=== PATIENT | female | born 1990 | race Caucasian/White ===

== ENCOUNTER → 2017-05-09 11:15 | Outpatient (CLI) | payer MEDICAID, SELFPAY ==
[2017-05-09 11:42] LABS: Absolute Lymphocyte Count 1.93 X10^3/ul (0.83-4.51); Absolute Neutrophil Count 9.8 X10^3/uL (2.0-7.7); Basophil# 0.05 X10^3/uL; Basophil% 0.4 % (0-1); Eosinophil# 0.25 X10^3/uL; Eosinophils% 1.9 % (0-5); Hematocrit 37.6 % (37-47); Hemoglobin 12.9 g/dl (12.0-15.0); Lymphocyte # 1.93 X10^3/ul (4.0); Mean Corp Hgb Conc 34.3 g/gl (32-36); Mean Corpuscular Hgb 33.6 pg (27.0-32.0); Mean Corpuscular Volume 97.9 fL (81-99); Mean Platelet Vol. 11.8 fl (6.2-12.0); Monocyte# 0.78 X10^3/uL; Monocyte% 6.1 % (0-10); Neutrophil # 9.84 X10^3/uL (2.7-7.7); Neutrophil % 76.3 % (47-70); POSITIVE COUNT NO; POSITIVE DIFFERENTIAL NO; POSITIVE MORPHOLOGY NO; Platelet Count 272 K/mm3 (150-450); RBC Distribution Width CV 11.2 % (11.6-14.6); RBC Distribution Width SD 38.8 fl (35.1-43.9); Red Blood Count 3.84 M/mm3 (4.2-5.4); White Blood Count 12.9 K/mm3 (4.4-11.0)
[2017-05-09 12:37] LABS: Rubella IgG 21.3 IU/mL
[2017-05-09 22:09] LABS: Chlamydia Trachomatis by PCR Negative (Negative); Neisserai gonorrhoeae by PCR Negative (Negative); Probe Check PASS; Sample Adequacy Control PASS; Specimen Processing Control PASS
[2017-05-10 14:43] LABS: HEPATITIS B SURFACE AG Negative (Negative)
[2017-05-16 03:55] LABS: Rapid Plasmin Reagin (RPR) NONREACTIVE (NONREACTIVE)
== END ==
PROVIDERS: Obstetrics & Gynecology; Visit Provider Nurse Practitioner Women's Health
DX: O09.91 Supervision of high risk pregnancy, unspecified, first trimester (principal); Z3A.00 Weeks of gestation of pregnancy not specified
CPT/HCPCS: 36415; 85025; 86592; 86762; 86850; 86900; 87086; 87088; 87340; 87491; 87591

== ENCOUNTER → 2017-05-26 14:17 | Outpatient (CLI) | payer MEDICAID, SELFPAY | DX: Z36.82 Encounter for antenatal screening for nuchal translucency (principal) | CPT/HCPCS: 36415 ==

== ENCOUNTER → 2017-07-04 12:34 | Outpatient (CLI) | payer MEDICAID, SELFPAY ==
[2017-07-04 14:08] LABS: HIV - WCH Non-Reactive (Nonreactive)
== END ==
PROVIDERS: Obstetrics & Gynecology; Visit Provider Nurse Practitioner Women's Health
DX: O09.91 Supervision of high risk pregnancy, unspecified, first trimester (principal); Z3A.00 Weeks of gestation of pregnancy not specified
CPT/HCPCS: 36415; 86703

== ENCOUNTER → 2017-07-18 12:15 | Outpatient (CLI) | payer MEDICAID, SELFPAY ==
--- NOTE | 2017-07-18 12:16 | US_ITS ---
STUDY: SECOND AND THIRD TRIMESTER OBSTETRICAL ULTRASOUND REASON FOR EXAM: Female, 26 years old. Routine survey. LMP: March 06, 2017. TECHNIQUE: Transabdominal PRIOR ULTRASOUND: None. FINDINGS: There is a single intrauterine fetus. The fetus is in a footling breech presentation. There is demonstrated cardiac activity with a heart rate of 142 bpm. There is a normal amniotic fluid volume. The largest amniotic fluid pocket measures 7.6 cm x 2.8 cm. The placenta is anterior in location and is not low lying. There are Grade 0 placental changes. The cervix measures 3.3 cm in length. The adnexal regions are not visualized. BIOMETRY: BPD: 4.32 cm: 19 weeks, 1 days HC: 16.17 cm: 19 weeks, 0 days AC: 14.56 cm: 20 weeks, 0 days FL: 2.84 cm: 18 weeks, 5 days CI: 77% FL/BPD: 66% FL/HC: FL/AC: 20% HC/AC: 1.1 age by current US: 19 weeks, 2 days. MACHO by current US: December 10, 2017. Estimated weight: 284 grams, +/- 42 grams, 54 %. Age by LMP: 19 weeks, 1 days. MACHO by LMP: December 11, 2017. ANATOMY: Gender: Male Cranium: Normal lateral ventricles. Choroid plexus cyst measuring 3 mm x 4 mm x 2 mm. Normal cerebellum. Normal cisterna magna. Normal face, nose and lips. Chest: Normal 4-chamber heart. Abdomen/Pelvis: Normal diaphragm. Normal stomach. Normal abdominal wall. Normal cord insertion. Normal 3 vessel cord. Normal kidneys. Normal bladder. Spine: Normal cervical spine. Normal thoracic spine. Normal lumbar spine. Normal sacrum. Extremities: Normal bilateral upper extremities. Normal bilateral lower extremities. US/OB Anatomy Scan IMPRESSION: Single live intrauterine gestation with a mean gestational age of 19 weeks and 2 days. 3 mm x 4 mm x 2 mm choroid plexus cyst. Electronically Signed: Valente Stanley MD at 20:36 EDT Tel [phone], Service support ,
== END ==
PROVIDERS: Visit Provider Obstetrics & Gynecology
DX: O09.91 Supervision of high risk pregnancy, unspecified, first trimester (principal); Z3A.00 Weeks of gestation of pregnancy not specified
CPT/HCPCS: 76805

== ENCOUNTER → 2017-07-22 12:48 | Outpatient (CLI) | payer MEDICAID, SELFPAY | PROVIDERS: Visit Provider Obstetrics & Gynecology | DX: O35.0XX0 Maternal care for (suspected) central nervous system malformation in fetus, not applicable or unspecified (principal); Z3A.00 Weeks of gestation of pregnancy not specified ==

== ENCOUNTER → 2017-09-18 15:00 | Outpatient (CLI) | payer MEDICAID, SELFPAY ==
--- NOTE | 2017-09-18 15:00 | DT_ITS ---
This patient was seen during an EMR downtime September 15, 2017 - September 22, 2017. This patient may have a combination of paper and electronic documentation or all paper documentation. All documentation is viewable within the e-chart portion of [employer] for each patient visit.
[2017-09-23 03:50] LABS: Glucose Challenge Gest 1H 50g 88 mg/dL (70-140)
[2017-09-23 03:56] LABS: Absolute Lymphocyte Count 1.99 X10^3/ul (0.83-4.51); Absolute Neutrophil Count 10.1 X10^3/uL (2.0-7.7); Basophil# 0.02 X10^3/uL; Basophil% 0.2 % (0-1); Eosinophil# 0.23 X10^3/uL; Eosinophils% 1.8 % (0-5); Hemoglobin 11.2 g/dl (12.0-15.0); Lymphocyte # 1.99 X10^3/ul (4.0); Lymphocyte % 15.2 % (19-41); Mean Corp Hgb Conc 32.9 g/gl (32-36); Mean Corpuscular Volume 94.2 fL (81-99); Mean Platelet Vol. 11.2 fl (6.2-12.0); Monocyte% 5.4 % (0-10); Neutrophil # 10.09 X10^3/uL (2.7-7.7); Neutrophil % 77.1 % (47-70); POSITIVE COUNT NO; POSITIVE DIFFERENTIAL NO; POSITIVE MORPHOLOGY NO; Platelet Count 237 K/mm3 (150-450); RBC Distribution Width CV 12.9 % (11.6-14.6); RBC Distribution Width SD 44.1 fl (35.1-43.9); Red Blood Count 3.61 M/mm3 (4.2-5.4); White Blood Count 13.1 K/mm3 (4.4-11.0)
== END ==
PROVIDERS: Visit Provider Nurse Practitioner Women's Health
DX: O09.92 Supervision of high risk pregnancy, unspecified, second trimester (principal); Z3A.00 Weeks of gestation of pregnancy not specified
CPT/HCPCS: 36415; 82950; 85025

== ENCOUNTER → 2017-11-17 19:25 | Outpatient (CLI) | payer MEDICAID, SELFPAY ==
[2017-11-17 20:40] LABS: Group B Strep DNA By PCR Negative (Negative); Internal Control PASS; Probe Check PASS; Specimen Processing Control PASS
== END ==
PROVIDERS: Visit Provider Obstetrics & Gynecology
DX: O09.91 Supervision of high risk pregnancy, unspecified, first trimester (principal); Z3A.00 Weeks of gestation of pregnancy not specified
CPT/HCPCS: 87081; 87653

== ENCOUNTER 2017-12-01 15:40 | Inpatient (IN) | payer MEDICAID, SELFPAY ==
[2017-12-01 16:04] VITALS: BMI 28.3
[2017-12-01] MEDS: 0.9% Saline Lock 10 ML Syringe IV (16:56)
[2017-12-01 17:22] LABS: Hematocrit 37.1 % (37-47); Hemoglobin 12.2 g/dl (12.0-15.0); Mean Corp Hgb Conc 32.9 g/gl (32-36); Mean Corpuscular Hgb 30.4 pg (27.0-32.0); Mean Corpuscular Volume 92.5 fL (81-99); Mean Platelet Vol. 10.9 fl (6.2-12.0); Platelet Count 265 K/mm3 (150-450); RBC Distribution Width CV 12.8 % (11.6-14.6); RBC Distribution Width SD 43.1 fl (35.1-43.9); Red Blood Count 4.01 M/mm3 (4.2-5.4); White Blood Count 13.1 K/mm3 (4.4-11.0)
[2017-12-01 17:24] LABS: Scan Indicated on CBC? Y/N NO
[2017-12-01] MEDS: miSOPROStol 25 MCG TABLET VAGINAL ×2 (18:21→23:00)
--- NOTE | 2017-12-02 01:04 | PCM.HP.OB ---
- Problem List (1) Oligohydramnios Status: Acute (2) Choroid plexus cyst of fetus Status: Acute Qualifiers: Comment: normal NIPT screening, no further fu indicated (3) Tobacco use complicating Status: Acute Qualifiers: Comment: encouraged cessation (4) Supervision of high risk in first trimester Status: Acute Comment: PRR MACHO 12/11/17 boyfriend Sukhwinder KOSTAS Leyva History Date of Admission: 12/02/17 Final MACHO: 12/11/17 Gestational age: 38 Weeks and 5 Days History of this : This is a 27 year-old, at 38 weeks gestational age with oligohydramnios, an danny of 3.8 cm in the office today. she denies any lof, vb. she admits good fm and has no regular ctx. Allergies No Known Allergies Allergy (Verified 12/01/17 16:15) Home Medications: Home Medications [place]-3/Dha/Epa/Fish Oil [Fish Oil 1,000 mg Softgel] 1 each PO DAILY 12/01/17 [id number] fum 28 mg-folic acid 800 mcg-dha 200 mg oral pack See Label Instructions PO .COMPLEX 12/01/17 Smoking Status: Light Smoker (<10/day) Alcohol: None Number of Fetus(es): 1 Heart Tracin moderate variability reactive no decels cat I tracing TOCO Analysis: irregular History Past Pregnancies: Past Pregnancies Delivery Date Name GA/Weeks Outcome Route Weight Infant Gender Labor Length Anesthesia Delivery Location Provider FOB Labs: Mom's Labs & Results 12/01/17 12/01/17 16:56 16:56 WBC 13.1 H RBC 4.01 L Hgb 12.2 Hct 37.1 MCV 92.5 MCH 30.4 MCHC 32.9 RDW 12.8 RDW Differential 43.1 Plt Count 265 MPV 10.9 Blood Type O POSITIVE Antibody Screen NEGATIVE Course Did the patient receive Yes care? Labs Blood Type: O RH: POSITIVE RPR/VDRL/Syphilis Nonreactive Rubella status Immune HbSAg Negative Date Done: 05/09/17 Chlamydia Negative Gonorrhea Negative HIV/AIDS Non-Reactive Group B Strep: Negative Current Obstetrical History Gestational Diabetes No Incompetent Cervix No Infertility No IUGR No Macrosomia No Hypertension/Pre-eclampsia No Placenta Previa/Abruption No PTL/PROM No Uterine anomaly No Oligohydramnios No Polyhydramnios No Multiple gestation No Past Medical History Asthma No Diabetes No Hypertension No Heart disease No Mitral valve prolapse No Neurologic/Seizure disorder/ No Migraines Kidney disease No Liver disease No Varicosities No Clotting disorders/Hx of DVT No Thyroid Dysfunction No Other medical diseases No Psychiatric disorders No Major trauma No Abnormal PAP smear No Sleep apnea No Mammogram in the last 2 years Yes Social History Marital Status: SINGLE Alleged father luann gomez Hx Smoking Yes Smoking Status Light Smoker (<10/day) How long have you used na substances (years)? Expected Infant Delivery Method: Spontaneous Vaginal Review of Systems Constitutional: Denies: Fever, Malaise Eyes: Denies: Blurred vision, Vision Change HEENT: Denies: Head Aches, Visual Changes Cardiovascular: Denies: Chest Pain, Palpitations Respiratory: Denies: Cough, Shortness of Breath, Wheezing Gastrointestinal: Denies: Abdominal Pain, Diarrhea, Nausea, Vomiting Genitourinary: Denies: Dysuria, Hematuria Musculoskeletal: Denies: Joint Pain, Muscle pain Skin: Denies: Lesions, Rash Neurological: Denies: Blurred vision, Focal weakness, Headaches Psychiatric: Denies: Anxiety, Depression Endocrine: Denies: Heat/ Cold Intolerance Hematologic/ Lymphatic: Denies: Easy Bruising, Easy Bleeding Physical Exam General: Alert, Cooperative, No apparent distress HEENT: Atraumatic, Normocephalic. Negative for: Thyromegaly, Lymphadenopathy Cardiovascular: Regular rate Lungs: Normal air movement Abdomen: Soft, Non Tender, Gravid Neurological: Deep Tendon Reflexes 2+/4 and Symmetrical, Neuro grossly intact. Negative for: Clonus [employer]: Normal external genitalia. Negative for: Vulvar lesions Estimated gestational size: Appropriate for gestational size Presentation: Cephalic Cervix Dilation (cm): 1 Station: -2 Effacement (%): 50 Assessment/Plan All Active Problems (Last Reviewed 12/01/17 @ 14:45 by Angelique Lind) Oligohydramnios (Acute) Uterine size date discrepancy (Acute) Choroid plexus cyst of fetus (Acute) Tobacco use complicating (Acute) Supervision of high risk in first trimester (Acute) screening encounter (Resolved) This is a 27 year-old, at 38 weeks gestational age presents IOL oligo 1. oligohydramnios - 3.8 cm DANNY in office today Patient presents IOL cytotec then pitocin, plan expectant management for . AROM when able Pain management: plans epidural. GBS negative. Management of any complications: none I have reviewed the [facility] and made any clinically relevant updates.
[2017-12-02] MEDS: miSOPROStol 25 MCG TABLET VAGINAL ×4 (03:00→15:00)
[2017-12-02] MEDS: 0.9% Saline Lock 10 ML Syringe IV ×2 (06:46→13:44)
[2017-12-02] MEDS: Nalbuphine 10 MG/ML Ampul IV ×2 (13:44→22:30)
--- NOTE | 2017-12-02 18:00 | PCM.PN.BLA ---
Progress Note fht 130s moderate variability reative no decels toco q3-4. s/p cytotec x 6 will proceed to pitocin. exp managemnt
[2017-12-02] MEDS: Lactated Ringers 1,000 ML 50 ML IV ×2 (19:24→22:08)
[2017-12-02] MEDS: Oxytocin 30 units/NS 500 ml 30 UNITS/500 ML IV.SOLN IV (19:25)
[2017-12-03] MEDS: Amnioinfusion- 0.9% NS 1,000 ML IV.SOLN. INTRA-UTER (00:45)
[2017-12-03] MEDS: Oxytocin 30 units/NS 500 ml 30 UNITS/500 ML IV.SOLN 334 UNITS IV (01:05)
[2017-12-03] MEDS: Oxytocin 30 units/NS 500 ml 30 UNITS/500 ML IV.SOLN 167 UNITS IV (01:35)
[2017-12-03 09:45] VITALS: BP 101/52; PULSE 91; RESP 18; TEMP 37.2
[2017-12-03] MEDS: Ibuprofen 600 MG Tablet PO (10:30)
[2017-12-03 13:00] VITALS: BP 120/67; PULSE 96; RESP 16; TEMP 37.2
[2017-12-03] MEDS: Acetaminophen 500 MG Tablet 1000 MG PO ×2 (14:48→23:08)
[2017-12-03 17:00] VITALS: BP 107/67; PULSE 96; RESP 20; TEMP 36.4
[2017-12-03 20:15] VITALS: BP 130/75; PULSE 103; RESP 16; TEMP 36.5
[2017-12-04 01:15] VITALS: BP 110/56; PULSE 100; RESP 16; TEMP 36.9
[2017-12-04] MEDS: Naproxen 250 MG Tablet PO ×2 (05:27→17:18)
[2017-12-04 08:00] VITALS: BP 99/56; PULSE 84; RESP 16; TEMP 36.3
--- NOTE | 2017-12-04 08:01 | PCM.PN.OB ---
Patient Problems: Active and Suspected Problems (Last Reviewed 12/01/17 @ 14:45 by Angelique Lind) Oligohydramnios (Acute) Subjective: No CP, LOF. Doing well without concerns. Pain controlled. - Physical Exam General: Alert, Oriented x3 Abdomen: - - FF below U Vital Signs Temp Pulse Resp BP 98.4 F 100 16 110/56 L 12/04/17 01:15 12/04/17 01:15 12/04/17 01:15 12/04/17 01:15 Oxygen Delivery Method Room Air Weight: 164 lb 14.492 oz Body Mass Index (BMI) 28.3 Intake and Output for Last 24 Hours 12/02/17 12/03/17 12/04/17 23:59 23:59 23:59 Intake Total 1999 2499 / 2499 Output Total 1200 / 1200 500 / 500 Balance 800 / 800 1998 Medical Necessity - Tobacco Use Smoking Status: Light Smoker (<10/day) Assessment/Plan All Active Problems (Last Reviewed 12/01/17 @ 14:45 by Angelique Lind) Oligohydramnios (Acute) Uterine size date discrepancy (Acute) Choroid plexus cyst of fetus (Acute) Tobacco use complicating (Acute) Supervision of high risk in first trimester (Acute) screening encounter (Resolved) PPD#1: Routine care, .
[2017-12-04 13:19] VITALS: BP 121/68; PULSE 94; RESP 18; TEMP 36.8
[2017-12-04] MEDS: Prenatal Vits Tablet 1 TABLET PO (17:13)
[2017-12-04 20:15] VITALS: BP 122/62; PULSE 92; RESP 16; TEMP 36.9
[2017-12-05 03:20] VITALS: BP 109/56; PULSE 88; RESP 16; TEMP 36.6; O2SAT 100
[2017-12-05 08:11] VITALS: BP 102/61; PULSE 82; RESP 16; TEMP 36.9
--- NOTE | 2017-12-05 10:40 | PCM.OB.VAG ---
- Problem List (1) Oligohydramnios Status: Acute (2) Choroid plexus cyst of fetus Status: Acute Qualifiers: Comment: normal NIPT screening, no further fu indicated (3) Tobacco use complicating Status: Acute Qualifiers: Comment: encouraged cessation (4) Supervision of high risk in first trimester Status: Acute Comment: PRR MACHO 12/11/17 boyfriencecy Leyva Vaginal Delivery Maternal Presentation: Medically Indicated Induction iol oligo Amniotic Membrane Rupture Type: Artificial Amniotic Fluid Description: Clear Final MACHO: 12/11/17 Gestational age: 39 Weeks and 1 Days Date of Procedure: 12/03/17 Pre-Operative Diagnosis: iol oligo Post-Operative Diagnosis: same Surgery/ Procedure Performed: Spontaneous Vaginal Delivery Type of Anesthesia: Epidural Description of Procedure: Patient began pushing and delivered the head in the JADA presentation. The head was delivered atraumatically and a loose nuchal cord ?1 was identified and easily reduced over the infant's head. The anterior and posterior shoulders delivered without complication followed by the rest of the and the infant was placed on the maternal abdomen. Delayed cord clamping was employed for approximately 60 seconds. Cord was clamped and cut and gentle traction was applied to the cord and the placenta delivered spontaneously immediately following it was noted to be intact with three-vessel cord. The perineum and vagina were inspected and noted to have a 1st degree laceration repaired in the usual fashion with 3-0 vicryl rapide. EBL was 200 cc. Patient and tolerated delivery well.
--- NOTE | 2017-12-05 10:42 | PCM.PN.OB ---
Patient Problems: Active and Suspected Problems (Last Reviewed 12/01/17 @ 14:45 by Angelique Lind) Oligohydramnios (Acute) Subjective: doing well no complaints - Physical Exam General: Alert, Oriented x3 Vital Signs Temp Pulse Resp BP Pulse Ox 98.4 F 82 16 102/61 100 12/05/17 08:11 12/05/17 08:11 12/05/17 08:11 12/05/17 08:11 12/05/17 03:20 Oxygen Delivery Method Room Air Weight: 164 lb 14.492 oz Body Mass Index (BMI) 28.3 Intake and Output for Last 24 Hours 12/03/17 12/04/17 12/05/17 23:59 23:59 23:59 Intake Total 2499 / 2499 Output Total 500 / 500 Balance 1998 Medical Necessity - Tobacco Use Smoking Status: Light Smoker (<10/day) Assessment/Plan All Active Problems (Last Reviewed 12/01/17 @ 14:45 by Angelique Lind) Oligohydramnios (Acute) Uterine size date discrepancy (Acute) Choroid plexus cyst of fetus (Acute) Tobacco use complicating (Acute) Supervision of high risk in first trimester (Acute) screening encounter (Resolved) s/p routine care dc home today
--- NOTE | 2017-12-05 10:42 | PCM.DCVAG ---
Discharge Diet: No Restrictions Discharge Activity: Return to Normal Activity, May not drive while taking narcotic pain medications., May Shower May resume sexual activity in: 4-6 weeks Call your doctor if your incision/area has: Continuous Slow Oozing, Sudden Increased Bleeding, Increased Pain/ Swelling, Increased Redness, Foul Smelling Discharge Additional Instructions: If you experience any of the following, contact your healthcare provider. Bleeding that soaks a pad every hour for 2 hours Fever 100.4 or higher Unrelieved incision or abdominal pain Swelling, redness, discharge or bleeding from your incision or episiotomy site Your incision begins to separate Problems urinating (including inability to urinate or burning while urinating). Visual changes Severe headache Flu-like symptoms Pain or redness in one of both of your breasts Pain, warmth, tenderness or swelling in your legs, especially the calf area Frequent nausea and vomiting Symptoms of depression or anxiety If you experience any of the following, call 911 or go to the nearest Emergency Room. Chest pain Problems breathing Seizure activity Partial or complete paralysis of a body part, slurred speech, weakness or drooping of the face, or a sudden inability to walk or hold your balance Allergies/Adverse Reactions: Allergies No Known Allergies Allergy (Verified 12/01/17 16:15) Medications to take at Discharge [place]-3/Dha/Epa/Fish Oil [Fish Oil 1,000 mg Softgel] 1 each PO DAILY 12/01/17 [id number] fum 28 mg-folic acid 800 mcg-dha 200 mg oral pack See Label Instructions PO .COMPLEX 12/01/17 Please Follow Up With: Justine Torres MD - [phone] When: Call to make an appointment with your doctor in 6 weeks. If you had elevated Blood pressure or 4th degree laceration you will need to be seen in 2 weeks. Primary Care Physician: Care Physician,No Primary [Primary Care Provider] - Test Results: Test results from this visit will be discussed in further detail at your follow-up appointment, if applicable.
[2017-12-05 14:00] VITALS: BP 130/62; PULSE 96; RESP 16; TEMP 36.5
== END 2017-12-05 19:55 | disposition home or self-care (01) | DRG 373 ==
PROVIDERS: Admitting Provider Obstetrics & Gynecology; Visit Provider Obstetrics & Gynecology
DX: O41.03X0 Oligohydramnios, third trimester, not applicable or unspecified (principal); O26.843 Uterine size-date discrepancy, third trimester; O35.8XX0 Maternal care for other (suspected) fetal abnormality and damage, not applicable or unspecified; O99.334 Smoking (tobacco) complicating childbirth; F17.200 Nicotine dependence, unspecified, uncomplicated; O70.0 First degree perineal laceration during delivery; Z3A.38 38 weeks gestation of pregnancy; Z37.0 Single live birth
CPT/HCPCS: 59025; 59050; 85027; 86850; 86900; 99218; J7030; J7120; A4216; G0378

== ENCOUNTER → 2018-04-10 16:35 | Outpatient (CLI) | payer MEDICAID, SELFPAY ==
[2018-04-08 16:58] VITALS: BMI 28.3
[2018-04-10 17:58] LABS: hCG Titer Quant., Serum 887 mIU/mL (<9 non-preg)
== END ==
PROVIDERS: Referring Provider Obstetrics & Gynecology; Visit Provider Obstetrics & Gynecology
DX: N91.2 Amenorrhea, unspecified (principal)
CPT/HCPCS: 36415; 84702

== ENCOUNTER → 2018-05-04 17:53 | Outpatient (CLI) | payer MEDICAID, SELFPAY ==
[2018-05-04 13:10] VITALS: BMI 25.5
[2018-05-08 13:55] LABS: HPV Reflexed? NOT INDICATED
--- OUTSIDE RECORDS SUMMARY | 2018-07-07 05:17 | XMS RPT_ITS ---
:1990 Author Organization OHIP Support Name Relationship Address Phone RESNEHEMIAS JCA Unavailable [address] + [place] [address] UE Unavailable Unavailable Unavailable VOJTECH, VOLODYMYR Unavailable [address] + [place] [address] RESHOSEA ROBYN Unavailable [address] + [place] [address] UE Unavailable Unavailable Unavailable VOJTECH, VOLODYMYR Unavailable [address] + [place] [address] RESMUS ROBYN Unavailable [address] + [place] [address] UE Unavailable Unavailable Unavailable VOJTECH, VOLODYMYR Unavailable [address] + [place] [address] RESMUS, ROBYN Unavailable [address] + [place] [address] UE Unavailable Unavailable Unavailable VOJTECH, VOLODYMYR Unavailable [address] + [place] [address] RESMUS, ROBYN Unavailable [address] + [place] [address] UE Unavailable Unavailable Unavailable VOJTECH, VOLODYMYR Unavailable [address] + [place] [address] RESMUS, ROBYN Unavailable [address] + [place] [address] UE Unavailable Unavailable Unavailable VOJTECH, VOLODYMYR Unavailable [address] + [place] [address] RESMUS, ROBYN Unavailable [address] + [place] [address] UE Unavailable Unavailable Unavailable RESMUS, ROBYN Unavailable [address] + [place] [address] UE Unavailable Unavailable Unavailable RESMUS, ROBYN Unavailable [address] + [place] [address] UE Unavailable Unavailable Unavailable VOJTECH, VOLODYMYR Unavailable [address] + [place] [address] RESMUS, ROBYN Unavailable [address] + [place] [address] UE Unavailable Unavailable Unavailable RESMUS, ROBYN Unavailable [address] + [place] [address] UE Unavailable Unavailable Unavailable VOJTECH, VOLODYMYR Unavailable [address] + [place] [address] RESMUS, ROBYN Unavailable [address] + [place] [address] UE Unavailable Unavailable Unavailable VOJTECH, VOLODYMYR Unavailable [address] + [place] [address] RESMUS, ROBYN Unavailable [address] + [place] [address] UE Unavailable Unavailable Unavailable RESMUS, ROBYN Unavailable [address] + [place] [address] UE Unavailable Unavailable Unavailable RESMUS, ROBYN Unavailable [address] + [place] [address] UE Unavailable Unavailable Unavailable RESMUS, ROBYN Unavailable [address] + [place] [address] UE Unavailable Unavailable Unavailable RESMUS, ROBYN Unavailable [address] + [place] [address] UE Unavailable Unavailable Unavailable RESMUS, ROBYN Unavailable [address] + [place] [address] UE Unavailable Unavailable Unavailable RESMUS, ROBYN Unavailable [address] + [place] [address] UE Unavailable Unavailable Unavailable RESMUS, ROBYN Unavailable [address] + [place] [address] UE Unavailable Unavailable Unavailable RESMUS, ROBYN Unavailable [address] + [place] [address] UE Unavailable Unavailable Unavailable RESMUS, ROBYN Unavailable [address] + [place] [address] UE Unavailable Unavailable Unavailable RESMUS, ROBYN Unavailable [address] + [place] [address] UE Unavailable Unavailable Unavailable RESMUS, ROBYN Unavailable [address] + [place] [address] UE Unavailable Unavailable Unavailable RESMUS, ROBYN Unavailable [address] + [place] [address] UE Unavailable Unavailable Unavailable RESMUS, ROBYN Unavailable [address] + [place] [address] UE Unavailable Unavailable Unavailable RESMUS, ROBYN Unavailable [address] + [place] [address] UE Unavailable Unavailable Unavailable RESMUS, ROBYN Unavailable [address] + [place] [address] UE Unavailable Unavailable Unavailable RESMUS, ROBYN Unavailable [address] + [place] [address] UE Unavailable Unavailable Unavailable RESMUS, ROBYN Unavailable [address] + [place] [address] UE Unavailable Unavailable Unavailable RESMUS, ROBYN Unavailable [address] + [place] [address] UE Unavailable Unavailable Unavailable RESMUS, ROBYN Unavailable [address] + [place] [address] UE Unavailable Unavailable Unavailable RESMUS, ROBYN Unavailable [address] + [place] [address] UE Unavailable Unavailable Unavailable RESMUS, ROBYN Unavailable [address] + [place] [address] UE Unavailable Unavailable Unavailable TOBIAS BAEZA Unavailable [address] + [place] [address] RESMUS, ROBYN Unavailable [address] + [place] [address] UE Unavailable Unavailable Unavailable Care Team Providers Name Role Phone DULCE COOPER Attending Unavailable JUSTINE SANCHEZ Referring Unavailable NO PRIMARY CARE, MD Primary Care Unavailable Ivanauskas, Saulius Admitting Unavailable Ivanauskas, Saulius Attending Unavailable No Doctor Assigned, Nodr Primary Care Unavailable MarcanthonyJustine Attending Unavailable Primay Care Physicia, No Referring Unavailable Marcanthony, Justine Attending Unavailable Marcanthony, Justine Referring Unavailable Primay Care Physicia, No Primary Care Unavailable Cooper Dulce Attending Unavailable Primay Care Physicia, No Primary Care Unavailable Marcanthony, Justine Attending Unavailable Primay Care Physicia, No Referring Unavailable Marcanthony, Justine Attending Unavailable Primay Care Physicia, No Primary Care Unavailable Marcanthony, Justine Referring Unavailable Marcanthony, Justine Attending Unavailable Primay Care Physicia, No Referring Unavailable JerilynPage Attending Unavailable Primay Care Physicia, No Referring Unavailable Primay Care Physicia, No Primary Care Unavailable Marcanthony, Justine Attending Unavailable Primay Care Physicia, No Referring Unavailable Primay Care Physicia, No Primary Care Unavailable JerilynPage Attending Unavailable JerilynPage Referring Unavailable Primay Care Physicia, No Primary Care Unavailable Marcanthony, Justine Attending Unavailable MarcanthonyJustine Referring Unavailable Primay Care Physicia, No Primary Care Unavailable CooperDulce kapadia Attending Unavailable Primay Care Physicia, No Primary Care Unavailable Marcanthony, Justine Attending Unavailable MarcanthonyJustine Referring Unavailable Primay Care Physicia, No Primary Care Unavailable Marcanthony, Justine Attending Unavailable Primay Care Physicia, No Referring Unavailable Primay Care Physicia, No Primary Care Unavailable JerilynPage Attending Unavailable Primay Care Physicia, No Referring Unavailable Primay Care Physicia, No Primary Care Unavailable [place], Page Attending Unavailable [place], Page Referring Unavailable Primay Care Physicia, No Primary Care Unavailable Jerilyn, Page Attending Unavailable Primay Care Physicia, No Referring Unavailable Marcanthony, Justine Attending Unavailable Primay Care Physicia, No Referring Unavailable Marcanthony, Justine Attending Unavailable Primay Care Physicia, No Referring Unavailable Marcanthony, Justine Attending Unavailable Primay Care Physicia, No Referring Unavailable Jerilyn, Page Attending Unavailable Primay Care Physicia, No Referring Unavailable Primay Care Physicia, No Primary Care Unavailable Marcanthony, Justine Attending Unavailable Primay Care Physicia, No Referring Unavailable Primay Care Physicia, No Primary Care Unavailable Marcanthony, Justine Attending Unavailable Primay Care Physicia, No Referring Unavailable Primay Care Physicia, No Primary Care Unavailable Marcanthony, Justine Attending Unavailable Primay Care Physicia, No Referring Unavailable Primay Care Physicia, No Primary Care Unavailable Marcanthony, Justine Attending Unavailable Primay Care Physicia, No Referring Unavailable Primay Care Physicia, No Primary Care Unavailable Marcanthony, Justine Attending Unavailable [place], Page Attending Unavailable Primay Care Physicia, No Referring Unavailable Primay Care Physicia, No Primary Care Unavailable Marcanthony, Justine Attending Unavailable Primay Care Physicia, No Referring Unavailable Primay Care Physicia, No Primary Care Unavailable Marcanthony, Justine Admitting Unavailable Marcanthony, Justine Attending Unavailable Marcanthony, Justine Referring Unavailable Primay Care Physicia, No Primary Care Unavailable Marcanthony, Justine Attending Unavailable Primay Care Physicia, No Referring Unavailable Marcanthony, Justine Attending Unavailable Primay Care Physicia, No Referring Unavailable Marcanthony, Justine Admitting Unavailable Marcanthony, Justine Attending Unavailable Marcanthony, Justine Referring Unavailable Primay Care Physicia, No Primary Care Unavailable Marcanthony, Justine Consulting Unavailable Marcanthony, Justine Admitting Unavailable [place], Page Attending Unavailable Marcanthony, Justine Referring Unavailable Primay Care Physicia, No Primary Care Unavailable Marcanthony, Justine Consulting Unavailable Marcanthony, Justine Admitting Unavailable Marcanthony, Justine Attending Unavailable Marcanthony, Justine Referring Unavailable Primay Care Physicia, No Primary Care Unavailable Marcanthony, Justine Consulting Unavailable Marcanthony, Justine Attending Unavailable Primay Care Physicia, No Referring Unavailable Marcanthony, Justine Attending Unavailable Primay Care Physicia, No Referring Unavailable Primay Care Physicia, No Primary Care Unavailable PROBLEMS PROBLEMS DATE TYPE CONDITION / CODE ATTENDING STATUS SOURCE 05/05/2018 Unknown Z12.4 - Encounter Melissa, Active Eva for screening for [facility] malignant neoplasm Hospital of cervix / Repository Z12.4(ICD-10) 05/04/2018 Unknown Z34.90 - Encounter Melissa, Active Prentice for supervision of [facility] normal , Hospital unspecified, Repository unspecified trimester / Z34.90(ICD-10) 05/04/2018 Unknown O02.1 - Missed Melissa, Active Eva / [facility] O02.1(ICD-10) Hospital Repository 11/24/2017 Unknown O09.91 - Page Jean-Baptiste Active Eva Supervision of [facility] high risk Hospital , Repository unspecified, first trimester / O09.91(ICD-10) 11/24/2017 Unknown O99.333 - Smoking JerilynPage young Active Eva (tobacco) [facility] complicating Hospital , third Repository trimester / O99.333(ICD-10) 11/24/2017 Unknown O35.0XX0 - FarmingtonPage Active Prentice Maternal care for [facility] (suspected) Hospital central nervous Repository system malformation in fetus, not applicable or unspecified / O35.0XX0(ICD-10) 11/24/2017 Unknown Z3A.37 - 37 weeks JerilynPage young Active Eva gestation of [facility] / Hospital Z3A.37(ICD-10) Repository 10/08/2017 Unknown O09.92 - JerilynPage young Active Prentice Supervision of [facility] high risk Hospital , Repository unspecified, second trimester / O09.92(ICD-10) 07/03/2017 Unknown Z36.82 - Encounter Neil, Active Prentice for [facility] screening for [facility] nuchal Repository translucency / Z36.82(ICD-10) 05/09/2017 Unknown Z36.9 - Encounter Melissa, Active Prentice for [facility] unspecified / Repository Z36.9(ICD-10) PROCEDURES PROCEDURES No Procedure Records FoundRESULTS RESULTS 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 [address] [place] [address] OFFICE VISIT Date of Service: 05/06/18 MR#: [id number] Acct: [id number] Name: TOBIAS BAEZA Rep #: [id number] : 1990 Provider: Justine Sanchez MD Age/Sex: 27/F [place] [facility] [place]: Signed Intake Vital Signs05/06/18 Height 5 ft 4 in 05/06/18 Weight: 149 lb 8 oz 05/06/18 Body Mass Index (BMI) 25.6 05/06/18 Blood Pressure 118/78 05/06/18 Body Mass Index (BMI) 25.5 Intake Visit Reasons: FU miscarriage Accompanied by: Allergies No Known Allergies Allergy (Verified 05/04/18 13:11) Medications vitamin no.76-iron,carbonyl 29 mg iron-folic acid 1 mg tablet 1 tab PO DAILY #90 tab 04/29/18 [Rx Confirmed 05/04/18] citalopram 20 mg tablet 20 mg PO DAILY 05/04/18 [History Confirmed 05/04/18] misoprostol 200 mcg tablet 800 mcg PO .complex #4 tab 05/04/18 [Rx Confirmed 05/04/18] oxycodone-acetaminophen 5 mg-325 mg tablet 1 tab PO Q4H PRN #20 tab 05/04/18 [Rx Confirmed 05/04/18] oxycodone-acetaminophen 5 mg-325 mg tablet 1 tab PO Q4H PRN #10 tab 05/06/18 [Rx Confirmed 05/06/18] PFSH Family History Father No known health problems Mother No known health problems Social History household members: family housing: apartment current occupational status: unemployed pets and animals: No Smoking Status: Light Smoker (<10/day) second hand exposure: Yes substance use type: does not use do you feel safe at home: Yes additional social history: Sukhwinder HPI FU miscarriage: Details: TOBIAS BAEZA is a 27 year old who presents for fu of miscarriage. she passed a few clots and has had some cramping. she has taken Pregancy History 2 Elective abortions Hx Para 1 Spontaneous abortions 1 Past Pregnancies Del. DateName GA/Weeks Outcome Route Bth WeighInfant GeLabor LgtAnesthesiDel LocatProvider FOB t n h a n Delivery Date: 12/01/17 On 04/01/18 @ 14:45 Zandra Alvarado [place], Delivery Date: 04/16/04 On 04/22/17 @ 10:33 Moriah Montgomery SAB Assessment AND Plan Problems 1. Missed O02.1 Plan additional cytotec dose recommended but almost complete passage, sac not seen. recommend 2 weeks HCG level check. 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 [place] [address] OFFICE VISIT Date of Service: 05/04/18 MR#: [id number] Acct: [id number] Name: ARYANTOBIAS Sukh Rep #: [id number] : 1990 Provider: Justine Sanchez MD Age/Sex: 27/F [place] [facility] [place]: Signed Intake Vital Signs05/04/18 Height 5 ft 4 in 05/04/18 Weight: 149 lb 05/04/18 Body Mass Index (BMI) 25.5 05/04/18 Blood Pressure 112/70 Intake Visit Reasons: NEW OB Chief Complaint: NEW OB Forensic Examiner Required: No Is patient in pain?: No Allergies No Known Allergies Allergy (Verified 05/04/18 13:11) Medications vitamin no.76-iron,carbonyl 29 mg iron-folic acid 1 mg tablet 1 tab PO DAILY #90 tab 04/29/18 [Rx Confirmed 05/04/18] citalopram 20 mg tablet 20 mg PO DAILY 05/04/18 [History Confirmed 05/04/18] misoprostol 200 mcg tablet 800 mcg PO .complex #4 tab 05/04/18 [Rx Confirmed 05/04/18] Last Menstral Period: 03/05/18 Zika: Zika virus screening: Negative : No PFSH PFSH Family History Father No known health problems Mother No known health problems Social History household members: family housing: apartment current occupational status: unemployed pets and animals: No Smoking Status: Light Smoker (<10/day) second hand exposure: Yes substance use type: does not use do you feel safe at home: Yes additional social history: Sukhwinder Pregancy History 2 Elective abortions Hx Para 1 Spontaneous abortions 1 Past Pregnancies Del. DateName GA/Weeks Outcome Route Bth WeighInfant GeLabor LgtAnesthesiDel LocatProvider FOB t n h a n Delivery Date: 12/01/17 On 04/01/18 @ 14:45 AlvaradoArjun kapadiaie [place], Delivery Date: 04/16/04 On 04/22/17 @ 10:33 Moriah Montgomery SAB HPI NEW OB: Details: TOBIAS BAEZA is a 27 year old who presents for New OB visit. OB Visit Comments: bedside ultrasound shows empty gestational sac 2.8 cm with no yok sac and no pole seen, confirmed blighted ovum and right 2 cm corpus luteal cyst, no free fluid in cul de sac. confirmed missed , subchorionic hemorrhage seen Menstrual History Last Menstral Period: 03/05/18 Reported LMP: definite Normal amount/duration: Yes On hormonal BC at conception: No Antepartum Record Genetic Screening: Congenital Heart Defect: Other, Neural Tube Defect: Other, Hemoglobinopathy Or Carrier: Other, Cystic Fibrosis: Other, Chromosome Abnormality: Other, Stanley-Sachs: Other, Hemophilia: Other, Intellectual Disability/Autism: Other, Recurrent Loss/Stillbirth: Patient, Other Structural Defect: Other, Other Genetic Disease: Other, Maternal Metabolic Disorder: Other Comments/Counseling: SIDS within 2 months of age with son Infection History: Live with someone with TB or Exposed to TB: No, Patient or Partner has history of Genital Herpes: No, Rash or Viral illness since last mentrual period: No, Prior GBS-Infected child: No, History of STD: No, HIV Infection: No, History of Hepatitis: No, Recent travel outside of [place]: No, Concern for Hep exposure: No, Varicella immune: Yes Medical History Medical History: Negative: Diabetes, Hypertension, Heart disease, Auto-immune disorder, Kidney disease/UTI, Neurologic/epilepsy, Psychiatric, Depression/ depression, Hepatitis/liver disease, Varicosities/phlebitis, Thyroid dysfunction, Trauma/domestic violence, History of blood transfusions, D (Rh) Sensitized, Pulmonary (e.g.,TB,Asthma), Seasonal allergies, Drug/latex allergies/reactions, Breast, Patient Carrier surgery, Operations/hospitalizations, Anesthetic complications, History of abnormal pap, Uterine anomaly/ami, Infertility, Anti-retroviral treatment, Relevant family history, Other ACOG First Trimester First Trimester: Desire for , Alcohol, Tobacco Cessation, Illicit/Recreational Drug/Substance Use, Intimate Partner Violence, Barriers to care, Unstable Housing, Communication Barriers, Environmental/Work Hazards, Anticipated Course of Care, Nurtrition and weight gain, Toxoplasmosis Precations, Use of Any medications, Sexual activity, Exercise, Dental Care, Sauna/Hot tub use, Seat Belt use, Childbirth classes/Hospital facilities, , Travel, Indications for US and Screening for Aneuploidy ROS Const Denies fever(s), Reports system reviewed and no additional complaints, except as docu, Reports fatigue Eyes Reports system reviewed and no additional complaints, except as docu ENT Reports system reviewed and no additional complaints, except as docu Card Denies chest pain, Denies shortness of breath Resp Reports system reviewed and no additional complaints, except as docu, Denies shortness of breath, Denies cough GI Reports nausea, Denies abdominal pain Reports system reviewed and no additional complaints, except as docu Musc Reports system reviewed and no additional complaints, except as docu Skin/Breast Reports system reviewed and no additional complaints, except as docu Neuro Yes system reviewed and no additional complaints, except as docu Psych Reports system reviewed and no additional complaints, except as docu Endo Reports fatigue, Reports system reviewed and no additional complaints, except as docu Exam Const General: healthy appearing, comfortable, no acute distress Orientation: alert [facility] Head: normal to inspection, atraumatic, normocephalic Ears: external ears normal, hearing grossly normal bilaterally Nose: nares normal, external nose normal Mouth: oral mucosae normal Teeth and gingiva: dentition normal Eyes General: appearance normal, both eyes and all related structures Neck Neck: no lymphadenopathy, supple, normal visual inspection Thyroid: thyroid normal Resp Effort AND Inspection: normal respiratory effort GI Inspection: normal to inspection Palpation: soft, no hepatosplenomegaly General: bladder normal to palpation External Female Exam: normal external appearance, normal appearance of the urethra Urethra: normal appearance of the urethra Speculum Exam - Vagina: normal appearance of the vagina, normal vaginal discharge Speculum Exam - Cervix: normal appearance of the cervix Bimanual Exam- Vagina AND Uterus: bladder normal to palpation, normal bimanual exam, uterus non-tender, other Bimanual Exam- Adnexa, other: adnexae non-tender Skin General: no rashes or lesions noted Neuro Motor: muscle tone normal throughout, no movement abnormalities noted Extrem General: normal to inspection, full ROM Assessment AND Plan Problems 1. Missed O02.1 Plan ultrasound done no yolk sac or pole seen, 7w3d sac measuring and subchorinic hemorrhage seen. discussed options of cytotec versus surgical management- plan cytotec and fu friday, plan d and c if retained products. Orders Orders: Medications New: Supplemental Info ACOG book given and patient encouraged to read about nutrition, exercise, weight gain, and food avoidance in . 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 of containers..01 ThinPrep Vial TYPE CODE TESTS RESULT OUT OF RANGE REFERENCE UNITS LAB L7400.0800 . Normal DIAGN Comment Result Comment: NEGATIVE FOR INTRAEPITHELIAL LESION OR MALIGNANCY. LAB L7400.0900 . Normal ADEQ Comment Result Comment: Satisfactory for evaluation. Endocervical and/or squamous metaplastic cells (endocervical component) are present. LAB L7400.1400 . Normal PERFORM Comment Result Comment: Barber Newby, Rubber Mixer (ASCP) LAB L7400.2575 . Normal TEST METHOD Comment Result Comment: This liquid based ThinPrep(R) pap test was screened with the use of an image guided system. LAB L7400.2600 . Normal . COMM LAB L7400.2700 . Normal PAPSMR Comment Result Comment: The Pap smear is a screening test designed to aid in the detection of premalignant and malignant conditions of the uterine cervix. It is not a diagnostic procedure and should not be used as the sole means of detecting cervical cancer. Both false-positive and false-negative reports do occur. LAB L7400.2800 . Normal HPV RFLX Comment Result Comment: The HPV DNA reflex criteria were not met with this specimen result therefore, no HPV testing was performed. Performed at: - [facility] [id number] Cream Dumper: Brigida Loredo MD, Phone: [phone] Performed By: #### L7400.0353 #### [facility] (refer to report for specific site) refer to report for address and phone number HCG TITER QUANT., Collected: 04/10/2018 Status: F Source: [place] SERUM 4:37 PM [facility] REPOSITORY TYPE CODE TESTS RESULT OUT OF RANGE REFERENCE UNITS LAB L700.8000 <9 non-preg mIU/mL High HCG 887 QUANT. Performed By: #### L700.8000 #### [facility] [address] 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 [place] [address] OFFICE VISIT Date of Service: 04/01/18 MR#: [id number] Acct: [id number] Name: TOBIAS BAEZA Rep #: [id number] : 1990 Provider: Justine Sanchez MD Age/Sex: 27/F [place] [facility]: Signed Intake Vital Signs04/01/18 Body Mass Index (BMI) 28.3 04/01/18 Height 5 ft 4 in Intake Visit Reasons: 3 WEEK MEDICATION FOLLOW UP Chief Complaint: celexa follow up Forensic Examiner Required: No Is patient in pain?: No Allergies No Known Allergies Allergy (Verified 04/01/18 14:44) Medications citalopram 40 mg tablet 40 mg PO DAILY #30 tab 04/01/18 [Rx Confirmed 04/01/18] trazodone 100 mg tablet 50 mg PO QHS PRN #30 tab 04/01/18 [Rx Confirmed 04/01/18] Is last menstrual period known: No Post menopausal: No Patient : No : No PFSH Family History Father No known health problems Mother No known health problems Social History household members: family housing: apartment current occupational status: unemployed pets and animals: No Smoking Status: Light Smoker (<10/day) second hand exposure: Yes substance use type: does not use do you feel safe at home: Yes additional social history: Sukhwinder HPI 3 WEEK MEDICATION FOLLOW UP : Details: TOBIAS BAEZA is a 27 year old who presents for 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 She has been doing better on the celexa but is still struggling with anxiety and feeling like she needs to drink alcohol several days a week to cope wit hher anxiety and loss. she has a supportive partner but there is a signficaint strain on their relationship with evyerthing going on. she is also having rouble sleeping, denies any SI or HI and is wanting to conceive again. Pregancy History 2 Elective abortions Hx Para 1 Spontaneous abortions 1 Past Pregnancies Del. DateName GA/Weeks Outcome Route Bth WeighInfant GeLabor LgtAnesthesiDel LocatProvider FOB t n h a n Delivery Date: 12/01/17 On 04/01/18 @ 14:45 Zandra Alvarado [place], Delivery Date: 04/16/04 On 04/22/17 @ 10:33 Moriah Montgomery SAB ROS ENT ENT: Denies dry mouth GI GI: Reports as per HPI; denies vomiting, nausea, abdominal pain or constipation : Reports as per HPI; denies difficulty urinating, blood in urine, pelvic pain, urinary frequency, urinary incontinence, urinary hesitancy, urinary urgency, vaginal discharge, vaginal dryness, vaginal odor, vaginal itching, other or painful urination Exam Const General: cooperative, healthy appearing, comfortable, no acute distress, well developed Nutritional Appearance: average body habitus Orientation: alert HENMT Head: normal to inspection, normocephalic Ears: hearing grossly normal bilaterally, external ears normal Nose: external nose normal, nares normal Face and sinus: normal facial exam Neck Neck: normal visual inspection, trachea midline, no lymphadenopathy Thyroid: thyroid normal Resp Effort AND Inspection: normal respiratory effort Musc Other: gross motor intact no deficits, full bilateral strength Skin General: no rashes or lesions noted Neuro Motor: muscle tone normal throughout Assessment AND Plan Problems 1. depression O99.345; F53.0 celexa, trazodone, counseling Plan increased celexa and added trazodone, strongly encouraged individual and family counseling Medications New: Changed: Coding Level of Care Code Off vis,est,level 4 Diagnoses depression O99.345; F53.0 04/04/18 0357 <Electronically signed by Justine Sanchez MD> Date Justine Sanchez MD Cosigner Signature: Date (if applicable) CC: CBC W/ AUTO DIFF Collected: 01/31/2018 Status: F Source: [facility] 2:44 PM [facility] REPOSITORY TYPE CODE TESTS RESULT OUT OF RANGE REFERENCE UNITS LAB [id number](L 3.6-11.0 E3/mcL OINC) High WBC 16.0 LAB [id number](L 3.90-5.40 E6/mcL OINC) Normal RBC 4.80 LAB [id number](L 12.0-16.0 G/DL OINC) Normal Hgb 14.7 LAB [id number](L 36.0-48.0 % OINC) Normal Hct 43.5 LAB [id number](L 11.5-14.5 % OINC) Normal RDW 13.5 LAB [id number](L 27.0-31.0 pg OINC) Normal MCH 30.6 LAB [id number](L 33.0-37.0 G/DL OINC) Normal MCHC 33.8 LAB [id number](L 78.0-100.0 fL OINC) Normal MCV 90.6 LAB [id number](L 7.4-11.0 fL OINC) Normal MPV 8.6 LAB [id number](L 130-400 E3/mcL OINC) Normal Platelet 335 Performed By: #### [id number] #### [place] [address] AUTO DIFF Collected: 01/31/2018 Status: F Source: [facility] 2:44 PM [facility] REPOSITORY Order Comment: Order Added by Discern Expert. TYPE CODE TESTS RESULT OUT OF RANGE REFERENCE UNITS LAB [id number](L 37.0-75.0 % OINC) Normal Neutro Auto 74.2 LAB [id number](L 20.0-55.0 % OINC) Low Lymph Auto 16.4 LAB 85137645(L 0.0-10.0 % OINC) Normal [place] Auto 5.6 LAB 99282362(L 0.0-11.0 % OINC) Normal Eos Auto 3.2 LAB [id number](L 0.0-2.0 % OINC) Normal Basophil Auto 0.6 LAB [id number](L 1.4-6.5 E3/mcL OINC) High Neutro 11.9 Absolute LAB 17522041(L 1.2-3.4 E3/mcL OINC) Normal Lymph Absolute 2.6 LAB 47500628(L 0.0-0.7 E3/mcL OINC) High [place] Absolute 0.9 LAB [id number](L 0.0-0.7 E3/mcL OINC) Normal Eos Absolute 0.5 LAB [id number](L 0.0-0.2 E3/mcL OINC) Normal Basophil 0.1 Absolute Performed By: #### [id number] #### BETY [facility] [place] [address] CMP Collected: 01/31/2018 Status: C Source: [place] 2:44 PM [facility] REPOSITORY TYPE CODE TESTS RESULT OUT OF RANGE REFERENCE UNITS LAB [id number](L 70-99 mg/dL OINC) Glucose Normal Lvl 90 LAB 10846852(L 6-23 mg/dL OINC) BUN Normal 14 LAB 7810301(LO 0.6-1.3 mg/dL INC) Normal Creatinine 0.8 LAB 10704148(L 8.6-10.3 mg/dL OINC) Calcium Normal Lvl 9.3 LAB [id number](L 136-145 mEq/L OINC) Sodium Normal Lvl 141 LAB 86569201(L 3.5-5.3 mEq/L OINC) Normal Potassium Lvl 4.4 LAB 76487718(L 98-107 mEq/L OINC) Chloride Normal 103 LAB [id number](L 21.0-32.0 mEq/L OINC) CO2 Normal 24.0 LAB [id number](L 33-110 Int._Unit/ OINC) High L Alk Phos 148 LAB [id number](L 0.0-1.2 mg/dL OINC) Bili Normal Total 0.9 LAB 78761350(L 3.4-5.0 G/DL OINC) Albumin Normal Lvl 4.5 LAB 69093864(L 6.4-8.2 gm/dL OINC) Total Normal Protein 7.4 LAB [id number](L 7-45 Int._Unit/ OINC) L ALT Normal 33 LAB [id number](L 9-39 Int._Unit/ OINC) L AST Normal 34 LAB 69309927(L 5.4-30.0 ratio OINC) Normal BUN/Creat Ratio 17.5 LAB [id number](L 2.0-4.0 G/DL OINC) Globulin Normal 3.0 LAB [id number](L 1.1-1.9 ratio OINC) A/G Normal Ratio 1.6 LAB [id number](L 10-20 mEq/L OINC) AGAP Normal 18 Performed By: #### [id number] #### BETY [employer] [address] [place] [address] EGFR Collected: 01/31/2018 Status: F Source: [place] 2:44 PM [facility] REPOSITORY Order Comment: Order added by Discern Expert. TYPE CODE TESTS RESULT OUT OF RANGE REFERENCE UNITS LAB [id number](LO mL/min/1.73 INC) m2 Normal eGFR >60 LAB 78275817(LO mL/min/1.73 INC) m2 Normal eGFR AA >60 Performed By: #### [id number] #### BETY [employer] [address] [place] [address] [employer] OFFICE VISIT Observed: 01/25/2018 Status: F Source: [place] REPORT 6:24 AM [facility] REPOSITORY [facility] [place] [address] [place] [address] OFFICE VISIT Date of Service: 01/23/18 MR#: [id number] Acct: [id number] Name: TOBIAS BAEZA Sukh Rep #: [id number] : 1990 Provider: Justine Sanchez MD Age/Sex: 27/F [place] [facility] [place]: Signed Intake Vital Signs01/23/18 Height 5 ft 4 in 01/23/18 Blood Pressure 126/78 H Intake Visit Reasons: 6 WEEK PP Chief Complaint: 6w post Forensic Examiner Required: No Is patient in pain?: No Allergies No Known Allergies Allergy (Verified 01/23/18 13:48) Medications citalopram 20 mg tablet 20 mg PO DAILY #30 tab 01/23/18 [Rx Confirmed 01/23/18] vitamin #56-iron 35 mg and 5 mg-folic acid 1 mg-dha capsule 1 cap PO QHS #30 cap 01/23/18 [Rx] : Yes PFSH Family History Father No known health problems Mother No known health problems Social History household members: family housing: apartment current occupational status: unemployed pets and animals: No Smoking Status: Light Smoker (<10/day) second hand exposure: Yes substance use type: does not use do you feel safe at home: Yes Pregancy History 2 Elective abortions Hx Para 0 Spontaneous abortions 1 Past Pregnancies Del. DatName GA/WeeksOutcome Route [facility] Miguel Moseley LgAnesthesDel LocaProviderFOB e ht en th ia tn 04/16/04 12/01/17[place] 38 live birNSVD Male [facility] th - ful l term Delivery Date: 12/01/17 On 12/03/17 @ 09:43 Moriah Montgomery [place] Delivery Date: 04/16/04 On 04/22/17 @ 10:33 Moriah Montgomery SAB Depression Screen PHQ-2/9 PHQ-2 Over the last 2 weeks, how often have you been bothered by any of the following problems? 1. Little interest or pleasure in doing things: nearly every day 2. Feeling down, depressed, or hopeless: nearly every day Total score: 6 If score is 2 or greater, continue Source: Developed by Drs. Fabien Chacon, Elena Lilly, Chris Zheng and colleagues, with an educational fern from [employer]. Scoring: Total Score Depression Severity Action 1-4 Minimal depression No action needed 5-9 Mild depression Repeat PHQ-9 at follow up 10-14 Moderate depression Make tx plan,consider counseling, fup, prescription Post HPI 6 WEEK PP: Details: TOBIAS BAEZA is a 27 year old who presents for her post visit. she is having signficiant depression symptoms, no SI HI but has anhedonia, loss of interest or motivation, and a lack of connection and bonding. Infant Feeding: Bottle Menses resumed: No [place] since delivery: Yes Emotional Support: Yes ROS Const Reports system reviewed and no additional complaints, except as docu GI Reports system reviewed and no additional complaints, except as docu, Denies bloating, Denies nausea, Denies vomiting, Denies constipation Reports system reviewed and no additional complaints, except as docu, Denies abnormal vaginal bleeding, Denies pelvic pain, Denies sexual problems, Denies urinary urgency, Denies vaginal discharge, Denies urinary hesitancy, Denies urinary incontinence Skin/Breast Reports system reviewed and no additional complaints, except as docu, Reports as per HPI Psych Reports as per HPI Exam Const General: cooperative, healthy appearing, comfortable, no acute distress HENMT Head: normal to inspection Neck Neck: normal visual inspection, no lymphadenopathy Thyroid: thyroid normal Chest Breast inspection: normal inspection of the breasts, normal inspection of the axillae Breast palpation: normal palpation of the breasts, normal palpation of the axillae Resp Effort AND Inspection: normal respiratory effort GI Inspection: normal to inspection Palpation: soft, no hepatosplenomegaly, nontender General: bladder normal to palpation External Female Exam: normal external appearance, normal appearance of the urethra Urethra: normal appearance of the urethra Speculum Exam - Vagina: normal appearance of the vagina, normal vaginal discharge Speculum Exam - Cervix: normal appearance of the cervix Bimanual Exam- Vagina AND Uterus: bladder normal to palpation, normal bimanual exam, uterine shape normal, uterine size normal, uterus non-tender Bimanual Exam- Adnexa, other: normal adnexae, pelvic support normal Pelvic Support: normal Skin General: no rashes or lesions noted Assessment AND Plan Problems 1. Mild depression F53.0 celexa, counseling Plan Cervical cancer screening: pap Contraceptive plans: condoms Complications: ppd- fu in 4-6 weeks Follow up for annual exams or sooner if indicated. Orders Orders: Medications New: Coding Level of Care Code Off vis,est,level 4 Diagnoses Mild depression F53.0 01/25/18 0624 <Electronically signed by Justine Sanchez MD> Date Justine Sanchez MD Cosigner Signature: Date (if applicable) CC: DISCHARGE INSTRUCTION Observed: 12/05/2017 Status: F Source: [place] 10:43 AM [facility] REPOSITORY [facility] Medical Records Department [address] [place] [address] Instructions for Home/Discharge Instructions 12/05/17 1042 MR#: [id number] Acct: [id number] Name: TOBIAS BAEZA Rep #: [id number] : 1990 27 From: Justine Sanchez MD PCP: Care Physician, No Primary Status: ADM IN Discharge Diet: No Restrictions Discharge Activity: Return to Normal Activity, May not drive while taking narcotic pain medications., May Shower May resume sexual activity in: 4-6 weeks Call your doctor if your incision/area has: Continuous Slow Oozing, Sudden Increased Bleeding, Increased Pain/ Swelling, Increased Redness, Foul Smelling Discharge Additional Instructions: If you experience any of the following, contact your healthcare provider. * Bleeding that soaks a pad every hour for 2 hours * Fever 100.4 or higher * Unrelieved incision or abdominal pain * Swelling, redness, discharge or bleeding from your incision or episiotomy site * Your incision begins to separate * Problems urinating (including inability to urinate or burning while urinating). * Visual changes * Severe headache * Flu-like symptoms * Pain or redness in one of both of your breasts * Pain, warmth, tenderness or swelling in your legs, especially the calf area * Frequent nausea and vomiting * Symptoms of depression or anxiety If you experience any of the following, call 911 or go to the nearest Emergency Room. * Chest pain * Problems breathing * Seizure activity * Partial or complete paralysis of a body part, slurred speech, weakness or drooping of the face, or a sudden inability to walk or hold your balance Allergies/Adverse Reactions: Allergies No Known Allergies Allergy (Verified 12/01/17 16:15) Medications to take at Discharge Concord-3/Dha/Epa/Fish Oil [Fish Oil 1,000 mg Softgel] 1 each PO DAILY 12/01/17 [id number] fum 28 mg-folic acid 800 mcg-dha 200 mg oral pack See Label Instructions PO .COMPLEX 12/01/17 Please Follow Up With: Justine Sanchez MD - [phone] When: Call to make an appointment with your doctor in 6 weeks. If you had elevated Blood pressure or 4th degree laceration you will need to be seen in 2 weeks. Primary Care Physician: Care Physician,No Primary [Primary Care Provider] - Test Results: Test results from this visit will be discussed in further detail at your follow-up appointment, if applicable. 12/05/17 1043 <Electronically signed by Justine Sanchez MD> Date Justine Sanchez MD CC: No Primary Care Physician OPERATIVE REPORT Observed: 12/05/2017 Status: F Source: [place] 10:41 AM [facility] REPOSITORY [facility] Medical Records Department [address] [place] [address] Operative Report 12/05/17 1040 MR#: [id number] Acct: [id number] Name: TOBIAS BAEZA Rep #: [id number] : 1990 27 From: Justine Sanchez MD PCP: Care Physician, No Primary Status: ADM IN Y [facility] - Problem List (1) Oligohydramnios Status: Acute (2) Choroid plexus cyst of fetus Status: Acute Qualifiers: Comment: normal NIPT screening, no further fu indicated (3) Tobacco use complicating Status: Acute Qualifiers: Comment: encouraged cessation (4) Supervision of high risk in first trimester Status: Acute Comment: PRR MACHO 12/11/17 boyfriend Sukhwinder Leyva Vaginal Delivery Maternal Presentation: Medically Indicated Induction iol oligo Amniotic Membrane Rupture Type: Artificial Amniotic Fluid Description: Clear Final MACHO: 12/11/17 Gestational age: 39 Weeks and 1 Days Date of Procedure: 12/03/17 Pre-Operative Diagnosis: iol oligo Post-Operative Diagnosis: same Surgery/ Procedure Performed: Spontaneous Vaginal Delivery Type of Anesthesia: Epidural Description of Procedure: Patient began pushing and delivered the head in the JADA presentation. The head was delivered atraumatically and a loose nuchal cord 1 was identified and easily reduced over the 's head. The anterior and posterior shoulders delivered without complication followed by the rest of the and the was placed on the maternal abdomen. Delayed cord clamping was employed for approximately 60 seconds. Cord was clamped and cut and gentle traction was applied to the cord and the placenta delivered spontaneously immediately following it was noted to be intact with three-vessel cord. The perineum and vagina were inspected and noted to have a 1st degree laceration repaired in the usual fashion with 3-0 vicryl rapide. EBL was 200 cc. Patient and infant tolerated delivery well. 12/05/17 1041 <Electronically signed by Justine Sanchez MD> Date Justine Sanchez MD CC: No Primary Care Physician; Justine Sanchez MD Signed [employer]PER[employer] OFFICE VISIT Observed: 12/02/2017 Status: F Source: [place] REPORT 2:00 AM [facility] [address] [place] [address] OFFICE VISIT Date of Service: 12/01/17 MR#: [id number] Acct: [id number] Name: TOBIAS BAEZA Rep #: [id number] : 1990 Provider: Justine Sanchez MD Age/Sex: 27/F [place] [facility] [place]: Signed Intake Vital Signs12/01/17 Blood Pressure 114/70 12/01/17 Height 5 ft 4 in 12/01/17 Weight: 164 lb 12/01/17 Body Mass Index (BMI) 28.1 Intake Visit Reasons: est ob 38 weeks Forensic Examiner Required: No Accompanied by: Significant Other Is patient in pain?: No Allergies No Known Allergies Allergy (Verified 12/01/17 16:15) Medications Concord-3/Dha/Epa/Fish Oil [Fish Oil 1,000 mg Softgel] 1 ea PO DAILY 12/01/17 [History Confirmed 12/01/17] [id number] fum 28 mg-folic acid 800 mcg-dha 200 mg oral pack See Label Instructions PO .COMPLEX 12/01/17 [History Confirmed 12/01/17] Last Menstral Period: 03/06/17 Zika: Zika virus screening: Negative : No PFSH PFSH Family History Father No known health problems Mother No known health problems Social History household members: family housing: apartment current occupational status: unemployed pets and animals: No Smoking Status: Light Smoker (<10/day) second hand exposure: Yes substance use type: does not use do you feel safe at home: Yes Pregancy History 2 Elective abortions Hx Para Spontaneous abortions 1 Past Pregnancies Del. DateName GA/Weeks Outcome Route Bth WeighInfant GeLabor LgtAnesthesiDel LocatProvider FOB t n h a n 04/16/04 Delivery Date: 04/16/04 On 04/22/17 @ 10:33 UlisesMoriah SAB HPI est ob 38 weeks: Details: TOBIAS BAEZA is a 27 year old who presents for routine OB visit. OB Visit MACHO Calculator Estimated Delivery Date 12/11/17 Based on LMP (certain) 03/06/17 Current WG 38w 5d Number 1 Expected Delivery Route/Plan Specific Issue/Plans flu vaccine declined minichart given: tdap vaccine: given 09/18/17 rhogam: na LARC form signed: declined labor support person: Sukhwinder pain management: epidural cut cord/dad catch: yes : yes PP control planned: [] special requests: [] Initial Weight: 135 lb Date Weight BP Urine PrFHR FuHt Pres MoCTX DilationFetal StVisit NoProviderComments E ot v te GA G Effac lucose ed Visit Notes Visit Date: 12/01/17 no vb lof good fm n oregular ctx Justine Sanchez MD on 12/01/17 Visit Date: 11/24/17 Feels well. No VB, LOF. Good FM. MOON Smith on 11/24/17 Visit Date: 11/17/17 no vb lof good fm n oregular ctx Justine Sanchez MD on 11/19/17 Visit Date: 10/31/17 no vb lof good fm no regular ctx Justine Sanchez MD on 10/31/17 Visit Date: 10/17/17 mno vb lof good fm irreular ctx Justine Sanchez MD on 10/17/17 Visit Date: 10/03/17 no vb lof good fm no regular ctx Justine Sanchez MD on 10/03/17 Visit Date: 08/28/17 Doing well. No VB, LOF. Good FM MOON Smith on 08/28/17 Visit Date: 08/01/17 no vb cramping Justine Sanchez MD on 08/01/17 Visit Date: 07/04/17 no vb cramping second draw today for nt screening Justine Sanchez MD on 07/04/17 no vb cramping Justine Sanchez MD on 07/04/17 Visit Date: 06/06/17 Doing well. Nausea improved. Had 1st sequ screen done MOON Smith on 06/06/17 ACOG First Trimester First Trimester: Desire for , Alcohol, Tobacco Cessation, Illicit/Recreational Drug/Substance Use, Intimate Partner Violence, Barriers to care, Unstable Housing, Communication Barriers, Environmental/Work Hazards, Anticipated Course of Care, Toxoplasmosis Precations, Use of Any medications, Sexual activity, Exercise, Dental Care, Sauna/Hot tub use, Seat Belt use, Childbirth classes/Hospital facilities, , Travel, Indications for US and Screening for Aneuploidy Diagnostics Diagnostics Labs Blood Type O POSITIVE 12/01/17 Antibody Screen NEGATIVE 12/01/17 Hct 37.1 % (37-47) 12/01/17 Hgb 12.2 g/dl (12.0-15.0) 12/01/17 Glucose 1 Hr 50 gm 88 mg/dL (70-140) 09/18/17 Group B Strep DNA Negative (Negative) 11/17/17 Miscellaneous Test 07/22/17 Details: HIV: Urine Culture: Sequential Screen: NIPT Screen: ROS Const Denies fever(s) GI Denies abdominal pain, Reports as per HPI Denies vaginal discharge, Denies abnormal vaginal bleeding, Reports as per HPI Exam Const General: healthy appearing, comfortable, no acute distress GI Inspection: normal to inspection Palpation: soft, nontender Results [id number] Office Urine Glucose Negative Last Edit by Angelique Lind on 12/01/17 14:24 Office Urine Protein Trace Last Edit by Angelique Lind on 12/01/17 14:24 Assessment AND Plan Problems 1. complicated by tobacco use in third trimester O99.333 encouraged cessation 2. Choroid plexus cyst of fetus, single or unspecified fetus O35.0XX0 normal NIPT screening, no further fu indicated 3. Supervision of high risk in first trimester O09.91 PRR MACHO 12/11/17 boyfriend Sukhwinder KOSTAS Lee fundal height low- bedside dudley 3.8 cm recommend IOL- to l and d Orders Orders: Coding Level of Care Code OB Routine Diagnoses complicated by tobacco use in third trimester O99.333 Trimester: third trimester Choroid plexus cyst of fetus, single or unspecified fetus O35.0XX0 Fetus number: single or unspecified fetus Supervision of high risk in first trimester O09.91 12/02/17 0200 <Electronically signed by Justine Sanchez MD> Date Justine Sanchez MD Cosigner Signature: Date (if applicable) CC: HISTORY AND PHYSICAL Observed: 12/02/2017 Status: F Source: [place] EXAM 1:09 AM [facility] REPOSITORY [facility] Medical Records Department [address] [place] [address] History and Physical 12/02/17 0104 MR#: [id number] Acct: [id number] Name: TOBIAS BAEZA Sukh Rep #: [id number] : 1990 27 From: Justine Sanchez MD PCP: Care Physician, No Primary Status: ADM IN Location: [id number] - Problem List (1) Oligohydramnios Status: Acute (2) Choroid plexus cyst of fetus Status: Acute Qualifiers: Comment: normal NIPT screening, no further fu indicated (3) Tobacco use complicating Status: Acute Qualifiers: Comment: encouraged cessation (4) Supervision of high risk in first trimester Status: Acute Comment: PRR MACHO 12/11/17 boyfriend Sukhwinder KOSTAS Leyva History Date of Admission: 12/02/17 Final MACHO: 12/11/17 Gestational age: 38 Weeks and 5 Days History of this : This is a 27 year-old, at 38 weeks gestational age with oligohydramnios, an dudley of 3.8 cm in the office today. she denies any lof, vb. she admits good fm and has no regular ctx. Allergies No Known Allergies Allergy (Verified 12/01/17 16:15) Home Medications: Home Medications Concord-3/Dha/Epa/Fish Oil [Fish Oil 1,000 mg Softgel] 1 each PO DAILY 12/01/17 [id number] fum 28 mg-folic acid 800 mcg-dha 200 mg oral pack See Label Instructions PO .COMPLEX 12/01/17 Smoking Status: Light Smoker (<10/day) Alcohol: None Number of Fetus(es): 1 Heart Tracin moderate variability reactive no decels cat I tracing TOCO Analysis: irregular History Past Pregnancies: Past Pregnancies Delivery Name GA/Weeks Outcome Route WeiInfant GeLabor LenAnesthesiDelivery Provider FOB Date ght [facility] Location Labs: Mom's Labs AND Results WBC 13.1 H RBC 4.01 L Course Did the patient receive Yes care? Labs Blood Type: O Current Obstetrical History Gestational Diabetes No Incompetent Cervix No Infertility No IUGR No Macrosomia No Hypertension/Pre-eclampsia No Placenta Previa/Abruption No PTL/PROM No Uterine anomaly No Oligohydramnios No Polyhydramnios No Multiple gestation No Past Medical History Asthma No Diabetes No Hypertension No Heart disease No Mitral valve prolapse No Neurologic/Seizure disorder/ No Migraines Kidney disease No Liver disease No Varicosities No Clotting disorders/Hx of DVT No Thyroid Dysfunction No Other medical diseases No Psychiatric disorders No Major trauma No Abnormal PAP smear No Sleep apnea No Mammogram in the last 2 years Yes Social History Marital Status: SINGLE Alleged father volodymyr gomez Hx Smoking Yes Smoking Status Light Smoker (<10/day) How long have you used na substances (years)? Expected Infant Delivery Method: Spontaneous Vaginal Review of Systems Constitutional: Denies: Fever, Malaise Eyes: Denies: Blurred vision, Vision Change HEENT: Denies: Head Aches, Visual Changes Cardiovascular: Denies: Chest Pain, Palpitations Respiratory: Denies: Cough, Shortness of Breath, Wheezing Gastrointestinal: Denies: Abdominal Pain, Diarrhea, Nausea, Vomiting Genitourinary: Denies: Dysuria, Hematuria Musculoskeletal: Denies: Joint Pain, Muscle pain Skin: Denies: Lesions, Rash Neurological: Denies: Blurred vision, Focal weakness, Headaches Psychiatric: Denies: Anxiety, Depression Endocrine: Denies: Heat/ Cold Intolerance Hematologic/ Lymphatic: Denies: Easy Bruising, Easy Bleeding Physical Exam General: Alert, Cooperative, No apparent distress HEENT: Atraumatic, Normocephalic. Negative for: Thyromegaly, Lymphadenopathy Cardiovascular: Regular rate Lungs: Normal air movement Abdomen: Soft, Non Tender, Gravid Neurological: Deep Tendon Reflexes 2+/4 and Symmetrical, Neuro grossly intact. Negative for: Clonus C[employer]S IMPORT SPECIALIST: Normal external genitalia. Negative for: Vulvar lesions Estimated gestational size: Appropriate for gestational size Presentation: Cephalic Cervix Dilation (cm): 1 Station: -2 Effacement (%): 50 Assessment/Plan All Active Problems (Last Reviewed 12/01/17 @ 14:45 by Angeilque Lind) Oligohydramnios (Acute) Uterine size date discrepancy (Acute) Choroid plexus cyst of fetus (Acute) Tobacco use complicating (Acute) Supervision of high risk in first trimester (Acute) screening encounter (Resolved) This is a 27 year-old, at 38 weeks gestational age presents IOL oligo 1. oligohydramnios - 3.8 cm DUDLEY in office today Patient presents IOL cytotec then pitocin, plan expectant management for . AROM when able Pain management: plans epidural. GBS negative. Management of any complications: none I have reviewed the [facility] and made any clinically relevant updates. 12/02/17 0109 <Electronically signed by Justine Sanchez MD> Date Justine Sanchez MD Cosigner Signature: Date (if applicable) CC: No Primary Care Physician; Justine Sanchez MD Signed CBC-COMPLETE BLOOD CNT Collected: 12/01/2017 Status: F Source: [place] NO DIFF 4:56 PM [facility] REPOSITORY TYPE CODE TESTS RESULT OUT OF RANGE REFERENCE UNITS LAB L100.1000 4.4-11.0 K/mm3 High WBC 13.1 LAB L100.1200 4.2-5.4 M/mm3 Low RBC 4.01 LAB L100.1300 12.0-15.0 g/dl Normal HGB 12.2 LAB L100.1400 37-47 % Normal HCT 37.1 LAB L100.1500 81-99 fL Normal MCV 92.5 LAB L100.1600 27.0-32.0 pg Normal MCH 30.4 LAB L100.1700 32-36 g/gl Normal MCHC 32.9 LAB L100.1810 11.6-14.6 % Normal RDW CV 12.8 LAB L100.1820 35.1-43.9 fl Normal RDW SD 43.1 LAB L100.1900 150-450 K/mm3 Normal PLT 265 LAB L100.2000 6.2-12.0 fl Normal MPV 10.9 Performed By: #### L100.0500 #### [facility] [address] [place], [address] TYPE AND SCREEN Collected: 12/01/2017 Status: F Source: [place] 4:56 PM [facility] REPOSITORY Order Comment: Reason for Type AND Screen/Red Cells: ROUTINE TYPE CODE TESTS RESULT OUT OF RANGE REFERENCE UNITS LAB B10.0800 O Normal BLOOD TYPE GEL POSITIVE LAB B100.4000 Normal Antibody NEGATIVE Screen Performed By: #### B101.7450 #### [facility] [address] [place], [address] [employer]PER[employer] OFFICE VISIT Observed: 11/24/2017 Status: F Source: [place] REPORT 3:40 PM [facility] REPOSITORY [facility] [address] [place] [address] OFFICE VISIT Date of Service: 11/24/17 MR#: [id number] Acct: [id number] Name: TOBIAS BAEZA Rep #: [id number] : 1990 Provider: DANTE Jean-Baptiste Age/Sex: 27/F [place] [facility] Signed Intake Vital Signs11/24/17 Height 5 ft 4 in 11/24/17 Weight: 163 lb 6 oz 11/24/17 Body Mass Index (BMI) 28.0 11/24/17 Blood Pressure 129/79 Intake Visit Reasons: 37 WEEK OB Forensic Examiner Required: No Accompanied by: mother Is patient in pain?: No Allergies No Known Allergies Allergy (Verified 11/24/17 15:22) Medications [id number] fum 28 mg-folic acid 800 mcg-dha 200 mg oral pack See Label Instructions PO .COMPLEX #120 ea 04/22/17 [Rx Confirmed 11/24/17] Last Menstral Period: 03/06/17 Zika: Zika virus screening: Negative : No PFSH PFSH Family History Father No known health problems Mother No known health problems Social History household members: family housing: apartment current occupational status: unemployed pets and animals: No Smoking Status: Current some day smoker second hand exposure: Yes substance use type: does not use do you feel safe at home: Yes Pregancy History 1 Elective abortions Hx Para Spontaneous abortions 1 Past Pregnancies Del. DateName GA/Weeks Outcome Route Bth WeighInfant GeLabor LgtAnesthesiDel LocatProvider FOB t n h a n 04/16/04 Delivery Date: 04/16/04 On 04/22/17 @ 10:33 Moriah Montgomery SAB HPI 37 WEEK OB: Details: TOBIAS BAEZA is a 27 year old who presents for routine OB visit. OB Visit MACHO Calculator Estimated Delivery Date 12/11/17 Based on LMP (certain) 03/06/17 Current WG 37w 4d Number 1 Expected Delivery Route/Plan Specific Issue/Plans flu vaccine declined minichart given: tdap vaccine: given 09/18/17 rhogam: na LARC form signed: declined labor support person: Sukhwinder pain management: epidural cut cord/dad catch: yes : yes PP control planned: [] special requests: [] Initial Weight: 135 lb Date Weight BP Urine PFHR FuHt Pres MCTX DilatioFetal SVisit NProvideComment rot ov n t ote r s EGA Ef Gluco faced se 06/06/1134 lb 121/71 160 Absent Doing wMH 8 4 oz (+ ell. Na 134 oz) usea im w 1d proved. Had 1 st sequ screen done Visit Notes Visit Date: 11/24/17 Feels well. No VB, LOF. Good FM. Page Jean-Baptiste NP-C on 11/24/17 Visit Date: 11/17/17 no vb lof good fm n oregular ctx Justine Sanchez MD on 11/19/17 Visit Date: 10/31/17 no vb lof good fm no regular ctx Justine Sanchez MD on 10/31/17 Visit Date: 10/17/17 mno vb lof good fm irreular ctx Justine Sanchez MD on 10/17/17 Visit Date: 10/03/17 no vb lof good fm no regular ctx Justine Sanchez MD on 10/03/17 Visit Date: 08/28/17 Doing well. No VB, LOF. Good FM MOON Smith on 08/28/17 Visit Date: 08/01/17 no vb cramping Justine Sanchez MD on 08/01/17 Visit Date: 07/04/17 no vb cramping second draw today for nt screening Justine Sanchez MD on 07/04/17 no vb cramping Justine Sanchez MD on 07/04/17 Visit Date: 06/06/17 Doing well. Nausea improved. Had 1st sequ screen done MOON Smith on 06/06/17 ACOG First Trimester First Trimester: Desire for , Alcohol, Tobacco Cessation, Illicit/Recreational Drug/Substance Use, Intimate Partner Violence, Barriers to care, Unstable Housing, Communication Barriers, Environmental/Work Hazards, Anticipated Course of Care, Toxoplasmosis Precations, Use of Any medications, Sexual activity, Exercise, Dental Care, Sauna/Hot tub use, Seat Belt use, Childbirth classes/Hospital facilities, , Travel, Indications for US and Screening for Aneuploidy Diagnostics Diagnostics Labs Hct 34.0 % (37-47) L 09/18/17 Hgb 11.2 g/dl (12.0-15.0) L 09/18/17 Obstetrics Ultrasound 07/18/17 Glucose 1 Hr 50 gm 88 mg/dL (70-140) 09/18/17 Group B Strep DNA Negative (Negative) 11/17/17 Miscellaneous Test 07/22/17 Details: HIV: Urine Culture: Sequential Screen: NIPT Screen: ROS Const Reports system reviewed and no additional complaints, except as docu GI Denies nausea, Denies vomiting, Denies abdominal pain Exam Const General: cooperative Nutritional Appearance: well nourished GI Palpation: soft, nontender, other (gravid) Results [id number] Office Urine Glucose Negative Last Edit by Angela Grant on 11/24/17 15:30 Office Urine Protein Negative Last Edit by Angela Grant on 11/24/17 15:30 Assessment AND Plan Problems 1. Supervision of high risk in first trimester O09.91 PRR MACHO 12/11/17 boyfriend Sukhwinder Leyva 2. complicated by tobacco use in third trimester O99.333 encouraged cessation 3. Choroid plexus cyst of fetus, single or unspecified fetus O35.0XX0 normal NIPT screening, no further fu indicated 4. 37 weeks gestation of Z3A.37 Plan Orders placed: none Reviewed of labor precautions, movement/kick counts ACOG trimester education reviewed and updated See problem list details for updated plan of care Gestational age appropriate handout given RTO: 1 week Orders Orders: Coding Level of Care Code Off vis,est,level 3 Diagnoses Supervision of high risk in first trimester O09. complicated by tobacco use in third trimester O99.333 Trimester: third trimester Choroid plexus cyst of fetus, single or unspecified fetus O35.0XX0 Fetus number: single or unspecified fetus 37 weeks gestation of Z3A.37 11/24/17 1540 <Electronically signed by Page MUSTAFA> Date Page MUSTAFA Cosigner Signature: Date (if applicable) CC: [employer] SUPERVISOR OFFICE VISIT Observed: 11/19/2017 Status: F Source: [place] REPORT 3:00 AM [facility] [address] [place] [address] OFFICE VISIT Date of Service: 11/17/17 MR#: [id number] Acct: [id number] Name: TOBIAS BAEZA Rep #: [id number] : 1990 Provider: Justine Sanchez MD Age/Sex: 27/F [place] [facility] [place]: Signed Intake Vital Signs11/17/17 Height 5 ft 4 in 11/17/17 Weight: 163 lb 4 oz 11/17/17 Body Mass Index (BMI) 28.0 11/17/17 Blood Pressure 138/78 Intake Visit Reasons: 36 WEEK OB Forensic Examiner Required: No Accompanied by: boyfriend Is patient in pain?: No Allergies No Known Allergies Allergy (Verified 11/17/17 14:48) Medications [id number] fum 28 mg-folic acid 800 mcg-dha 200 mg oral pack See Label Instructions PO .COMPLEX #120 ea 04/22/17 [Rx Confirmed 11/17/17] Last Menstral Period: 03/06/17 Zika: Zika virus screening: Negative : No PFSH PFSH Family History Father No known health problems Mother No known health problems Social History household members: family housing: apartment current occupational status: unemployed pets and animals: No Smoking Status: Current some day smoker second hand exposure: Yes substance use type: does not use do you feel safe at home: Yes Pregancy History 1 Elective abortions Hx Para Spontaneous abortions 1 Past Pregnancies Del. DateName GA/Weeks Outcome Route Bth WeighInfant GeLabor LgtAnesthesiDel LocatProvider FOB t n h a n 04/16/04 Delivery Date: 04/16/04 On 04/22/17 @ 10:33 Moriah Montgomery SAB HPI 36 WEEK OB: Details: TOBIAS BAEZA is a 27 year old who presents for routine OB visit. OB Visit MACHO Calculator Estimated Delivery Date 12/11/17 Based on LMP (certain) 03/06/17 Current WG 36w 6d Number 1 Expected Delivery Route/Plan Specific Issue/Plans flu vaccine declined minichart given: tdap vaccine: given 09/18/17 rhogam: na LARC form signed: declined labor support person: Sukhwinder pain management: epidural cut cord/dad catch: yes : yes PP control planned: [] special requests: [] Initial Weight: 135 lb Date Weight BP Urine PrFHR FuHt Pres MoCTX DilationFetal StVisit NoProviderComments E ot v te GA G Effac lucose ed Visit Notes Visit Date: 11/17/17 no vb lof good fm n oregular ctx Justine Sanchez MD on 11/19/17 Visit Date: 10/31/17 no vb lof good fm no regular ctx Justine Sanchez MD on 10/31/17 Visit Date: 10/17/17 mno vb lof good fm irreular ctx Justine Sanchez MD on 10/17/17 Visit Date: 10/03/17 no vb lof good fm no regular ctx Justine Sanchez MD on 10/03/17 Visit Date: 08/28/17 Doing well. No VB, LOF. Good FM MOON Smith on 08/28/17 Visit Date: 08/01/17 no vb cramping Justine Sanchez MD on 08/01/17 Visit Date: 07/04/17 no vb cramping second draw today for nt screening Justine Sanchez MD on 07/04/17 no vb cramping Justine Sanchez MD on 07/04/17 Visit Date: 06/06/17 Doing well. Nausea improved. Had 1st sequ screen done MOON Smith on 06/06/17 ACOG First Trimester First Trimester: Desire for , Alcohol, Tobacco Cessation, Illicit/Recreational Drug/Substance Use, Intimate Partner Violence, Barriers to care, Unstable Housing, Communication Barriers, Environmental/Work Hazards, Anticipated Course of Care, Toxoplasmosis Precations, Use of Any medications, Sexual activity, Exercise, Dental Care, Sauna/Hot tub use, Seat Belt use, Childbirth classes/Hospital facilities, , Travel, Indications for US and Screening for Aneuploidy Diagnostics Diagnostics Labs Hct 34.0 % (37-47) L 09/18/17 Hgb 11.2 g/dl (12.0-15.0) L 09/18/17 Obstetrics Ultrasound 07/18/17 Glucose 1 Hr 50 gm 88 mg/dL (70-140) 09/18/17 Group B Strep DNA Negative (Negative) 11/17/17 Miscellaneous Test 07/22/17 Details: HIV: Urine Culture: Sequential Screen: NIPT Screen: ROS Const Denies fever(s) GI Denies abdominal pain, Reports as per HPI Denies vaginal discharge, Denies abnormal vaginal bleeding, Reports as per HPI Exam Const General: healthy appearing, comfortable, no acute distress GI Inspection: normal to inspection Palpation: soft, nontender Results [id number] Office Urine Glucose Negative Last Edit by Angela Grant on 11/17/17 14:54 Office Urine Protein Negative Last Edit by Angela Grant on 11/17/17 14:54 Assessment AND Plan Problems 1. Choroid plexus cyst of fetus, single or unspecified fetus O35.0XX0 normal NIPT screening, no further fu indicated 2. complicated by tobacco use in third trimester O99.333 encouraged cessation 3. Supervision of high risk in first trimester O09.91 PRR MACHO 12/11/17 boyfriend Sukhwinder Levya Plan movement and labor precautions reviewed. ACOG trimester education reviewed and updated. see problem list details for updated plan management information and see below for orders placed at this visit. [place] appropriate handout given. Orders Orders: Coding Level of Care Code OB Routine Diagnoses Choroid plexus cyst of fetus, single or unspecified fetus O35.0XX0 Fetus number: single or unspecified fetus complicated by tobacco use in third trimester O99.333 Trimester: third trimester Supervision of high risk in first trimester O09.91 11/19/17 0300 <Electronically signed by Justine Sanchez MD> Date Justine Sanchez MD Cosigner Signature: Date (if applicable) CC: GROUP B STREP DNA Collected: 11/17/2017 Status: F Source: [place] BY PCR 7:26 PM [facility] REPOSITORY TYPE CODE TESTS RESULT OUT OF RANGE REFERENCE UNITS LAB L8200.0100 Negative Normal GBS TEST Negative RESULT Performed By: #### L8200.0000 #### [facility] [address] [place], [address] Observed: 11/17/2017 Status: F Source: [place] CULTURE, GROUP B 12:00 AM [facility] STREPTOCOCCUS REPOSITORY SCOOBY Culture Group B Beta Streptococcus is not isolated. Performed By: #### M100.1800 #### [place] [facility] [address], [address] [employer] SUPERVIS[employer] OFFICE VISIT Observed: 10/31/2017 Status: F Source: [place] REPORT 3:54 PM [facility] REPOSITORY [facility] [address] [place] [address] OFFICE VISIT Date of Service: 10/31/17 MR#: [id number] Acct: [id number] Name: KODITOBIAS DURAN Rep #: [id number] : 1990 Provider: Justine Sanchez MD Age/Sex: 26/F [place] [facility] [place] Signed Intake Vital Signs10/31/17 Height 5 ft 4 in 10/31/17 Weight: 160 lb 6 oz 10/31/17 Body Mass Index (BMI) 27.5 10/31/17 Blood Pressure 108/66 Intake Visit Reasons: 34 WEEK OB Forensic Examiner Required: No Accompanied by: Significant Other Allergies No Known Allergies Allergy (Verified 10/31/17 14:47) Medications [id number] fum 28 mg-folic acid 800 mcg-dha 200 mg oral pack See Label Instructions PO .COMPLEX #120 ea 04/22/17 [Rx Confirmed 10/17/17] Last Menstral Period: 03/06/17 Zika: Zika virus screening: Negative PFSH PFSH Family History Father No known health problems Mother No known health problems Social History household members: family housing: apartment current occupational status: unemployed pets and animals: No Smoking Status: Current some day smoker second hand exposure: Yes substance use type: does not use do you feel safe at home: Yes Pregancy History 1 Elective abortions Hx Para Spontaneous abortions 1 Past Pregnancies Del. DateName GA/Weeks Outcome Route Bth WeighInfant GeLabor LgtAnesthesiDel LocatProvider FOB t n h a n 04/16/04 Delivery Date: 04/16/04 On 04/22/17 @ 10:33 Moriah Montgomery SAB HPI 34 WEEK OB: Details: TOBIAS BAEZA is a 26 year old who presents for routine OB visit. OB Visit MACHO Calculator Estimated Delivery Date 12/11/17 Based on LMP (certain) 03/06/17 Current WG 34w 1d Number 1 Expected Delivery Route/Plan Specific Issue/Plans flu vaccine declined minichart given: tdap vaccine: given 09/18/17 rhogam: na LARC form signed: declined labor support person: Sukhwinder pain management: epidural cut cord/dad catch: yes : yes PP control planned: [] special requests: [] Initial Weight: 135 lb Date Weight BP Urine PrFHR FuHt Pres MoCTX DilationFetal StVisit NoProviderComments E ot v te GA G Effac lucose ed Visit Notes Visit Date: 10/31/17 no vb lof good fm no regular ctx Justine Sanchez MD on 10/31/17 Visit Date: 10/17/17 mno vb lof good fm irreular ctx Justine Sanchez MD on 10/17/17 Visit Date: 10/03/17 no vb lof good fm no regular ctx Justine Sanchez MD on 10/03/17 Visit Date: 08/28/17 Doing well. No VB, LOF. Good FM MOON Smith on 08/28/17 Visit Date: 08/01/17 no vb cramping Justine Sanchez MD on 08/01/17 Visit Date: 07/04/17 no vb cramping second draw today for nt screening Justine Sanchez MD on 07/04/17 no vb cramping Justine Sanchez MD on 07/04/17 Visit Date: 06/06/17 Doing well. Nausea improved. Had 1st sequ screen done MOON Smith on 06/06/17 ACOG First Trimester First Trimester: Desire for , Alcohol, Tobacco Cessation, Illicit/Recreational Drug/Substance Use, Intimate Partner Violence, Barriers to care, Unstable Housing, Communication Barriers, Environmental/Work Hazards, Anticipated Course of Care, Toxoplasmosis Precations, Use of Any medications, Sexual activity, Exercise, Dental Care, Sauna/Hot tub use, Seat Belt use, Childbirth classes/Hospital facilities, , Travel, Indications for US and Screening for Aneuploidy Diagnostics Diagnostics Labs Blood Type O POSITIVE 05/09/17 Antibody Screen NEGATIVE 05/09/17 Hct 34.0 % (37-47) L 09/18/17 Hgb 11.2 g/dl (12.0-15.0) L 09/18/17 Obstetrics Ultrasound 07/18/17 Rubella IgG Antibody 21.3 IU/mL 05/09/17 RPR NONREACTIVE (NONREACTIVE) 05/09/17 Hep Bs Antigen Negative (Negative) 05/09/17 Chlam trachomat DNA PCR Negative (Negative) 05/09/17 N.gonorrhoeae DNA (PCR) Negative (Negative) 05/09/17 Glucose 1 Hr 50 gm 88 mg/dL (70-140) 09/18/17 Miscellaneous Test 07/22/17 Details: HIV: Urine Culture: Sequential Screen: NIPT Screen: Results [id number] Office Urine Glucose Negative Last Edit by Angelique Lind on 10/31/17 14:46 Office Urine Protein Trace Last Edit by Angelique Lind on 10/31/17 14:46 Assessment AND Plan Problems 1. Supervision of high risk in first trimester O09. PRR MACHO 12/11/17 boyfriend Sukhwinder Leyva 2. complicated by tobacco use in third trimester O99.333 encouraged cessation 3. Choroid plexus cyst of fetus, single or unspecified fetus O35.0XX0 normal NIPT screening, no further fu indicated 4. 34 weeks gestation of Z3A.34 Plan Orders placed: none movement and labor precautions reviewed. ACOG trimester education reviewed and updated. see problem list details for updated plan management information. [place] appropriate handout given. Orders Orders: Coding Level of Care Code Off vis,est,level 3 Diagnoses Supervision of high risk in first trimester O09. complicated by tobacco use in third trimester O99.333 Trimester: third trimester Choroid plexus cyst of fetus, single or unspecified fetus O35.0XX0 Fetus number: single or unspecified fetus 34 weeks gestation of Z3A.34 10/31/17 1554 <Electronically signed by Justine Sanchez MD> Date Justine Sanchez MD Cosigner Signature: Date (if applicable) CC: [employer] SUPERVISOR OFFICE VISIT Observed: 10/17/2017 Status: F Source: [place] REPORT 3:33 PM [facility] [place] [address] [place] [address] OFFICE VISIT Date of Service: 10/17/17 MR#: [id number] Acct: [id number] Name: TOBIAS BAEZA Rep #: [id number] : 1990 Provider: Justine Sanchez MD Age/Sex: 26/F [place] [facility] [place]: Signed Intake Vital Signs10/17/17 Height 5 ft 4 in 10/17/17 Weight: 160 lb 4 oz 10/17/17 Body Mass Index (BMI) 27.5 10/17/17 Blood Pressure 110/60 Intake Visit Reasons: 32 WEEK OB Is patient in pain?: No Allergies No Known Allergies Allergy (Verified 10/17/17 15:00) Medications [id number] fum 28 mg-folic acid 800 mcg-dha 200 mg oral pack See Label Instructions PO .COMPLEX #120 ea 04/22/17 [Rx Confirmed 10/17/17] Last Menstral Period: 03/06/17 Zika: Zika virus screening: Negative PFSH PFSH Family History Father No known health problems Mother No known health problems Social History household members: family housing: apartment current occupational status: unemployed pets and animals: No Smoking Status: Current every day smoker tobacco type: cigarettes second hand exposure: Yes substance use type: does not use do you feel safe at home: Yes Pregancy History 1 Elective abortions Hx Para Spontaneous abortions 1 Past Pregnancies Del. DateName GA/Weeks Outcome Route Bth WeighInfant GeLabor LgtAnesthesiDel LocatProvider FOB t n h a n 04/16/04 Delivery Date: 04/16/04 On 04/22/17 @ 10:33 Moriah Montgomery SAB HPI 32 WEEK OB: Details: TOBIAS BAEZA is a 26 year old who presents for routine OB visit. OB Visit MACHO Calculator Estimated Delivery Date 12/11/17 Based on LMP (certain) 03/06/17 Current WG 32w 1d Number 1 Expected Delivery Route/Plan Specific Issue/Plans flu vaccine declined minichart given: tdap vaccine: given 09/18/17 rhogam: na LARC form signed: declined labor support person: Sukhwinder pain management: epidural cut cord/dad catch: yes : yes PP control planned: [] special requests: [] Initial Weight: 135 lb Date Weight BP Urine PrFHR FuHt Pres MoCTX DilationFetal StVisit NoProviderComments E ot v te GA G Effac lucose ed Visit Notes Visit Date: 10/17/17 mno vb lof good fm irreular ctx Justine Sanchez MD on 10/17/17 Visit Date: 10/03/17 no vb lof good fm no regular ctx Justine Sanchez MD on 10/03/17 Visit Date: 08/28/17 Doing well. No VB, LOF. Good FM MOON Smith on 08/28/17 Visit Date: 08/01/17 no vb cramping Justine Sanchez MD on 08/01/17 Visit Date: 07/04/17 no vb cramping second draw today for nt screening Justine Sanchez MD on 07/04/17 no vb cramping Justine Sanchez MD on 07/04/17 Visit Date: 06/06/17 Doing well. Nausea improved. Had 1st sequ screen done MOON Smith on 06/06/17 ACOG First Trimester First Trimester: Desire for , Alcohol, Tobacco Cessation, Illicit/Recreational Drug/Substance Use, Intimate Partner Violence, Barriers to care, Unstable Housing, Communication Barriers, Environmental/Work Hazards, Anticipated Course of Care, Toxoplasmosis Precations, Use of Any medications, Sexual activity, Exercise, Dental Care, Sauna/Hot tub use, Seat Belt use, Childbirth classes/Hospital facilities, , Travel, Indications for US and Screening for Aneuploidy Diagnostics Diagnostics Labs Blood Type O POSITIVE 05/09/17 Antibody Screen NEGATIVE 05/09/17 Hct 34.0 % (37-47) L 09/18/17 Hgb 11.2 g/dl (12.0-15.0) L 09/18/17 Obstetrics Ultrasound 07/18/17 Rubella IgG Antibody 21.3 IU/mL 05/09/17 RPR NONREACTIVE (NONREACTIVE) 05/09/17 Hep Bs Antigen Negative (Negative) 05/09/17 Chlam trachomat DNA PCR Negative (Negative) 05/09/17 N.gonorrhoeae DNA (PCR) Negative (Negative) 05/09/17 Glucose 1 Hr 50 gm 88 mg/dL (70-140) 09/18/17 Miscellaneous Test 07/22/17 Details: HIV: Urine Culture: Sequential Screen: NIPT Screen: Results [id number] Office Urine Glucose Negative Last Edit by Angelique Lind on 10/17/17 15:02 Office Urine Protein Negative Last Edit by Angelique Lind on 10/17/17 15:02 Assessment AND Plan Problems 1. Supervision of high risk in first trimester O09.91 PRR MACHO 12/11/17 boyfriend Sukhwinder Leyva 2. complicated by tobacco use in third trimester O99.333 encouraged cessation 3. Choroid plexus cyst of fetus, single or unspecified fetus O35.0XX0 normal NIPT screening, no further fu indicated Plan Orders placed: none movement and labor precautions reviewed. ACOG trimester education reviewed and updated. see problem list details for updated plan management information. [place] appropriate handout given. Orders Orders: Coding Level of Care Code OB Routine Diagnoses Supervision of high risk in first trimester O09.91 complicated by tobacco use in third trimester O99.333 Trimester: third trimester Choroid plexus cyst of fetus, single or unspecified fetus O35.0XX0 Fetus number: single or unspecified fetus 10/17/17 1533 <Electronically signed by Justine Sanchez MD> Date Justine Sanchez MD Cosigner Signature: Date (if applicable) CC: [employer]ARD SUPERVISOR OFFICE VISIT Observed: 10/09/2017 Status: F Source: [place] REPORT 11:20 PM [facility] [address] [place] [address] OFFICE VISIT Date of Service: 10/03/17 MR#: [id number] Acct: [id number] Name: TOBIAS BAEZA Rep #: [id number] : 1990 Provider: Justine Sanchez MD Age/Sex: 26/F [place] [facility] [place]: Signed Intake Vital Signs10/03/17 Height 5 ft 4 in 10/03/17 Weight: 156 lb 6 oz 10/03/17 Body Mass Index (BMI) 26.8 10/03/17 Blood Pressure 108/67 Intake Visit Reasons: 30 WEEK Chief Complaint: est ob Forensic Examiner Required: No Is patient in pain?: No Allergies No Known Allergies Allergy (Verified 10/03/17 16:50) Medications [id number] fum 28 mg-folic acid 800 mcg-dha 200 mg oral pack See Label Instructions PO .COMPLEX #120 ea 04/22/17 [Rx Confirmed 10/03/17] Last Menstral Period: 03/06/17 Zika: Zika virus screening: Negative : No PFSH PFSH Family History Father No known health problems Mother No known health problems Social History household members: family housing: apartment current occupational status: unemployed pets and animals: No Smoking Status: Current every day smoker tobacco type: cigarettes second hand exposure: Yes substance use type: does not use do you feel safe at home: Yes Pregancy History 1 Elective abortions Hx Para Spontaneous abortions 1 Past Pregnancies Del. DateName GA/Weeks Outcome Route Bth WeighInfant GeLabor LgtAnesthesiDel LocatProvider FOB t n h a n 04/16/04 Delivery Date: 04/16/04 On 04/22/17 @ 10:33 Moriah Montgomery SAB HPI 30 WEEK: Details: TOBIAS BAEZA is a 26 year old who presents for routine OB visit. OB Visit MACHO Calculator Estimated Delivery Date 12/11/17 Based on LMP (certain) 03/06/17 Current WG 31w 0d Number 1 Expected Delivery Route/Plan Specific Issue/Plans flu vaccine declined minichart given: [] tdap vaccine: given 09/18/17 rhogam: [] LARC form signed: [] labor support person: Sukhwinder pain management: epidural cut cord/dad catch: yes : yes PP control planned: [] special requests: [] Initial Weight: 135 lb Date Weight BP Urine PrFHR FuHt Pres MoCTX DilationFetal StVisit NoProviderComments E ot v te GA G Effac lucose ed Visit Notes Visit Date: 10/03/17 no vb lof good fm no regular ctx Justine Sanchez MD on 10/03/17 Visit Date: 08/28/17 Doing well. No VB, LOF. Good FM MOON Smith on 08/28/17 Visit Date: 08/01/17 no vb cramping Justine Sanchez MD on 08/01/17 Visit Date: 07/04/17 no vb cramping second draw today for nt screening Justine Sanchez MD on 07/04/17 no vb cramping Justine Sanchez MD on 07/04/17 Visit Date: 06/06/17 Doing well. Nausea improved. Had 1st sequ screen done MOON Smith on 06/06/17 ACOG First Trimester First Trimester: Desire for , Alcohol, Tobacco Cessation, Illicit/Recreational Drug/Substance Use, Intimate Partner Violence, Barriers to care, Unstable Housing, Communication Barriers, Environmental/Work Hazards, Anticipated Course of Care, Toxoplasmosis Precations, Use of Any medications, Sexual activity, Exercise, Dental Care, Sauna/Hot tub use, Seat Belt use, Childbirth classes/Hospital facilities, , Travel, Indications for US and Screening for Aneuploidy Diagnostics Diagnostics Labs Blood Type O POSITIVE 05/09/17 Antibody Screen NEGATIVE 05/09/17 Hct 34.0 % (37-47) L 09/18/17 Hgb 11.2 g/dl (12.0-15.0) L 09/18/17 Obstetrics Ultrasound 07/18/17 Rubella IgG Antibody 21.3 IU/mL 05/09/17 RPR NONREACTIVE (NONREACTIVE) 05/09/17 Hep Bs Antigen Negative (Negative) 05/09/17 Chlam trachomat DNA PCR Negative (Negative) 05/09/17 N.gonorrhoeae DNA (PCR) Negative (Negative) 05/09/17 Glucose 1 Hr 50 gm 88 mg/dL (70-140) 09/18/17 Miscellaneous Test 07/22/17 Details: HIV: Urine Culture: Sequential Screen: NIPT Screen: ROS Const Denies fever(s) GI Denies abdominal pain, Reports as per HPI Denies vaginal discharge, Denies abnormal vaginal bleeding, Reports as per HPI Exam Const General: healthy appearing, comfortable, no acute distress GI Inspection: normal to inspection Palpation: soft, nontender Results [id number] Office Urine Glucose Negative Last Edit by Fidelina Miller on 10/03/17 16:59 Office Urine Protein Negative Last Edit by Fidelina Miller on 10/03/17 16:59 Assessment AND Plan Problems 1. Supervision of high risk in first trimester O09.91 PRR MACHO 12/11/17 boyfriend Sukhwinder KOSTAS Leyva 2. Choroid plexus cyst of fetus, single or unspecified fetus O35.0XX0 normal NIPT screening, no further fu indicated 3. complicated by tobacco use in third trimester O99.333 encouraged cessation Plan Orders placed: none movement and labor precautions reviewed. ACOG trimester education reviewed and updated. see problem list details for updated plan management information. GA appropriate handout given. Orders Orders: Coding Level of Care Code Off vis,est,level 3 Diagnoses Supervision of high risk in first trimester O09. Choroid plexus cyst of fetus, single or unspecified fetus O35.0XX0 Fetus number: single or unspecified fetus complicated by tobacco use in third trimester O99.333 Trimester: third trimester 10/09/172319 <Electronically signed by Justine Sanchez MD> Date Justine Sanchez MD Cosigner Signature: Date (if applicable) CC: DOWNTIME REPORT Observed: 10/02/2017 Status: F Source: [place] 1:55 PM [facility] RE[facility]IT[facility] Medical Records Department [address] [place] [address] Downtime Report MR#: [id number] Acct: [id number] Name: TOBIAS BAEZA Rep #: [id number] : 1990 26 From: Josh Farmer PCP: Care Physician, No Primary Status: REG CLI This patient was seen during an EMR downtime September 15, 2017 - September 22, 2017. This patient may have a combination of paper and electronic documentation or all paper documentation. All documentation is viewable within the e-chart portion of Press About Us for each patient visit. GLUCOSE CHALLENGE GEST Collected: 09/18/2017 Status: F Source: [place] 1H 50G 3:38 PM [facility] REPOSITORY Order Comment: RESULT(S) PREVIOUSLY REPORTED ON MANUAL REQUISITION DURING DOWNTIME. TYPE CODE TESTS RESULT OUT OF RANGE REFERENCE UNITS LAB L501.0250 70-140 mg/dL Normal GLU GEST 88 50g 1H Performed By: #### L501.0250 #### [facility] [address] [place], [address] CBC W/DIFF, AUTOMATED Collected: 09/18/2017 Status: F Source: [place] 3:38 PM [facility] REPOSITORY Order Comment: RESULT(S) PREVIOUSLY REPORTED ON MANUAL REQUISITION DURING DOWNTIME. TYPE CODE TESTS RESULT OUT OF RANGE REFERENCE UNITS LAB L100.1000 4.4-11.0 K/mm3 High WBC 13.1 LAB L100.1200 4.2-5.4 M/mm3 Low RBC 3.61 LAB L100.1300 12.0-15.0 g/dl Low HGB 11.2 LAB L100.1400 37-47 % Low HCT 34.0 LAB L100.1500 81-99 fL Normal MCV 94.2 LAB L100.1600 27.0-32.0 pg Normal MCH 31.0 LAB L100.1700 32-36 g/gl Normal MCHC 32.9 LAB L100.1810 11.6-14.6 % Normal RDW CV 12.9 LAB L100.1820 35.1-43.9 fl High RDW SD 44.1 LAB L100.1900 150-450 K/mm3 Normal PLT 237 LAB L100.2000 6.2-12.0 fl Normal MPV 11.2 LAB L100.2100 47-70 % High NEUT% 77.1 LAB L100.2200 19-41 % Low LY% 15.2 LAB L100.2300 0-10 % Normal MONO% 5.4 LAB L100.2400 0-5 % Normal EO% 1.8 LAB L100.2500 0-1 % Normal BASO% 0.2 LAB L100.2550 0.0-0.9 % Normal IM GRAN % 0.300 Result Comment: IG% - Immature Granulocytes (promyelocytes, myelocytes and metamyelocytes) > 1% indicates that a LEFT SHIFT is Present. LAB L100.2620 2.0-7.7 X10 3/uL High Absolute Neut 10.1 LAB L100.2720 0.83-4.51 X10 3/ul Normal Absolute Lymph 1.99 Performed By: #### L100.0100 #### [facility] [address] [place], [address] CAR AND YARD SUPERVISOR OFFICE VISIT Observed: 08/28/2017 Status: F Source: [place] REPORT 3:35 PM [facility] REPOSITORY [facility] [address] [place], [place] [address] OFFICE VISIT Date of Service: 08/28/17 MR#: [id number] Acct: [id number] Name: TOBIAS BAEZA Rep #: [id number] : 1990 Provider: DANTE Jean-Baptiste Age/Sex: 26/F [place] [facility] [place]: Signed Intake Vital Signs08/28/17 Height 5 ft 4 in 08/28/17 Weight: 150 lb 6 oz 08/28/17 Body Mass Index (BMI) 25.8 08/28/17 Blood Pressure 128/72 Intake Visit Reasons: est ob Forensic Examiner Required: No Accompanied by: Is patient in pain?: Yes Pain scale (1-10): 2 Allergies No Known Allergies Allergy (Verified 08/28/17 15:12) Medications [id number] fum 28 mg-folic acid 800 mcg-dha 200 mg oral pack See Label Instructions PO .COMPLEX #120 ea 04/22/17 [Rx Confirmed 08/28/17] Last Menstral Period: 03/06/17 Zika: Zika virus screening: Negative : No PFSH PFSH Family History Father No known health problems Mother No known health problems Social History household members: family housing: apartment current occupational status: unemployed pets and animals: No Smoking Status: Current every day smoker tobacco type: cigarettes second hand exposure: Yes substance use type: does not use do you feel safe at home: Yes Pregancy History 1 Elective abortions Hx Para Spontaneous abortions 1 Past Pregnancies Del. DateName GA/Weeks Outcome Route Bth WeighInfant GeLabor LgtAnesthesiDel LocatProvider FOB t n h a n 04/16/04 Delivery Date: 04/16/04 On 04/22/17 @ 10:33 Moriah Montgomery SAB HPI est ob: Details: TOBIAS BAEZA is a 26 year old who presents for routine OB visit. OB Visit MACHO Calculator Estimated Delivery Date 12/11/17 Based on LMP (certain) 03/06/17 Current WG 25w 0d Number 1 Expected Delivery Route/Plan Specific Issue/Plans flu vaccine declined minichart given: [] tdap vaccine: [] rhogam: [] LARC form signed: [] labor support person: Sukhwinder pain management: epidural cut cord/dad catch: yes : yes PP control planned: [] special requests: [] Initial Weight: Not Recorded Date Weight BP Urine PrFHR FuHt Pres MoCTX DilationFetal StVisit NoProviderComments E ot v te GA G Effac lucose ed Visit Notes Visit Date: 08/28/17 Doing well. No VB, LOF. Good FM MOON Smith on 08/28/17 Visit Date: 08/01/17 no vb cramping Justine Sanchez MD on 08/01/17 Visit Date: 07/04/17 no vb cramping second draw today for nt screening Justine Sanchez MD on 07/04/17 no vb cramping Justine Sanchez MD on 07/04/17 Visit Date: 06/06/17 Doing well. Nausea improved. Had 1st sequ screen done MOON Smith on 06/06/17 AC First Trimester First Trimester: Desire for , Alcohol, Tobacco Cessation, Illicit/Recreational Drug/Substance Use, Intimate Partner Violence, Barriers to care, Unstable Housing, Communication Barriers, Environmental/Work Hazards, Anticipated Course of Care, Toxoplasmosis Precations, Use of Any medications, Sexual activity, Exercise, Dental Care, Sauna/Hot tub use, Seat Belt use, Childbirth classes/Hospital facilities, , Travel, Indications for US and Screening for Aneuploidy Diagnostics Diagnostics Labs Blood Type O POSITIVE 05/09/17 Antibody Screen NEGATIVE 05/09/17 Hct 37.6 % (37-47) 05/09/17 Hgb 12.9 g/dl (12.0-15.0) 05/09/17 Obstetrics Ultrasound 07/18/17 Rubella IgG Antibody 21.3 IU/mL 05/09/17 RPR NONREACTIVE (NONREACTIVE) 05/09/17 Hep Bs Antigen Negative (Negative) 05/09/17 Chlam trachomat DNA PCR Negative (Negative) 05/09/17 N.gonorrhoeae DNA (PCR) Negative (Negative) 05/09/17 Miscellaneous Test 07/22/17 Details: HIV: Urine Culture: Sequential Screen: NIPT Screen: ROS Const Reports system reviewed and no additional complaints, except as docu GI Denies nausea, Denies vomiting, Denies abdominal pain Exam Const General: cooperative Nutritional Appearance: well nourished GI Palpation: soft, nontender, other (gravid) Results [id number] Office Urine Glucose Negative Last Edit by Angela Grant on 08/28/17 15:13 Office Urine Protein Negative Last Edit by Angela Grant on 08/28/17 15:13 Assessment AND Plan Problems 1. Supervision of high risk in first trimester O09.91 PRR MACHO 12/11/17 boyfriend Sukhwinder KOSTAS Leyva 2. complicated by tobacco use in first trimester O99.331 encouraged cessation 3. Choroid plexus cyst of fetus, single or unspecified fetus O35.0XX0 normal NIPT screening, no further fu indicated 4. 25 weeks gestation of Z3A.25 Plan Orders placed: none Reviewed of labor precautions, movement/kick counts ACOG trimester education reviewed and updated See problem list details for updated plan of care Gestational age appropriate handout given RTO: 3 weeks and 28 week labs Orders Orders: Coding Level of Care Code OB Routine Diagnoses Supervision of high risk in first trimester O09.91 complicated by tobacco use in first trimester O99.331 Trimester: first trimester Choroid plexus cyst of fetus, single or unspecified fetus O35.0XX0 Fetus number: single or unspecified fetus 25 weeks gestation of Z3A.25 08/28/17 1535 <Electronically signed by Page MUSTAFA> Date Page LOWEC Cosigner Signature: Date (if applicable) CC: CAR AND YARD SUPERVISOR OFFICE VISIT Observed: 08/07/2017 Status: F Source: [place] RE[place] 5:58 AM [facility] [address] [place] [address] OFFICE VISIT Date of Service: 08/01/17 MR#: [id number] Acct: [id number] Name: TOBIAS BAEZA Rep #: [id number] : 1990 Provider: Justine Sanchez MD Age/Sex: 26/F [place] [facility] [place]: Signed Intake Vital Signs08/01/17 Height 5 ft 4 in 08/01/17 Weight: 144 lb 6 oz 08/01/17 Body Mass Index (BMI) 24.7 08/01/17 Blood Pressure 117/68 Intake Visit Reasons: 21 weeks Forensic Examiner Required: No Is patient in pain?: No Allergies No Known Allergies Allergy (Verified 08/01/17 16:19) Medications [id number]-[id number] fum 28 mg-folic acid 800 mcg-dha 200 mg oral pack See Label Instructions PO .COMPLEX #120 ea 04/22/17 [Rx Confirmed 08/01/17] Last Menstral Period: 03/06/17 Zika: Zika virus screening: Negative : No PFSH PFSH Family History Father No known health problems Mother No known health problems Social History household members: family housing: apartment current occupational status: unemployed pets and animals: No Smoking Status: Current every day smoker tobacco type: cigarettes second hand exposure: Yes substance use type: does not use do you feel safe at home: Yes Pregancy History 1 Elective abortions Hx Para Spontaneous abortions 1 Past Pregnancies Del. DateName GA/Weeks Outcome Route Bth WeighInfant GeLabor LgtAnesthesiDel LocatProvider FOB t n h a n 04/16/04 Delivery Date: 04/16/04 On 04/22/17 @ 10:33 Moriah Montgomery SAB HPI 21 weeks: Details: TOBIAS BAEZA is a 26 year old who presents for routine OB visit. OB Visit MACHO Calculator Estimated Delivery Date 12/11/17 Based on LMP (certain) 03/06/17 Current WG 22w 0d Number 1 Expected Delivery Route/Plan Specific Issue/Plans flu vaccine declined Initial Weight: Not Recorded Date Weight BP Urine PrFHR FuHt Pres MoCTX DilationFetal StVisit NoProviderComments E ot v te GA G Effac lucose ed Visit Notes Visit Date: 08/01/17 no vb cramping Justine Sanchez MD on 08/01/17 Visit Date: 07/04/17 no vb cramping second draw today for nt screening Justine Sanchez MD on 07/04/17 no vb cramping Justine Sanchez MD on 07/04/17 Visit Date: 06/06/17 Doing well. Nausea improved. Had 1st sequ screen done MOON Smith on 06/06/17 ACOG First Trimester First Trimester: Desire for , Alcohol, Tobacco Cessation, Illicit/Recreational Drug/Substance Use, Intimate Partner Violence, Barriers to care, Unstable Housing, Communication Barriers, Environmental/Work Hazards, Anticipated Course of Care, Toxoplasmosis Precations, Use of Any medications, Sexual activity, Exercise, Dental Care, Sauna/Hot tub use, Seat Belt use, Childbirth classes/Hospital facilities, , Travel, Indications for US and Screening for Aneuploidy Diagnostics Diagnostics Labs Blood Type O POSITIVE 05/09/17 Antibody Screen NEGATIVE 05/09/17 Hct 37.6 % (37-47) 05/09/17 Hgb 12.9 g/dl (12.0-15.0) 05/09/17 Obstetrics Ultrasound 07/18/17 Rubella IgG Antibody 21.3 IU/mL 05/09/17 RPR NONREACTIVE (NONREACTIVE) 05/09/17 Hep Bs Antigen Negative (Negative) 05/09/17 Chlam trachomat DNA PCR Negative (Negative) 05/09/17 N.gonorrhoeae DNA (PCR) Negative (Negative) 05/09/17 Miscellaneous Test 07/22/17 Details: HIV: Urine Culture: Sequential Screen: NIPT Screen: ROS Const Denies fever(s) GI Denies abdominal pain, Reports as per HPI Denies vaginal discharge, Denies abnormal vaginal bleeding, Reports as per HPI Exam Const General: healthy appearing, comfortable, no acute distress GI Inspection: normal to inspection Palpation: soft, nontender Results [id number] Office Urine Glucose Negative Last Edit by Angela Grant on 08/01/17 16:22 Office Urine Protein Trace Last Edit by Angela Grant on 08/01/17 16:22 Assessment AND Plan Problems 1. Supervision of high risk in first trimester O09.91 PRR MACHO 12/11/17 boyfriend Sukhwinder Leyva 2. complicated by tobacco use in first trimester O99.331 encouraged cessation 3. Choroid plexus cyst of fetus, single or unspecified fetus O35.0XX0 normal NIPT screening, no further fu indicated Plan Orders placed: none movement and labor precautions reviewed. ACOG trimester education reviewed and updated. see problem list details for updated plan management information. [place] appropriate handout given. Orders Orders: Coding Level of Care Code Off vis,est,level 3 Diagnoses Supervision of high risk in first trimester O09.91 complicated by tobacco use in first trimester O99.331 Trimester: first trimester Choroid plexus cyst of fetus, single or unspecified fetus O35.0XX0 Fetus number: single or unspecified fetus 08/07/17 0558 <Electronically signed by Justine Sanchez MD> Date Justine Sanchez MD Cosignelsa Signature: Date (if applicable) CC: MISCELLANEOUS LAB Collected: 07/22/2017 Status: F Source: [place] PROCEDURE 12:52 PM [facility] REPOSITORY Order Comment: Comments: [id number] INFORMA SEQ Comments: [id number] testing Test(s) Ordered: INFORMA SEQ #[id number] TYPE CODE TESTS RESULT OUT OF RANGE REFERENCE UNITS LAB L801.1541 Normal [facility] TEST Result Comment: TEST RESULT UNITS informaSeq(R) with XY Analysis Results Report Screen Result No Aneuploidy Detected Fraction (%): 8.9 Chromosome 21 Result No Aneuploidy Detected Chromosome 21 Interpretation Consistent with diploid chromosome 21 Chromosome 18 Result No Aneuploidy Detected Chromosome 18 Interpretation Consistent with diploid chromosome 18 Chromosome 13 Result No Aneuploidy Detected Chromosome 13 Interpretation Consistent with diploid chromosome 13 Sex Chromosome Result No Aneuploidy Detected Sex Chromosome Interpretation Consistent with two sex chromosomes (XY - Male) Comments Correlation of these results with clinical findings is recommended. For definitive diagnostic testing, consider CV[facility] or amniocentesis. Number (Not provided. Phelan used as default.) Gestational Age at Collection 19.7 weeks Race Weight 140 lbs Indication for Testing Not provided. Test Description Cell-free DNA is isolated from the sample and analyzed using Next Generation Sequencing platform. Test Performance The informaSeq test performance indicators for sensitivity, specificity, respectively, are as follows: combined for 21, 18, 13 trisomies 98.89%, 99.79%; trisomy 21 99.14%, 99.94%; trisomy 18 98.31%, 99.90%; trisomy 13 98.15%, 99.95%. Positive predictive value and negative predictive value for combined 21, 18, 13 trisomies are 0.9200, 0.9997 and for trisomy 21 are 0.9681, 0.9999. The sensitivity and specificity for sex chromosomes: monosomy X (95% and 99%), XX (97.60% and 99.20%), and XY (99.10% and 98.90%). The more rare sex aneuploidies (XXX, XXY, XYY) have limited data which precludes performance calculations. Test Limitations The informaSeq(SM) test is a aneuploidy assay used for screening chromosomes 13, 18, 21, X and Y. The test is validated in phelan (13, 18, 21, X, Y) and twin (13, 18, 21) pregnancies with gestational ages of at least 10 weeks. This test is not intended to be used for diagnostic purposes or as a stand-alone diagnostic test without confirmation by another medically established diagnostic product or procedure. In rare cases, the test results may reflect confined placental mosaicism or maternal aneuploidy, rather than the status. A negative test result does not exclude aneuploidy of chromosomes 13, 18, 21, sex chromosomes, or the presence of other chromosome or abnormalities. Disclaimer Correlation of these results with all clinical findings is recommended. This test was developed and the performance characteristics determined by [facility]. It has not been cleared or approved by the U.S. Food and Drug Administration. References Veronica S, Chung S, Du H, et al. Clinical Laboratory Experience with Noninvasive Testing: Update on Clinically Relevant Metrics. ISPD 2014 medical records auditor Norm DW, Arsen LD, Giulia CrawfordD, et al. Genome-wide aneuploidy detection by maternal plasma DNA sequencing. Obstet Gynecol. 2012 August; 119(5):890-901. Suzi T, Deloris J, Veronica S, de Nisha E, Odette RP, Meg AJ. Initial clinical laboratory experience in noninvasive testing for aneuploidy from maternal plasma DNA samples. Prenat Diagn. 2013 Herbie; 33(6):569-574. Arian AR, Veda SJ, Emil RG, et al. ACMG statement on noninvasive screening for aneuploidy. Allie Med. 2013 August; 15(5):395-398. Internal correlation data on file. [place] [employer] Committee on Genetics. Noninvasive testing for aneuploidy. Committee Opinion No. 545. Obstet Gynecol 2012 Mar; 120(6):5651-1237. Botanical Tans. Analytical Validation of the verifi(R) Test: Enhanced Test Performance for Detecting Trisomies 21, 18, 13 and the Option for Classification of Sex Chromosome Status. [facility]: Botanical Tans; 2012. Director Review Laboratory Directors: Gabriella Fuentes, PhD Rae Cruz, PhD Gertrudis Betancur, PhD Susana Maradiaga, PhD Kalyn Rose, PhD Wojciech Moss, PhD TESTING PERFORMED AT [facility]. ORIGINAL REPORT ON FILE IN LAB CONTAINS ADDITIONAL TEST SITE INFORMATION. Performed By: #### L801.1541 #### [facility] [address], [address] OB ANATOMY SCAN Observed: 07/18/2017 Status: F Source: [place] 12:16 PM [facility] REPOSITORY [facility] Imaging Services [address] [place] [id number] OB Anatomy Scan MR#: [id number] Acct: [id number] Name: TOBIAS BAEZA Rep #: [id number] : 1990 F 26 From: Valente Stanley MD PCP: Care Physician, No Primary Status: REG CLI Study: OB Anatomy Scan Date of Exam: 07/18/17 Exam# [id number] Ordering Dr: Justine Sanchez MD STUDY: SECOND AND THIRD TRIMESTER OBSTETRICAL ULTRASOUND REASON FOR EXAM: Female, 26 years old. Routine survey. LMP: March 06, 2017. TECHNIQUE: Transabdominal PRIOR ULTRASOUND: None. FINDINGS: There is a single intrauterine fetus. The fetus is in a footling breech presentation. There is demonstrated cardiac activity with a heart rate of 142 bpm. There is a normal amniotic fluid volume. The largest amniotic fluid pocket measures 7.6 cm x 2.8 cm. The placenta is anterior in location and is not low lying. There are Grade 0 placental changes. The cervix measures 3.3 cm in length. The adnexal regions are not visualized. BIOMETRY: BPD: 4.32 cm: 19 weeks, 1 days HC: 16.17 cm: 19 weeks, 0 days AC: 14.56 cm: 20 weeks, 0 days FL: 2.84 cm: 18 weeks, 5 days CI: 77% FL/BPD: 66% FL/HC: FL/AC: 20% HC/AC: 1.1 age by current US: 19 weeks, 2 days. MACHO by current US: December 10, 2017. Estimated weight: 284 grams, +/- 42 grams, 54 %. Age by LMP: 19 weeks, 1 days. MACHO by LMP: December 11, 2017. ANATOMY: Gender: Male Cranium: Normal lateral ventricles. Choroid plexus cyst measuring 3 mm x 4 mm x 2 mm. Normal cerebellum. Normal cisterna magna. Normal face, nose and lips. Chest: Normal 4-chamber heart. Abdomen/Pelvis: Normal diaphragm. Normal stomach. Normal abdominal wall. Normal cord insertion. Normal 3 vessel cord. Normal kidneys. Normal bladder. Spine: Normal cervical spine. Normal thoracic spine. Normal lumbar spine. Normal sacrum. Extremities: Normal bilateral upper extremities. Normal bilateral lower extremities. US/OB Anatomy Scan IMPRESSION: Single live intrauterine gestation with a mean gestational age of 19 weeks and 2 days. 3 mm x 4 mm x 2 mm choroid plexus cyst. Electronically Signed: Valente Stanley MD at 20:36 EDT Tel [phone], Service support , CC: No Primary Care Physician; Justine Sanchez MD Gluer Machine Operator: Signed CAR AND YARD SUPERVISOR OFFICE VISIT Observed: 07/06/2017 Status: F Source: [place] REPORT 9:35 PM [facility] [address] [place] [address] OFFICE VISIT Date of Service: 07/04/17 MR#: [id number] Acct: [id number] Name: ARYANTOBIAS Sukh Rep #: [id number] : 1990 Provider: Justine Sanchez MD Age/Sex: 26/F [place] [facility] [place] Signed Intake Vital Signs07/04/17 Height 5 ft 4 in 07/04/17 Weight: 140 lb 8 oz 07/04/17 Body Mass Index (BMI) 24.1 07/04/17 Blood Pressure 109/64 Intake Visit Reasons: 17 WEEKS Forensic Examiner Required: No Accompanied by: Sukhwinder Is patient in pain?: No Allergies No Known Allergies Allergy (Verified 07/04/17 11:45) Medications [id number] fum 28 mg-folic acid 800 mcg-dha 200 mg oral pack See Label Instructions PO .COMPLEX #120 ea 04/22/17 [Rx Confirmed 07/04/17] Last Menstral Period: 03/06/17 Zika: Zika virus screening: Negative : No PFSH PFSH Family History Father No known health problems Mother No known health problems Social History household members: family housing: apartment current occupational status: unemployed pets and animals: No Smoking Status: Current every day smoker tobacco type: cigarettes second hand exposure: Yes substance use type: does not use do you feel safe at home: Yes Pregancy History 1 Elective abortions Hx Para Spontaneous abortions 1 Past Pregnancies Del. DateName GA/Weeks Outcome Route Bth WeighInfant GeLabor LgtAnesthesiDel LocatProvider FOB t n h a n 04/16/04 Delivery Date: 04/16/04 On 04/22/17 @ 10:33 Moriah Montgomery SAB HPI 17 WEEKS: Details: TOBIAS BAEZA is a 26 year old who presents for routine OB visit. OB Visit MACHO Calculator Estimated Delivery Date 12/11/17 Based on LMP (certain) 03/06/17 Current WG 17w 3d Number 1 Expected Delivery Route/Plan Specific Issue/Plans flu vaccine declined Initial Weight: Not Recorded Date Weight BP Urine PrFHR FuHt Pres MoCTX DilationFetal StVisit NoProviderComments E ot v te GA G Effac lucose ed Visit Notes Visit Date: 07/04/17 no vb cramping second draw today for nt screening Justine Sanchez MD on 07/04/17 no vb cramping Justine Sanchez MD on 07/04/17 Visit Date: 06/06/17 Doing well. Nausea improved. Had 1st sequ screen done MOON Smith on 06/06/17 ACOG First Trimester First Trimester: Desire for , Alcohol, Tobacco Cessation, Illicit/Recreational Drug/Substance Use, Intimate Partner Violence, Barriers to care, Unstable Housing, Communication Barriers, Environmental/Work Hazards, Anticipated Course of Care, Toxoplasmosis Precations, Use of Any medications, Sexual activity, Exercise, Dental Care, Sauna/Hot tub use, Seat Belt use, Childbirth classes/Hospital facilities, , Travel, Indications for US and Screening for Aneuploidy Diagnostics Diagnostics Labs Blood Type O POSITIVE 05/09/17 Antibody Screen NEGATIVE 05/09/17 Hct 37.6 % (37-47) 05/09/17 Hgb 12.9 g/dl (12.0-15.0) 05/09/17 Rubella IgG Antibody 21.3 IU/mL 05/09/17 RPR NONREACTIVE (NONREACTIVE) 05/09/17 Hep Bs Antigen Negative (Negative) 05/09/17 Chlam trachomat DNA PCR Negative (Negative) 05/09/17 N.gonorrhoeae DNA (PCR) Negative (Negative) 05/09/17 Miscellaneous Test 05/26/17 Details: HIV: Urine Culture: Sequential Screen: NIPT Screen: ROS Const Denies fever(s) GI Denies abdominal pain, Reports as per HPI Denies vaginal discharge, Denies abnormal vaginal bleeding, Reports as per HPI Exam Const General: healthy appearing, comfortable, no acute distress GI Inspection: normal to inspection Palpation: soft, nontender Results [id number] Office Urine Glucose Negative Last Edit by Angela Grant on 07/04/17 11:53 Office Urine Protein Positive Last Edit by Angela Grant on 07/04/17 11:53 Protein trace Assessment AND Plan Problems 1. Supervision of high risk in first trimester O09.91 PRR MACHO 12/11/17 boyfriend Sukhwinder KOSTAS Leyva 2. screening encounter Z36.9 NT done 05/26/17. Follow up scheduled between 06/27/17-07/11/17. Patient notified 3. complicated by tobacco use in first trimester O99.331 encouraged cessation Plan Orders placed: anatomy scan ACOG trimester education reviewed and updated. see problem list details for updated plan management information. GA appropriate handout given. Orders Orders: Coding Level of Care Code Off vis,est,level 3 Diagnoses Supervision of high risk in first trimester O09.91 screening encounter Z36.9 complicated by tobacco use in first trimester O99.331 Trimester: first trimester 07/06/17 2135 <Electronically signed by Justine Sanchez MD> Date Justine Sanchez MD Cosigner Signature: Date (if applicable) CC: HIV - [facility] Collected: 07/04/2017 Status: F Source: [place] 12:40 PM [facility] REPOSITORY TYPE CODE TESTS RESULT OUT OF RANGE REFERENCE UNITS LAB L3890.6005 Nonreactive Normal HIV - [facility] Non-Reactive Performed By: #### L3890.6005 #### [facility] [address] [place], [address] [employer] OFFICE VISIT Observed: 06/06/2017 Status: F Source: [place] REPORT 2:06 PM [facility] REPOSITORY [facility] [place] [place] [address] [place] [address] OFFICE VISIT Date of Service: 06/06/17 MR#: [id number] Acct: [id number] Name: TOBIAS BAEZA Rep #: [id number] : 1990 Provider: DANTE Jean-Baptiste Age/Sex: 26/F [place] [facility] [place]: Signed Intake Vital Signs06/06/17 Height 5 ft 4 in 06/06/17 Weight: 135 lb 4 oz 06/06/17 Body Mass Index (BMI) 23.2 06/06/17 Blood Pressure 121/71 Intake Visit Reasons: (OB) Chief Complaint: est ob Forensic Examiner Required: No Is patient in pain?: No Allergies No Known Allergies Allergy (Unverified 06/06/17 13:44) Medications [id number] fum 28 mg-folic acid 800 mcg-dha 200 mg oral pack See Label Instructions PO .COMPLEX #120 ea 04/22/17 [Rx Confirmed 06/06/17] Last Menstral Period: 03/06/17 Zika: Zika virus screening: Negative : No PFSH PFSH Family History Father No known health problems Mother No known health problems Social History household members: family housing: apartment current occupational status: unemployed pets and animals: No Smoking Status: Current every day smoker tobacco type: cigarettes second hand exposure: Yes substance use type: does not use do you feel safe at home: Yes Pregancy History 1 Elective abortions Hx Para Spontaneous abortions 1 Past Pregnancies Del. DateName GA/Weeks Outcome Route Bth WeighInfant GeLabor LgtAnesthesiDel LocatProvider FOB t n h a n 04/16/04 Delivery Date: 04/16/04 On 04/22/17 @ 10:33 Moriah Montgomery SAB HPI (OB): Details: TOBIAS BAEZA is a 26 year old who presents for routine OB visit. Urine 2 dip Glucose negative Protein Negative OB Visit MACHO Calculator Estimated Delivery Date 12/11/17 Based on LMP (certain) 03/06/17 Current WG 13w 1d Number 1 Expected Delivery Route/Plan Specific Issue/Plans flu vaccine declined Initial Weight: Not Recorded Date Weight BP Urine PrFHR FuHt Pres MoCTX DilationFetal StVisit NoProviderComments E ot v te GA G Effac lucose ed Visit Notes Visit Date: 06/06/17 Doing well. Nausea improved. Had 1st sequ screen done MOON Smith on 06/06/17 ACOG First Trimester First Trimester: Intimate Partner Violence, Barriers to care, Unstable Housing, Communication Barriers, Environmental/Work Hazards, Dental Care, Travel, Tobacco Cessation (smoke half of one cig yesterday-working on it), Alcohol, Illicit/Recreational Drug/Substance Use, Desire for , Nurtrition and weight gain, Anticipated Course of Care, Toxoplasmosis Precations, Use of Any medications, Sexual activity, Exercise, Sauna/Hot tub use, Indications for US, Seat Belt use, Screening for Aneuploidy, Childbirth classes/Hospital facilities and Diagnostics Diagnostics Labs Blood Type O POSITIVE 05/09/17 Antibody Screen NEGATIVE 05/09/17 Hct 37.6 % (37-47) 05/09/17 Hgb 12.9 g/dl (12.0-15.0) 05/09/17 Rubella IgG Antibody 21.3 IU/mL 05/09/17 RPR NONREACTIVE (NONREACTIVE) 05/09/17 Hep Bs Antigen Negative (Negative) 05/09/17 Chlam trachomat DNA PCR Negative (Negative) 05/09/17 N.gonorrhoeae DNA (PCR) Negative (Negative) 05/09/17 Miscellaneous Test Pending 05/26/17 Details: HIV: Urine Culture: Sequential Screen: NIPT Screen: ROS Const Reports system reviewed and no additional complaints, except as docu GI Denies nausea, Denies vomiting, Denies abdominal pain Exam Const General: cooperative Nutritional Appearance: well nourished GI Palpation: soft, nontender, other (gravid) Assessment AND Plan Problems 1. Supervision of high risk in first trimester O09.91 MACHO 12/11/17 boyfriend Sukhwinder KOSTAS Leyva; HIV with 28 wk labs 2. 13 weeks gestation of Z3A.13 Plan Orders placed: anatomy US Brief US to confirm FHT. Fetus active Due for 2nd screen 06/27-07/11. Reviewed of labor precautions, movement/kick counts ACOG trimester education reviewed and updated See problem list details for updated plan of care Gestational age appropriate handout given RTO: 4 weeks Orders Orders: Coding Level of Care Code Off vis,est,level 3 Diagnoses Supervision of high risk in first trimester O09.91 13 weeks gestation of Z3A.13 06/06/17 1406 <Electronically signed by Page MUSTAFA> Date Page MUSTAFA Cosigner Signature: Date (if applicable) CC: MISCELLANEOUS LAB Collected: 05/26/2017 Status: F Source: [place] 2:27 PM [facility] REPOSITORY Order Comment: Test(s) Ordered: SEQUENTIAL SCREEN TYPE CODE TESTS RESULT OUT OF RANGE REFERENCE UNITS LAB L801.1541 Normal [facility] TEST Result Comment: Sent directly to testing facility per ordering physician. 06/16/17 1711 MYOUNG Performed By: #### L801.1541 #### [facility] [address] [place], [address] [employer] OFFICE VISIT Observed: 05/11/2017 Status: F Source: [place] RE[place] 11:17 PM [facility] REPOSITORY [facility] [address] [place] [address] OFFICE VISIT Date of Service: 05/09/17 MR#: [id number] Acct: [id number] Name: TOBIAS BAEZA Rep #: [id number] : 1990 Provider: Justine Sanchez MD Age/Sex: 26/F [place] [facility] [place]: Signed Intake Vital Signs05/09/17 Height 5 ft 4 in 05/09/17 Weight: 132 lb 05/09/17 Body Mass Index (BMI) 22.6 05/09/17 Blood Pressure 124/70 Intake Visit Reasons: New OB Chief Complaint: NEW OB Is patient in pain?: No Allergies No Known Allergies Allergy (Unverified 04/22/17 10:30) Medications [id number] fum 28 mg-folic acid 800 mcg-dha 200 mg oral pack See Label Instructions PO .COMPLEX #120 ea 04/22/17 [Rx Confirmed 04/22/17] Last Menstral Period: 03/06/17 PFSH PFSH Family History Father No known health problems Mother No known health problems Social History household members: family housing: apartment current occupational status: unemployed pets and animals: No Smoking Status: Current every day smoker tobacco type: cigarettes second hand exposure: Yes substance use type: does not use do you feel safe at home: Yes Pregancy History 1 Elective abortions Hx Para Spontaneous abortions 1 Past Pregnancies Del. DateName GA/Weeks Outcome Route Bth WeighInfant GeLabor LgtAnesthesiDel LocatProvider FOB t n h a n 04/16/04 Delivery Date: 04/16/04 On 04/22/17 @ 10:33 Moriah Montgomery SAB HPI New OB: Details: TOBIAS BAEZA is a 26 year old who presents for New OB visit. OB Visit MACHO Calculator Estimated Delivery Date 12/11/17 Based on LMP (certain) 03/06/17 Current WG 9w 3d Number 1 Comments: Limited transvaginal ultrasound performed to confirm EDC and viability. CRL is 22.1 mm measuring 9w1d which is consistent with LMP. FHTs 160. no gross abnormalities noted. Expected Delivery Route/Plan Specific Issue/Plans flu vaccine declined Menstrual History Last Menstral Period: 03/06/17 Reported LMP: definite Normal amount/duration: Yes On hormonal BC at conception: No Antepartum Record Genetic Screening: Congenital Heart Defect: Other, Neural Tube Defect: Other, Hemoglobinopathy Or Carrier: Other, Cystic Fibrosis: Other, Chromosome Abnormality: Other, Stanley-Sachs: Other, Hemophilia: Other, Intellectual Disability/Autism: Other (aunt had recurrent loss), Recurrent Loss/Stillbirth: Patient, Other Structural Defect: Other, Other Genetic Disease: Other, Maternal Metabolic Disorder: Other Infection History: Live with someone with TB or Exposed to TB: No, Patient or Partner has history of Genital Herpes: No, Rash or Viral illness since last mentrual period: No, Prior GBS-Infected child: No, History of STD: Yes (chlamydia), HIV Infection: No, History of Hepatitis: No, Recent travel outside of [place]: No, Concern for Hep exposure: No, Varicella immune: Yes Medical History Medical History: Negative: Diabetes, Hypertension, Heart disease, Auto-immune disorder, Kidney disease/UTI, Neurologic/epilepsy, Psychiatric, Depression/ depression, Hepatitis/liver disease, Varicosities/phlebitis, Thyroid dysfunction, Trauma/domestic violence, History of blood transfusions, D (Rh) Sensitized, Pulmonary (e.g.,TB,Asthma), Seasonal allergies, Drug/latex allergies/reactions, Breast, Patient Carrier surgery, Operations/hospitalizations, Anesthetic complications, History of abnormal pap, Uterine anomaly/ami, Infertility, Anti-retroviral treatment, Relevant family history, Other ACOG First Trimester First Trimester: Desire for , Alcohol, Tobacco Cessation, Illicit/Recreational Drug/Substance Use, Intimate Partner Violence, Barriers to care, Unstable Housing, Communication Barriers, Environmental/Work Hazards, Anticipated Course of Care, Nurtrition and weight gain, Toxoplasmosis Precations, Use of Any medications, Sexual activity, Exercise, Dental Care, Sauna/Hot tub use, Seat Belt use, Childbirth classes/Hospital facilities, , Travel, Indications for US and Screening for Aneuploidy ROS Const Denies fever(s), Reports system reviewed and no additional complaints, except as docu, Reports fatigue Eyes Reports system reviewed and no additional complaints, except as docu ENT Reports system reviewed and no additional complaints, except as docu Card Denies chest pain, Denies shortness of breath Resp Reports system reviewed and no additional complaints, except as docu, Denies shortness of breath, Denies cough GI Reports nausea, Denies abdominal pain Reports system reviewed and no additional complaints, except as docu Musc Reports system reviewed and no additional complaints, except as docu Skin/Breast Reports system reviewed and no additional complaints, except as docu Neuro Yes system reviewed and no additional complaints, except as docu Psych Reports system reviewed and no additional complaints, except as docu Endo Reports fatigue, Reports system reviewed and no additional complaints, except as docu Exam Const General: healthy appearing, comfortable, no acute distress Orientation: alert HENMO Head: normal to inspection, atraumatic, normocephalic Ears: external ears normal, hearing grossly normal bilaterally Nose: nares normal, external nose normal Mouth: oral mucosae normal Teeth and gingiva: dentition normal Eyes General: appearance normal, both eyes and all related structures Neck Neck: no lymphadenopathy, supple, normal visual inspection Thyroid: thyroid normal Chest Chest palpation AND inspection: normal inspection of the chest Breast inspection: normal inspection of the breasts, normal inspection of the axillae Breast palpation: normal palpation of the breasts, normal palpation of the axillae Resp Effort AND Inspection: normal respiratory effort GI Inspection: normal to inspection Palpation: soft, no hepatosplenomegaly General: bladder normal to palpation External Female Exam: normal external appearance, normal appearance of the urethra Urethra: normal appearance of the urethra Speculum Exam - Vagina: normal appearance of the vagina, normal vaginal discharge Speculum Exam - Cervix: normal appearance of the cervix Bimanual Exam- Vagina AND Uterus: bladder normal to palpation, normal bimanual exam, uterus non-tender, other Bimanual Exam- Adnexa, other: adnexae non-tender Skin General: no rashes or lesions noted Neuro Motor: muscle tone normal throughout, no movement abnormalities noted Extrem General: normal to inspection, full ROM Assessment AND Plan Problems 1. Supervision of high risk in first trimester O09.91 MACHO 12/11/17 boyfriend Sukhwinder Leyva 2. complicated by tobacco use in first trimester O99.331 encouraged cessation 3. screening encounter Z36.9 nt screening planned Plan Patient oriented to practice and discussed care expectations and screenings. ACOG book offered to patient. labs and 19-20 week anatomy ultrasound ordered. Genetic screening offered to patient and patient chose: nt screening Orders Orders: Referrals: Supplemental Info ACOG book given and patient encouraged to read about nutrition, exercise, weight gain, and food avoidance in . Coding Level of Care Code Off vis,new,level 4 Diagnoses Supervision of high risk in first trimester O09.91 complicated by tobacco use in first trimester O99.331 Trimester: first trimester screening encounter Z36.9 05/11/17 2317 <Electronically signed by Justine Sanchez MD> Date Justine Sanchez MD Cosigner Signature: Date (if applicable) CC: ALLERGIES ALLERGIES DATE TYPE / CODE NAME / CODE REACTION SEVERITY SOURCE 05/04/2018 Drug No Known Unknown [facility] Allergy/416 Allergies/A02798 [facility] 134483(SNOM 0388(RXNORM) Repository ED CT) Drug/923694 No Known Sikh 003(SNOMED Allergies [facility]) System Repository ENCOUNTERS ENCOUNTERS ADMIT/DISCHARGE ACCOUNT ADMITTING ENCOUNTER LOCATION SOURCE NUMBER CLASS 05/06/2018/05/06/19 [id number] Ambulatory BMSBuilding:B Eva [address] [facility] Repository 05/04/2018 [id number] Ambulatory [facility] Hospital ing:LABSPEC Repository 05/04/2018/05/04/19 [id number] Ambulatory BMSBuilding:B [place] [address] [facility] Repository 04/10/2018 [id number] Ambulatory [facility] Hospital ing:LAB Repository 04/01/2018/04/01/20 [id number] Ambulatory BMSBuilding:B [address] [address] MS.[facility] Repository 01/31/2018/02/01/20 [id number] [place], [address] ing:[facility] EDRoom: WR Repository 01/23/2018/01/24/20 [id number] Ambulatory BMSBuilding:B Eva 18 MS.[facility] Repository 12/16/2017 [id number] Ambulatory BMSBuilding:B Eva MS.[facility] Repository 12/08/2017 [id number] Ambulatory BMSBuilding:B Eva MS.[facility] Repository 12/01/2017/12/06/19 [id number] Melissa, Inpatient [place] [address] Justine [facility] ing:WPRoom: Repository DE817Mat: 1 12/01/2017 [id number] Melissa, Ambulatory BMSBuilding:B Eva Fletcher MS.CF.[facility] Repository 12/01/2017 [id number] Melissa, Ambulatory BMSBuilding:B Eva [place] MS.CF.[facility] Repository 12/01/2017 [id number] Melissa, Ambulatory BMSBuilding:B Eva Fletcher MS.CF.[facility] Repository 12/01/2017/12/02/19 [id number] Ambulatory BMSBuilding:B [place] [address] [facility] Repository 11/24/2017/11/25/19 [id number] Ambulatory BMSBuilding:B Eva 18 [facility] Repository 11/20/2017 [id number] Ambulatory BMSBuilding:B Eva MS.[facility] Repository 11/17/2017 [id number] Ambulatory [facility] HospitalBuild Hospital ing:LABSPEC Repository 11/17/2017/11/18/19 [id number] Ambulatory BMSBuilding:B [place] [address] MS.[facility] Repository 11/06/2017 [id number] Ambulatory BMSBuilding:B [place] MS.[facility] Repository 10/31/2017/11/01/19 [id number] Ambulatory BMSBuilding:B Eva 18 MS.[facility] Repository 10/23/2017 [id number] Ambulatory BMSBuilding:B [place] MS.[facility] Repository 10/17/2017/10/18/19 [id number] Ambulatory BMSBuilding:B [place] 18 MS.[facility] Repository 10/09/2017 [id number] Ambulatory BMSBuilding:B [place] MS.[facility] Repository 10/03/2017/10/04/19 [id number] Ambulatory BMSBuilding:B Eva 18 [facility] Repository 09/18/2017 [id number] Ambulatory [facility] HospitalBuild Hospital ing:LAB Repository 09/18/2017/09/19/19 [id number] Ambulatory BMSBuilding:B Eva 18 [facility] Repository 08/28/2017/08/29/19 [id number] Ambulatory BMSBuilding:B [place] 18 [facility] Repository 08/01/2017/08/02/19 [id number] Ambulatory BMSBuilding:B Eva 18 [facility] Repository 07/22/2017 [id number] Ambulatory [facility] HospitalBuild Hospital ing:LAB Repository 07/22/2017 [id number] Ambulatory [facility] Hospital[facility] Hospital ing:LAB.FUTUR Repository E 07/18/2017 [id number] Ambulatory [facility] Hospital[facility] Hospital ing:[place] Repository 07/04/2017 [id number] Ambulatory [facility] Hospital ing:LAB Repository 07/04/2017/07/05/19 [id number] Ambulatory BMSBuilding:B [place] 18 [facility] Repository 06/06/2017/06/06/19 [id number] Ambulatory BMSBuilding:B [place] 18 [facility] Repository 05/26/2017 [id number] Ambulatory [facility] Hospital ing:LAB Repository 05/26/2017/05/26/19 [id number] [facility] Repository 05/09/2017/05/09/19 [id number] Ambulatory BMSBuilding:B Eva 18 MS.[facility] Repository PAYERS PAYERS ENCOUNTER GUARANTOR PAYER SUBSCRIBER SOURCE 05/06/2018 TOBIAS T Primary TOBIAS T [place] [id number] Insurance:MOLINAPolic KLOKADOB: [facility] BUCKEYE STGHENT y Number: [id number], [place] [id number] Repository 11662Oof: (330) Date:4056-50-85XA [phone] () [address] [place] [address] 87825IK: 05/06/2018 Secondary NOT GIVENUNK [place] Insurance:SELF PAY [facility] Number: Effective Repository Date:2018-05-06 05/04/2018 TOBIAS T Primary TOBIAS T [place] [id number] [address] Insurance:MOLINAPolic KLOKADOB: [facility] y Number: [id number], [place] [id number] Repository [address]Ras: (330) Date:6349-59-22LB [phone] () [address] [place] [address] 21418WR: 05/04/2018 Secondary NOT GIVENUNK Eva Insurance:SELF PAY [facility] Number: Effective Repository Date:2018-05-04 05/04/2018 OTBIAS T Primary TOBIAS T Eva [id number] W Insurance:MOLINAPolic KLOKADOB: [facility] y Number: [id number], [place] [id number] Repository [address]Glo: (330) Date:0335-54-70KF [phone] () [address] [place] [address] 86216NL: 05/04/2018 Secondary NOT GIVENUNK [place] Insurance:SELF PAY [facility] Number: Effective Repository Date:2018-05-04 04/10/2018 TOBIAS T Primary TOBIAS T Eva [id number] Insurance:MOLINAPolic KLOKADOB: [facility] y Number: [id number], [place] [id number] Repository [address]: 330) Date:1003-67-49RG [phone] () [address] [place] [address] 48868DD: 04/10/2018 Secondary NOT GIVENUNK Eva Insurance:SELF PAY [facility] Number: Effective Repository Date:2018-04-10 04/01/2018 TOBIAS T Primary TOBIAS T Eva [id number] W Insurance:MOLINAPolic KLOKADOB: [facility] y Number: [id number], [place] [id number] Repository [address]16[address]Eqa: 330) Date:1204-91-59SR [phone] () [address] [place] [address] 99888OY: 04/01/2018 Secondary NOT GIVENUNK [place] Insurance:SELF PAY [facility] Number: Effective Repository Date:2018-04-01 01/31/2018 TOBIAS T Primary TOBIAS T Sikh KLOKADOB: Insurance:WOOD KLOKADOB: [facility] [id number] [place] [address] Number: Effective W [facility] Repository [place], [place] Date:2018-01-31 [place] [address]Ofz: [id number] [phone]: Name:CD:[id number] () N [facility] ()Tel: ([phone]) 210[place], [place] [phone] () 113[address]RY: 01/23/2018 TOBIAS T Primary TOBIAS T [place] [id number] Insurance:MOLINAPolic KLOKADOB: Community [address] y Number: [id number], [place] [id number] Repository 36222Dhg: (330) Date:8875-64-39UM [phone] () [address] [place] [address] 67466FW: 01/23/2018 Secondary NOT GIVENUNK Prentice Insurance:SELF PAY [facility] Number: Effective Repository Date:2018-01-23 12/16/2017 TOBIAS T Primary TOBIAS T Eva [id number] Insurance:MOLINAPolic KLOKADOB: Community [address] y Number: [id number], [place] [id number] Repository 31757Fte: (330) Date:1391-33-60UH [phone] () [address] [place] [address] 99134HN: 12/16/2017 Secondary NOT GIVENUNK Eva Insurance:SELF PAY [facility] Number: Effective Repository Date:2017-11-17 12/08/2017 TOBIAS T Primary TOBIAS T Eva [id number] Insurance:MOLINAPolic KLOKADOB: Community [address] y Number: [id number], [place] [id number] Repository 54511Imh: (330) Date:6276-49-32LJ [phone] () [address] [place] [address] 23162KV: 12/08/2017 Secondary NOT GIVENUNK Prentice Insurance:SELF PAY [facility] Number: Effective Repository Date:2017-11-17 12/01/2017 TOBIAS T Primary TOBIAS T Prentice [id number] Insurance:MOLINAPolic KLOKADOB: Community [address] y Number: [id number], [place] [id number] Repository 77426Nzm: (330) Date:5662-47-09TV [phone] () [address] [place] [address] 65897YT: 12/01/2017 Secondary NOT GIVENUNK Eva Insurance:SELF PAY [facility] Number: Effective Repository Date:2017-12-01 12/01/2017 TOBIAS T Primary TOBIAS T Eva [id number] Insurance:MOLINAPolic KLOKADOB: Community [address] y Number: [id number], [place] [id number] Repository 03061Fls: (330) Date:4216-66-05SW [phone] () [address] [place] [address] 28901NA: 12/01/2017 Secondary NOT GIVENUNK Prentice Insurance:SELF PAY [facility]: Effective Repository Date:2017-12-01 12/01/2017 TOBIAS T Primary TOBIAS T Prentice [id number] Insurance:MOLINAPolic KLOKADOB: Community [address] y Number: [id number], [place] [id number] Repository 27399Zxp: (330) Date:6542-15-52GA [phone] () [address] [place] [address] 26186NH: 12/01/2017 Secondary NOT GIVENUNK Prentice Insurance:SELF PAY [facility] Number: Effective Repository Date:2017-12-01 12/01/2017 TOBIAS T Primary TOBIAS T Prentice [id number] Insurance:MOLINAPolic KLOKADOB: Community [address] y Number: [id number], [place] [id number] Repository 90863Mgc: (330) Date:6176-42-02UE [phone] () [address] [place] [address] 21674JW: 12/01/2017 Secondary NOT GIVENUNK Prentice Insurance:SELF PAY [facility] Number: Effective Repository Date:2017-12-01 12/01/2017 TOBIAS T Primary TOBIAS T Eva [id number] Insurance:MOLINAPolic KLOKADOB: Community [address] y Number: [id number], [place] [id number] Repository 27223Wmf: (330) Date:2567-67-95EV [phone] () [address] [place] [address] 18710TK: 12/01/2017 Secondary NOT GIVENUNK Prentice Insurance:SELF PAY [facility] Number: Effective Repository Date:2017-12-01 11/24/2017 TOBIAS T Primary TOBIAS T Eva [id number] Insurance:MOLINAPolic KLOKADOB: Community [address] y Number: [id number], [place] [id number] Repository 27377Gbk: (330) Date:8515-38-72QU [phone] () [address] [place] [address] 57042YJ: 11/24/2017 Secondary NOT GIVENUNK Prentice Insurance:SELF PAY [facility] Number: Effective Repository Date:2017-11-24 11/20/2017 TOBIAS T Primary TOBIAS T Prentice [id number] Insurance:MOLINAPolic KLOKADOB: Community [address] y Number: [id number], [place] [id number] Repository 92275Zeg: (330) Date:5525-62-84WX [phone] () [address] [place] [address] 06505ED: 11/20/2017 Secondary NOT GIVENUNK Eva Insurance:SELF PAY [facility] Number: Effective Repository Date:2017-09-23 11/17/2017 TOBIAS T Primary TOBIAS T Eva [id number] Insurance:MOLINAPolic KLOKADOB: Community [address] y Number: [id number], [place] [id number] Repository 34760Ryl: 330) Date:7310-88-92BX [phone] () [address] [place] [address] 21244HO: 11/17/2017 Secondary NOT GIVENUNK Eva Insurance:SELF PAY [facility] Number: Effective Repository Date:2017-11-17 11/17/2017 TOBIAS T Primary TOBIAS T Eva [id number] Insurance:MOLINAPolic KLOKADOB: Community [address] y Number: [id number], [place] [id number] Repository 14976Spb: (330) Date:8707-30-80ZF [phone] () [address] [place] [address] 06028UY: 11/17/2017 Secondary NOT GIVENUNK Prentice Insurance:SELF PAY [facility] Number: Effective Repository Date:2017-11-17 11/06/2017 TOIBAS T Primary TOBIAS T Eva [id number] Insurance:MOLINAPolic KLOKADOB: Community [address] y Number: [id number], [place] [id number] Repository 29686Ksu: (330) Date:1267-84-14ZM [phone] () [address] [place] [address] 27182PQ: 11/06/2017 Secondary NOT GIVENUNK Eva Insurance:SELF PAY [facility] Number: Effective Repository Date:2017-09-23 10/31/2017 TOBIAS T Primary TOBIAS T Prentice [id number] Insurance:MOLINAPolic KLOKADOB: Community [address] y Number: [id number], [place] [id number] Repository 75115Dqi: (330) Date:1861-66-61XU [phone] () [address] [place] [address] 51785ST: 10/31/2017 Secondary NOT GIVENUNK Eva Insurance:SELF PAY [facility] Number: Effective Repository Date:2017-10-31 10/23/2017 TOBIAS T Primary TOBIAS T Prentice [id number] Insurance:MOLINAPolic KLOKADOB: Community [address] y Number: [id number], [place] [id number] Repository 71207Hhw: (330) Date:1464-58-64OY [phone] () [address] [place] [address] 37791QB: 10/23/2017 Secondary NOT GIVENUNK Prentice Insurance:SELF PAY [facility] Number: Effective Repository Date:2017-09-23 10/17/2017 TOBIAS T Primary TOBIAS T Eva [id number] Insurance:MOLINAPolic KLOKADOB: Community [address] y Number: [id number], [place] [id number] Repository 92087Qcb: (330) Date:2680-53-45RP [phone] () [address] [place] [address] 73579FB: 10/17/2017 Secondary NOT GIVENUNK Eva Insurance:SELF PAY [facility] Number: Effective Repository Date:2017-10-17 10/09/2017 [facility] Primary TOBIAS T Eva [id number] Insurance:MOLINAPolic KLOKADOB: Community [address] y Number: [id number], [place] [id number] Repository 95645Jfb: (330) Date:0863-37-95PG [phone] () [address] [place] [address] 46611YN: 10/09/2017 Secondary NOT GIVENUNK Eva Insurance:SELF PAY [facility] Number: Effective Repository Date:2017-09-23 10/03/2017 [facility] Primary TOBIAS T Eva [id number] Insurance:MOLINAPolic KLOKADOB: Community [address] y Number: [id number], [place] [id number] Repository 36317Tih: (330) Date:2985-73-48CW [phone] () [address] [place] [address] 16688KZ: 10/03/2017 Secondary NOT GIVENUNK Prentice Insurance:SELF PAY [facility] Number: Effective Repository Date:2017-10-03 09/18/2017 [facility] Primary TOBIAS T Eva [id number] Insurance:MOLINAPolic KLOKADOB: Community [address] y Number: [id number], [place] [id number] Repository 28092Opu: (330) Date:5467-25-70GT [phone] () [address] [place] [address] 96481GB: 09/18/2017 Secondary NOT GIVENUNK Eva Insurance:SELF PAY [facility] Number: Effective Repository Date:2017-09-18 09/18/2017 TOBIAS T Primary TOBIAS T Eva [id number] Insurance:MOLINAPolic KLOKADOB: Community [address] y Number: [id number], [place] [id number] Repository 95945Wyr: (330) Date:7777-49-91AD [phone] () [address] [place] [address] 52880VO: 09/18/2017 Secondary NOT GIVENUNK Eva Insurance:SELF PAY [facility] Number: Effective Repository Date:2017-09-25 08/28/2017 TOBIAS T Primary TOBIAS T Prentice [id number] Insurance:MOLINAPolic KLOKADOB: Community [address] y Number: [id number], [place] [id number] Repository 43963Xgz: (330) Date:2302-24-39LZ [phone] () [address] [place] [address] 80370QV: 08/28/2017 Secondary NOT GIVENUNK Prentice Insurance:SELF PAY [facility] Number: Effective Repository Date:2017-08-28 08/01/2017 TOBIAS T Primary TOBIAS T Eva [id number] Insurance:MOLINAPolic KLOKADOB: Community [address] y Number: [id number], [place] [id number] Repository 15228Gxk: (330) Date:4816-96-02XC [phone] () [address] [place] [address] 58889LN: 08/01/2017 Secondary NOT GIVENUNK Eva Insurance:SELF PAY [facility] Number: Effective Repository Date:2017-08-01 07/22/2017 TOBIAS T Primary TOBIAS T Eva [id number] Insurance:MOLINAPolic KLOKADOB: Community [address] y Number: [id number], [place] [id number] Repository 69045Kmg: (330) Date:0436-39-71PM [phone] () [address] [place] [address] 05671BR: 07/22/2017 Secondary NOT GIVENUNK Eva Insurance:SELF PAY Community [facility] Number: Effective Repository Date:2017-07-22 07/22/2017 TOBIAS T Primary TOBIAS T Eva [id number] Insurance:MOLINAPolic KLOKADOB: Community [address] y Number: [id number], [place] [id number] Repository 20072Shf: 330) Date:3877-21-04RQ [phone] () [address] [place] [address] 66625CD: 07/22/2017 Secondary NOT GIVENUNK Prentice Insurance:SELF PAY [facility] Number: Effective Repository Date:2017-07-22 07/18/2017 TOBIAS T Primary TOBIAS T Prentice [id number] Insurance:MOLINAPolic KLOKADOB: Community [address] y Number: [id number], [place] [id number] Repository 66578Hop: (330) Date:7999-83-06SO [phone] () [address] [place] [address] 75832TN: 07/18/2017 Secondary NOT GIVENUNK Eva Insurance:SELF PAY [facility] Number: Effective Repository Date:2017-07-04 07/04/2017 TOBIAS T Primary TOBIAS T Prentice [id number] Insurance:WOOD KLOKADOB: Community [address] [facility]: [id number], [place] [id number] Repository 07936Kap: 330) Date:8553-53-60AN [phone] () [address] [place] [address] 88546LJ: 07/04/2017 Secondary NOT GIVENUNK Prentice Insurance:SELF PAY [facility] Number: Effective Repository Date:2017-07-04 07/04/2017 TOBIAS [id number] Primary TOBIAS KLOKADOB: Prentice [address] Insurance:WOOD [id number] Number: Hospital [address]Xpc: (437) [id number] Repository 98 (HP) Date:5910-17-37NX [address] [place] [address] 79822IL: 07/04/2017 Secondary NOT GIVENUNK Prentice Insurance:SELF PAY Community [facility] Number: Effective Repository Date:2017-07-04 06/06/2017 [id number] [place] KLOKADOB: Prentice [address] Insurance:WOOD [id number] [facility]ty Hospital [facility]Pol[facility] Number: Hospital 76671Qff: 330 [id number] Repository 98 (HP) Date:3115-72-85ZJ [address] [place] [address] 34676EY: 06/06/2017 Secondary NOT GIVENUNK Prentice Insurance:SELF PAY [facility] Number: Effective Repository Date:2017-05-09 05/26/2017 [id number] [place] KLOKADOB: Prentice [address] Insurance:WOOD [id number] [facility]annock [facility] Number: Hospital 51390Rmu: 330 [id number] Repository (HP) Date:6417-52-68QH [address] [place] [address] 03023AT: 05/26/2017 Secondary NOT GIVENUNK Prentice Insurance:SELF PAY [facility] Number: Effective Repository Date:2017-05-26 05/26/2017 [place] KLOKADOB: Primary [place] KLOKADOB: [facility] Insurance:MOLINAPolic [id number] Hospital [address] y Number: 2 [address] Repository [place], [place] [id number] [address] [place], [place] [address]Rtt: (330) Date: (HP) 05/09/2017 [place] [id number] Primary [place] KLOKADOB: Eva [address] Insurance:WOOD [id number] Specialty Hospital - BloomingtonPolic Number: Hospital 75834Fem: (330 [id number] Repository 98 (HP) Date:3392-56-13RZ [address] [address]WAEHPOCATELL[address], [place] [address]EY: 05/09/2017 Secondary NOT GIVENUNK Eva Insurance:SELF PAY [facility] Number: Effective Repository Date:2017-04-22
== END ==
PROVIDERS: Referring Provider Obstetrics & Gynecology; Visit Provider Obstetrics & Gynecology
DX: Z12.4 Encounter for screening for malignant neoplasm of cervix (principal)
CPT/HCPCS: 87624; 88175; G0145

== ENCOUNTER → 2018-08-24 14:57 | Outpatient (CLI) | payer MEDICAID, SELFPAY ==
[2018-05-06 12:28] VITALS: BMI 25.6
[2018-08-24 17:02] LABS: hCG Titer Quant., Serum 1830 mIU/mL (1-3)
== END ==
PROVIDERS: Referring Provider Obstetrics & Gynecology; Visit Provider Obstetrics & Gynecology
DX: O20.0 Threatened abortion (principal); Z3A.00 Weeks of gestation of pregnancy not specified
CPT/HCPCS: 36415; 84702

== ENCOUNTER → 2018-08-26 11:05 | Outpatient (CLI) | payer MEDICAID, SELFPAY ==
[2018-05-06 12:28] VITALS: BMI 25.6
[2018-08-26 12:33] LABS: hCG Titer Quant., Serum 3968 mIU/mL (1-3)
== END ==
PROVIDERS: Visit Provider Obstetrics & Gynecology
DX: O20.0 Threatened abortion (principal); Z3A.00 Weeks of gestation of pregnancy not specified
CPT/HCPCS: 36415; 84702

== ENCOUNTER → 2018-09-02 12:49 | Outpatient (CLI) | payer MEDICAID, SELFPAY ==
[2018-05-06 12:28] VITALS: BMI 25.6
== END ==
PROVIDERS: Referring Provider Obstetrics & Gynecology; Visit Provider Obstetrics & Gynecology
DX: N91.2 Amenorrhea, unspecified (principal)
CPT/HCPCS: 36415; 84702

== ENCOUNTER → 2018-09-30 13:47 | Outpatient (CLI) | payer MEDICAID, SELFPAY ==
[2018-09-30 12:57] VITALS: BMI 23.1
[2018-09-30 14:34] LABS: Absolute Lymphocyte Count 1.86 X10^3/ul (0.83-4.51); Absolute Neutrophil Count 9.8 X10^3/uL (2.0-7.7); Basophil# 0.02 X10^3/uL; Basophil% 0.2 % (0-1); Eosinophil# 0.21 X10^3/uL; Eosinophils% 1.7 % (0-5); Hematocrit 38.6 % (37-47); Lymphocyte # 1.86 X10^3/ul (4.0); Lymphocyte % 14.6 % (19-41); Mean Corp Hgb Conc 33.7 g/gl (32-36); Mean Corpuscular Hgb 31.4 pg (27.0-32.0); Mean Corpuscular Volume 93.2 fL (81-99); Mean Platelet Vol. 11.2 fl (6.2-12.0); Monocyte% 6.3 % (0-10); Neutrophil # 9.78 X10^3/uL (2.7-7.7); Neutrophil % 76.9 % (47-70); Platelet Count 242 K/mm3 (150-450); RBC Distribution Width CV 12.3 % (11.6-14.6); RBC Distribution Width SD 40.9 fl (35.1-43.9); Red Blood Count 4.14 M/mm3 (4.2-5.4); White Blood Count 12.7 K/mm3 (4.4-11.0)
[2018-09-30 14:35] LABS: POSITIVE COUNT NO; POSITIVE DIFFERENTIAL NO; POSITIVE MORPHOLOGY NO
[2018-09-30 15:27] LABS: HIV - WCH Non-Reactive (Nonreactive); Rubella IgG 19.5 IU/mL
[2018-09-30 23:56] LABS: Chlamydia Trachomatis by PCR Negative (Negative); Neisserai gonorrhoeae by PCR Negative (Negative); Probe Check PASS; Sample Adequacy Control PASS; Specimen Processing Control PASS
[2018-10-02 02:32] LABS: Rapid Plasmin Reagin (RPR) NONREACTIVE (NONREACTIVE)
[2018-10-08 16:50] LABS: HPV Reflexed? NOT INDICATED
== END ==
PROVIDERS: Referring Provider Obstetrics & Gynecology; Visit Provider Obstetrics & Gynecology
DX: Z34.81 Encounter for supervision of other normal pregnancy, first trimester (principal); Z12.4 Encounter for screening for malignant neoplasm of cervix
CPT/HCPCS: 36415; 85025; 86592; 86703; 86762; 86850; 86900; 87086; 87088; 87340; 87491; 87591; 87624; 88175; G0145

== ENCOUNTER → 2018-11-27 14:24 | Outpatient (CLI) | payer MEDICAID, SELFPAY ==
[2018-11-27 13:15] VITALS: BMI 25.6
== END ==
PROVIDERS: Referring Provider Obstetrics & Gynecology; Visit Provider Obstetrics & Gynecology
DX: O09.90 Supervision of high risk pregnancy, unspecified, unspecified trimester (principal); Z3A.00 Weeks of gestation of pregnancy not specified
CPT/HCPCS: 36415

== ENCOUNTER → 2019-01-21 16:20 | Outpatient (CLI) | payer MEDICAID, SELFPAY ==
[2019-01-21 15:19] VITALS: BMI 25.6
[2019-01-21 17:09] LABS: Absolute Lymphocyte Count 3.13 X10^3/uL (0.83-4.51); Absolute Neutrophil Count 13.8 X10^3/uL (2.0-7.7); Basophil# 0.07 X10^3/uL; Basophil% 0.4 % (0-1); Eosinophil# 0.44 X10^3/uL; Eosinophils% 2.4 % (0-5); Hematocrit 35.6 % (37-47); Hemoglobin 11.6 g/dL (12.0-15.0); Lymphocyte # 3.13 X10^3/ul (4.0); Mean Corp Hgb Conc 32.6 g/dL (32-36); Mean Corpuscular Hgb 31.1 pg (27.0-32.0); Mean Corpuscular Volume 95.4 fL (81-99); Mean Platelet Vol. 11.5 fl (6.2-12.0); Monocyte% 4.9 % (0-10); NRBC Flagged by Analyzer 0 % (0-5); Neutrophil # 13.76 X10^3/uL (2.7-7.7); Neutrophil % 74.8 % (47-70); Platelet Count 249 K/mm3 (150-450); RBC Distribution Width CV 12.1 % (11.6-14.6); RBC Distribution Width SD 41.8 fl (35.1-43.9); Red Blood Count 3.73 M/mm3 (4.2-5.4); White Blood Count 18.4 K/mm3 (4.4-11.0)
[2019-01-21 17:27] LABS: Glucose Challenge Gest 1H 50g 129 mg/dL (70-140)
== END ==
PROVIDERS: Referring Provider Obstetrics & Gynecology; Visit Provider Obstetrics & Gynecology
DX: Z34.92 Encounter for supervision of normal pregnancy, unspecified, second trimester (principal)
CPT/HCPCS: 36415; 82950; 85025

== ENCOUNTER → 2019-03-03 12:10 | Outpatient (CLI) | payer MEDICAID, SELFPAY ==
[2019-02-17 16:25] VITALS: BMI 25.6
--- NOTE | 2019-03-03 12:12 | US_ITS ---
STUDY: SECOND AND THIRD TRIMESTER OBSTETRICAL ULTRASOUND REASON FOR EXAM: Female, 28 years old . growth. LMP: July 20, 2018. TECHNIQUE: Transabdominal TECHNICAL QUALITY: Adequate. PRIOR ULTRASOUND: None. FINDINGS: There is a single intrauterine fetus. The fetus is in a cephalic presentation. There is demonstrated cardiac activity with a heart rate of 158 bpm. There is a normal amniotic fluid volume. The largest amniotic fluid pocket measures 4.7 cm. The amniotic fluid index (DANNY) is 13.8 cm. The placenta is posterior in location and is not low lying. There are Grade 1 placental changes. The cervix measures 3.9 cm in length. The adnexal regions are not visualized. BIOMETRY: BPD: 7.88 cm: 31 weeks, 4 days HC: 28.76 cm: 31 weeks, 4 days AC: 29.29 cm: 33 weeks, 1 days FL: 5.38 cm: 28 weeks, 3 days CI: 81% FL/BPD: 68% FL/HC: FL/AC: 18% HC/AC: 0.98 age by current US: 30 weeks, 6 days. MACHO by current US: May 06, 2019. Estimated weight: 1795 grams, +/- 266 grams, 18 %. Age by LMP: 32 weeks, 2 days. MACHO by LMP: April 26, 2019. US/OB Limited With Biometrics IMPRESSION: Single live intrauterine gestation with a mean gestational age of 30 weeks and 6 days. Electronically Signed: Valente Stanley, at 12:49 EST , Service support ,
== END ==
PROVIDERS: Referring Provider Obstetrics & Gynecology; Visit Provider Obstetrics & Gynecology
DX: Z84.82 Family history of sudden infant death syndrome (principal)
CPT/HCPCS: 76816

== ENCOUNTER → 2019-03-31 16:18 | Outpatient (CLI) | payer MEDICAID, SELFPAY ==
[2019-03-31 16:05] VITALS: BMI 25.6
== END ==
PROVIDERS: Referring Provider Nurse Practitioner Women's Health; Visit Provider Nurse Practitioner Women's Health
DX: O09.90 Supervision of high risk pregnancy, unspecified, unspecified trimester (principal); Z3A.00 Weeks of gestation of pregnancy not specified
CPT/HCPCS: 87081

== ENCOUNTER → 2019-03-31 17:04 | Outpatient (CLI) | payer MEDICAID, SELFPAY ==
[2019-03-18 16:26] VITALS: BMI 25.6
[2019-03-31 16:05] VITALS: BMI 25.6
--- NOTE | 2019-03-31 17:05 | US_ITS ---
STUDY: SECOND AND THIRD TRIMESTER OBSTETRICAL ULTRASOUND REASON FOR EXAM: Female, 28 years old growth. LMP: TECHNIQUE: Transabdominal TECHNICAL QUALITY: Adequate. PRIOR ULTRASOUND: 03/03/2019. FINDINGS: There is a single intrauterine fetus. The fetus is in a cephalic presentation. There is demonstrated cardiac activity with a heart rate of 152 bpm. There is a normal amniotic fluid volume. The largest amniotic fluid pocket measures 3.6 cm. The amniotic fluid index (DANNY) is 11.1 cm. The placenta is posterior in location and is not low lying. There are Grade 3 placental changes. The cervix measures 4.1 cm in length. The adnexal regions are not visualized. BIOMETRY: BPD: 8.9: 36 weeks, 1 days HC: 32.3: 36 weeks, 4 days AC: 32.3: 36 weeks, 2 days FL: 6.4: 33 weeks, 2 days CI: FL/BPD: FL/HC: FL/AC: HC/AC: age by current US: 35 weeks, 4 days. MACHO by current US: 05/01/2019. Estimated weight: 2681 grams, +/- 391 grams, 30 %. age by prior US: 34 weeks, 6 days. MACHO by prior US: 05/06/2019. Age by LMP: 36 weeks, 2 days. MACHO by LMP: 04/26/2019. US/OB Limited With Biometrics IMPRESSION: Single live fetus in a vertex presentation. survey not performed on this exam. Placenta is grade 3 and is not low-lying. age by current US: 35 weeks, 4 days. MACHO by current US: 05/01/2019. Estimated weight: 2681 grams, +/- 391 grams, 30 %. Electronically Signed: Dave Cunningham MD at 20:00 EST , Service support ,
== END ==
PROVIDERS: Referring Provider Obstetrics & Gynecology; Visit Provider Obstetrics & Gynecology
DX: O09.90 Supervision of high risk pregnancy, unspecified, unspecified trimester (principal); Z3A.00 Weeks of gestation of pregnancy not specified; Z84.82 Family history of sudden infant death syndrome
CPT/HCPCS: 76816; 87081

== ENCOUNTER 2019-04-23 09:25 | Inpatient (IN) | payer MEDICAID, SELFPAY ==
[2019-04-22 16:43] VITALS: BMI 27.0
[2019-04-23 09:36] VITALS: BMI 27.1
[2019-04-23] MEDS: Lactated Ringers 1,000 ML 50 ML IV (10:17)
[2019-04-23] MEDS: Oxytocin 30 units/NS 500 ml 30 UNITS/500 ML IV.SOLN IV (10:18)
[2019-04-23 10:35] LABS: Absolute Lymphocyte Count 3.12 X10^3/uL (0.83-4.51); Absolute Neutrophil Count 16.2 X10^3/uL (2.0-7.7); Basophil# 0.08 X10^3/uL; Basophil% 0.4 % (0-1); Eosinophil# 0.28 X10^3/uL; Eosinophils% 1.3 % (0-5); Hematocrit 34.8 % (37-47); Hemoglobin 11.5 g/dL (12.0-15.0); Lymphocyte # 3.12 X10^3/ul (4.0); Lymphocyte % 14.6 % (19-41); Mean Corpuscular Hgb 31.3 pg (27.0-32.0); Mean Corpuscular Volume 94.8 fL (81-99); Monocyte# 1.44 X10^3/uL; Monocyte% 6.8 % (0-10); NRBC Flagged by Analyzer 0 % (0-5); Neutrophil # 16.19 X10^3/uL (2.7-7.7); Neutrophil % 75.9 % (47-70); Platelet Count 330 K/mm3 (150-450); RBC Distribution Width CV 12.6 % (11.6-14.6); RBC Distribution Width SD 43.7 fl (35.1-43.9); Red Blood Count 3.67 M/mm3 (4.2-5.4); White Blood Count 21.3 K/mm3 (4.4-11.0)
[2019-04-23] MEDS: Lactated Ringers 500 ML 999 ML IV ×2 (10:46→12:45)
[2019-04-23] MEDS: fentaNYL-bupivacaine (epidural) 100 ML BAG EPIDURAL (12:46)
[2019-04-23] MEDS: Oxytocin 30 units/NS 500 ml 30 UNITS/500 ML IV.SOLN 334 UNITS IV (15:44)
--- NOTE | 2019-04-23 17:07 | PCM.HPOB.BLA ---
- Problem List (1) Depression affecting Status: Acute Comment: celexa, encouraged counseling (2) Family history of SIDS (sudden syndrome) Status: Acute Comment: growth us at 32 normal and 36 weeks (3) History of depression Status: Acute Comment: encouraged counseling, patient declines meds at present (4) Status: Acute Qualifiers: Comment: carrier negative. Panorama low risk, afp negative. Anatomy US normal (5) Supervision of high-risk Status: Acute Qualifiers: Comment: PRR MACHO 04/26/19 boy [facility] ([place] boyfriend Sukhwinder History and Physical Date of Admission: 04/23/19 Intake Vital Signs 04/22/19 BMI 27.0 04/22/19 Height 5 ft 4 in 04/22/19 Weight: 158 lb 04/22/19 BMI 27.1 04/22/19 BP 116/70 Intake Visit Reasons: 39 WK OB Chief Complaint: est ob Is patient in pain?: Yes Allergies No Known Allergies Allergy (Verified 04/22/19 16:20) Medications vitamin no.76-iron,carbonyl 29 mg iron-folic acid 1 mg tablet 1 tab PO DAILY #90 tab 04/29/18 [Rx Confirmed 04/22/19] Last Menstral Period: 08/01/18 Zika: Zika virus screening: Negative : No PFSH PFSH Family History Father No known health problems Mother No known health problems Social History (Updated 04/22/19 @ 16:54 by Justine Torres MD) household members: family housing: apartment current occupational status: unemployed pets and animals: No Smoking Status: Light Smoker (<10/day) second hand exposure: Yes alcohol intake: never details: not since being substance use type: does not use caffeine: Yes what type of physical activity do you participate in: walking seatbelt use: always do you feel safe at home: Yes additional social history: Sukhwinder Pregancy History 4 Elective abortions Hx Para 2 Spontaneous abortions 1 Hx # Term Pregnancies Ectopic pregnancies Hx # Pregnancies Multiple births # of living children 0 Past Pregnancies Del. Date Name GA/Weeks Outcome Route Bth Weight Infant Gen Labor Lgth Anesthesia Del Locatn Provider FOB 04/16/04 12/01/17 ( SIDS) 38 live - full term Male [facility] Delivery Date: 04/16/04 On 04/22/17 @ 10:33 Moriah Montgomery SAB Delivery Date: 12/01/17 On 04/01/18 @ 14:45 Zandra Alvarado [place], HPI 39 WK OB: Details: TOBIAS BAEZA is a 28 year old who presents for elective IOL secondary to favorable cervix and history of SIDS. OB Visit MACHO Calculator Estimated Delivery Date Method Current WG Current Estimate 04/26/19 Ultrasound #1 39w 3d Expected Delivery Route/Plan Labor Preferences- labor support person: sukhwinder pain management options preferred: epidural cut cord/dad catch: sukhwinder : yes PP control planned: discussed possible routes of delivery and associated risks: special requests: [] Specific Issue/Plans flu vaccine: declined tdap vaccine: declined rhogam: na LARC form signed: Problem list reviewed and updated with the most current plan of care details and appropriate orders placed. Relevant counseling for the gestational age provided. Continue routine care and follow up unless otherwise noted in visit notes/problem list details Initial Weight: 135 lb Date EGA Weight BP Urine Prot Glucose FHR FuHt Pres Mov CTX Dilation Effaced St Visit Note 10/30/18 14w 4d 139 lb (+4 lb) 106/62 Negative Negative 150 no vb lof cramping 11/27/18 18w 4d 144 lb (+9 lb) 100/72 150 no vb cramping 12/24/18 22w 3d 145 lb (+10 lb) 108/70 150 23 Active absent no vb cramping 01/21/19 26w 3d 146 lb (+11 lb) 102/40 Negative Negative 150 26 no vb cramping 02/17/19 30w 2d 153 lb 4 oz (+18 lb 4 oz) 120/66 Negative Negative 140 30 03/03/19 32w 2d 155 lb (+20 lb) 92/58 Negative Negative 145 33 no vb lof good fm no reg ctx 03/18/19 34w 3d 154 lb (+19 lb) 110/70 Negative Negative 145 34 no vb lof good fm no reg ctx 03/31/19 36w 2d 157 lb 4 oz (+22 lb 4 oz) 118/77 Negative Negative 138 36 1 40 -3 No VB, LOF. Good FM. GBS. Growth US today 04/05/19 37w 0d 159 lb (+24 lb) 122/64 Negative Negative 130 36 1.5 40 -1 SM - no vb lof good fm no regular ctx 04/12/19 38w 0d 157 lb 8 oz (+22 lb 8 oz) 116/74 Negative Negative 135 36 1.5 60 0 SM- no vb lof good fm no regular ctx, check fluid leve DANNY 04/22/19 39w 3d 158 lb (+23 lb) 116/70 135 38 3 60 0 SM- no vb lof good fm no regular ctx SM- no vb lof good fm no regular ctx. discussed IOL due to favorable cervix tomorrow. Notes Visit Date: 04/22/19 ??No visit notes to display Visit Date: 04/12/19 ??No visit notes to display Visit Date: 04/05/19 ??No visit notes to display Visit Date: 03/31/19 ??No visit notes to display Visit Date: 03/18/19 ??no vb lof good fm no reg ctx ??Justine Torres MD on 03/18/19 Visit Date: 03/03/19 ??no vb lof good fm no reg ctx ??Justine Torres MD on 03/03/19 Visit Date: 02/17/19 ??No visit notes to display Visit Date: 01/21/19 ??no vb cramping ??Justine Torres MD on 01/21/19 Visit Date: 12/24/18 ??no vb cramping ??Justine Torres MD on 12/24/18 Visit Date: 11/27/18 ??no vb cramping ??Justine Torres MD on 11/27/18 Visit Date: 10/30/18 ??no vb lof cramping ??Justine Torres MD on 10/30/18 ACOG First Trimester First Trimester: Desire for , Alcohol, Tobacco Cessation, Illicit/Recreational Drug/Substance Use, Intimate Partner Violence, Barriers to care, Unstable Housing, Communication Barriers, Environmental/Work Hazards, Anticipated Course of Care, Toxoplasmosis Precations, Use of Any medications, Sexual activity, Exercise, Dental Care, Sauna/Hot tub use, Seat Belt use, Childbirth classes/Hospital facilities, , Travel, Indications for US and Screening for Aneuploidy Second Trimester Second Trimester: Signs and Symptoms of Labor, Selecting a care provider, Reproductive Life Planning, Care Planning, Tobacco Cessation, Depression/Anxiety and Intimate Partner Violence Diagnostics Diagnostics Diagnostics Glucose 1 Hr 50 gm 129 mg/dL (70-140) 01/21/19 Hgb 11.6 g/dL (12.0-15.0) L 01/21/19 Hct 35.6 % (37-47) L 01/21/19 Details: HIV: Urine Culture: Sequential Screen: NIPT Screen: ROS Const Reports system reviewed and no additional complaints, except as docu Card Reports system reviewed and no additional complaints, except as docu Resp Reports system reviewed and no additional complaints, except as docu GI Reports system reviewed and no additional complaints, except as docu, Reports nausea Reports system reviewed and no additional complaints, except as docu Musc Reports system reviewed and no additional complaints, except as docu Exam Const General: cooperative, healthy appearing, comfortable, anxious HENMT Head: normal to inspection Nose: external nose normal Face and sinus: normal facial exam Neck Neck: normal visual inspection, full ROM, no lymphadenopathy Thyroid: thyroid normal Chest Chest palpation & inspection: normal inspection of the chest Resp Effort & Inspection: normal respiratory effort GI Inspection: normal to inspection Palpation: soft, other (gravid uterus) Other: infant vertex and appropriate size for gestational age Other: Cervical Exam: Extrem General: pedal edema Assessment & Plan Problems 1. Depression affecting O99.340; F32.9 2. 39 weeks gestation of Z3A.39 3. Supervision of high risk in first trimester O09. 4. History of depression Z86.59 5. Family history of SIDS (sudden infant syndrome) Z84.82 plan pitocin IOL epidural prn arom clear fluid Coding Level of Care Code Off vis,est,level 3 Diagnoses Depression affecting O99.340; F32.9 39 weeks gestation of Z3A.39 ??Weeks of gestation: 39 weeks Supervision of high risk in first trimester O09. ??Trimester: first trimester History of depression Z86.59 Family history of SIDS (sudden syndrome) Z84.82
--- NOTE | 2019-04-23 17:08 | OP.PCM_ITS ---
Problem List (1) Depression affecting Status: Acute Comment: celexa, encouraged counseling (2) Family history of SIDS (sudden syndrome) Status: Acute Comment: growth us at 32 normal and 36 weeks (3) History of depression Status: Acute Comment: encouraged counseling, patient declines meds at present (4) Status: Acute Qualifiers: Comment: carrier negative. Panorama low risk, afp negative. Anatomy US normal (5) Supervision of high-risk Status: Acute Qualifiers: Comment: PRR MACHO 04/26/19 boy [facility] ([place] boyfriend Sukhwinder Vaginal Delivery Maternal Presentation: Elective Induction iol elective history of SIDS Method of Induction: Pitocin Amniotic Membrane Rupture Type: Artificial Amniotic Fluid Description: Clear Final MACHO: 04/26/19 Gestational age: 39 Weeks and 4 Days Date of Procedure: 04/23/19 Pre-Operative Diagnosis: iol elective Post-Operative Diagnosis: same Surgery/ Procedure Performed: Spontaneous Vaginal Delivery Type of Anesthesia: Epidural Description of Procedure: Patient began pushing and delivered the head in the JADA presentation. The head was delivered atraumatically. The anterior and posterior shoulders delivered without complication followed by the rest of the and the was placed on the maternal abdomen. Delayed cord clamping was employed for approximately 60 seconds. Cord was clamped and cut and gentle traction was applied to the cord and the placenta delivered spontaneously immediately following it was noted to be intact with three-vessel cord. The perineum and vagina were inspected and have a small first-degree perineal laceration that was repaired in the usual fashion with 3-0 Vicryl Rapide. EBL was 200 cc. Patient and infant tolerated delivery well. Presentation: JADA Placental Delivery Description: Spontaneous Multi Select Codes - Urinary/Genital Urinary/Genital CPT Codes: 43493 Vaginal Delivery+ PP Care([facility])
[2019-04-23] MEDS: Acetaminophen 500 MG Tablet 1000 MG PO (19:14)
[2019-04-23 19:52] VITALS: BP 126/64; PULSE 113; RESP 18; TEMP 36.6; O2SAT 97
--- NOTE | 2019-04-23 23:17 | DCINST_ITS ---
Discharge Diet: No Restrictions Discharge Activity: Return to Normal Activity, May not drive while taking narcotic pain medications., May Shower May resume sexual activity in: 4-6 weeks Call your doctor if your incision/area has: Continuous Slow Oozing, Sudden Increased Bleeding, Increased Pain/ Swelling, Increased Redness, Foul Smelling Discharge Additional Instructions: If you experience any of the following, contact your healthcare provider. * Bleeding that soaks a pad every hour for 2 hours * Fever 100.4 or higher * Unrelieved incision or abdominal pain * Swelling, redness, discharge or bleeding from your incision or episiotomy site * Your incision begins to separate * Problems urinating (including inability to urinate or burning while urinating). * Visual changes * Severe headache * Flu-like symptoms * Pain or redness in one of both of your breasts * Pain, warmth, tenderness or swelling in your legs, especially the calf area * Frequent nausea and vomiting * Symptoms of depression or anxiety If you experience any of the following, call 911 or go to the nearest Emergency Room. * Chest pain * Problems breathing * Seizure activity * Partial or complete paralysis of a body part, slurred speech, weakness or drooping of the face, or a sudden inability to walk or hold your balance Allergies/Adverse Reactions: Allergies No Known Allergies Allergy (Verified 04/22/19 16:20) Medications to take at Discharge Vit,Calc76/Iron/Folic [PNV 29-1] 1 tab PO DAILY 04/23/19 Please Follow Up With: Justine Torres MD - [phone] When: Call to make an appointment with your doctor in 6 weeks. If you had elevated Blood pressure or 4th degree laceration you will need to be seen in 2 weeks. Primary Care Physician: Care Physician,No Primary [Primary Care Provider] - Test Results: Test results from this visit will be discussed in further detail at your follow- up appointment, if applicable.
--- NOTE | 2019-04-23 23:17 | PCM.DCVAG ---
Discharge Diet: No Restrictions Discharge Activity: Return to Normal Activity, May not drive while taking narcotic pain medications., May Shower May resume sexual activity in: 4-6 weeks Call your doctor if your incision/area has: Continuous Slow Oozing, Sudden Increased Bleeding, Increased Pain/ Swelling, Increased Redness, Foul Smelling Discharge Additional Instructions: If you experience any of the following, contact your healthcare provider. Bleeding that soaks a pad every hour for 2 hours Fever 100.4 or higher Unrelieved incision or abdominal pain Swelling, redness, discharge or bleeding from your incision or episiotomy site Your incision begins to separate Problems urinating (including inability to urinate or burning while urinating). Visual changes Severe headache Flu-like symptoms Pain or redness in one of both of your breasts Pain, warmth, tenderness or swelling in your legs, especially the calf area Frequent nausea and vomiting Symptoms of depression or anxiety If you experience any of the following, call 911 or go to the nearest Emergency Room. Chest pain Problems breathing Seizure activity Partial or complete paralysis of a body part, slurred speech, weakness or drooping of the face, or a sudden inability to walk or hold your balance Allergies/Adverse Reactions: Allergies No Known Allergies Allergy (Verified 04/22/19 16:20) Medications to take at Discharge Vit,Calc76/Iron/Folic [PNV 29-1] 1 tab PO DAILY 04/23/19 Please Follow Up With: Justine Torres MD - [phone] When: Call to make an appointment with your doctor in 6 weeks. If you had elevated Blood pressure or 4th degree laceration you will need to be seen in 2 weeks. Primary Care Physician: Care Physician,No Primary [Primary Care Provider] - Test Results: Test results from this visit will be discussed in further detail at your follow-up appointment, if applicable.
[2019-04-23 23:36] VITALS: BP 121/64; PULSE 93; RESP 18; TEMP 36.6
[2019-04-23] MEDS: Naproxen 250 MG Tablet 500 MG PO (23:38)
[2019-04-24 03:45] VITALS: BP 113/63; PULSE 88; RESP 18; TEMP 36.7
[2019-04-24] MEDS: oxyCODONE 5 MG Tablet PO ×4 (03:55→21:59)
[2019-04-24] MEDS: Acetaminophen 500 MG Tablet 1000 MG PO ×2 (05:26→15:13)
[2019-04-24] MEDS: Naproxen 250 MG Tablet 500 MG PO ×2 (07:35→17:08)
--- NOTE | 2019-04-24 07:52 | PN.OBGYN_ITS ---
Subjective: doing well no complaints pain controlled no CP SOB N V ambulating well tolerating po lochia moderate, going well - Physical Exam Vitals/I&O's: Vital Signs Temp Pulse Resp BP Pulse Ox 98.0 F 88 18 113/63 97 04/24/19 03:45 04/24/19 03:45 04/24/19 03:45 04/24/19 03:45 04/23/19 19:52 Oxygen Delivery Method Room Air Weight: 158 lb 1.143 oz Body Mass Index (BMI) 27.1 Intake and Output for Last 24 Hours 04/22/19 04/23/19 04/24/19 23:59 23:59 23:59 Intake Total 3885.14 / 3885.14 Output Total 2600 / 2600 Balance 1285.14 / 1285.14 General: Alert Laboratory Results 04/23/19 10:10: Blood Type O POSITIVE, Antibody Screen NEGATIVE 04/23/19 10:10: WBC 21.3 H, RBC 3.67 L, Hgb 11.5 L, Hct 34.8 L, MCV 94.8, MCH 31.3, MCHC 33.0, RDW Std Deviation 43.7, RDW Coeff of Jade 12.6, Plt Count 330, MPV 12.0, Immature Gran % (Auto) 1.000 H, Neut % (Auto) 75.9 H, Lymph % (Auto) 14.6 L, [place] % (Auto) 6.8, Eos % (Auto) 1.3, Baso % (Auto) 0.4, Absolute Neuts (auto) 16.2 H, Absolute Lymphs (auto) 3.12, Nucleated RBC % 0 Current Medications Acetaminophen (Tylenol) 1,000 mg PO Q8H PRN PRN PRN Reason: Pain Score 1-3/10 Last Admin: 04/24/19 05:26 Dose: 1,000 mg Documented by: Bisacodyl (Dulcolax) 10 mg RECTAL UD PRN PRN Reason: If no BM Dibucaine (Dibucaine) 1 applic TOPICAL TID PRN PRN; Protocol PRN Reason: Discomfort Hydrocortisone (Hytone) 1 applic TOPICAL TID PRN PRN; Protocol PRN Reason: Discomfort Methylergonovine Maleate (Methergine) 0.2 mg IM X1 PRN PRN Reason: Excess bleeding/uterine atony Naproxen (Naprosyn) 500 mg PO Q8H PRN PRN PRN Reason: Pain Score 1-3/10 Last Admin: 04/24/19 07:35 Dose: 500 mg Documented by: Ondansetron HCl (Zofran) 4 mg IV Q4H PRN PRN PRN Reason: Nausea Oxycodone HCl (Oxyir) 5 - 10 mg PO Q4H PRN PRN PRN Reason: Pain Score 4-10/10 Last Admin: 04/24/19 03:55 Dose: 5 mg Documented by: Multivit/Folic Acid/Iron (Prenatabs Fa) 1 tablet PO DAILY@1200 MICHELLE Senna/Docusate Sodium (Senokot-S, La-Colace) 1 - 2 tablet PO DAILY PRN PRN PRN Reason: Constipation Simethicone (Mylicon) 80 mg PO PCHS PRN PRN Reason: Indigestion/Stomach pain Sodium Chloride () 5 - 15 ml IV UD PRN PRN Reason: SALINE FLUSH Medical Necessity - Tobacco Use Smoking Status: Light Smoker (<10/day) Assessment/Plan All Active Problems (Last Reviewed 04/22/19 @ 16:20 by Zandra Alvarado) Depression affecting (Acute) (Acute) History of depression (Acute) Family history of SIDS (sudden syndrome) (Acute) Supervision of high-risk (Acute) screening encounter (Resolved) Choroid plexus cyst of fetus (Resolved) Mild depression (Resolved) Missed (Resolved) Oligohydramnios (Resolved) depression (Resolved) Supervision of high risk in first trimester (Resolved) Supervision of high risk , antepartum (Resolved) Tobacco smoking affecting (Resolved) Tobacco use complicating (Resolved) Uterine size date discrepancy (Resolved) s/p PPD # 1 1. routine post delivery care 2. breast feeding- support given 3. rh positive 4. rubella immune
[2019-04-24 08:40] VITALS: BP 120/72; PULSE 88; RESP 20; TEMP 36.6
[2019-04-24] MEDS: Prenatal Vits Tablet 1 TABLET PO (12:22)
[2019-04-24 12:25] VITALS: BP 113/73; PULSE 90; RESP 20; TEMP 36.7
[2019-04-24] MEDS: Senna/Docusate Sodium 1 Tablet PO (15:13)
[2019-04-24 17:00] VITALS: BP 110/63; PULSE 89; RESP 18; TEMP 36.9
[2019-04-24 20:00] VITALS: BP 132/80; PULSE 108; RESP 16; TEMP 36.3; O2SAT 96
--- NOTE | 2019-04-24 20:30 | CASEMGMT ---
Social Work Assessment Labor and Delivery Unit Date of Referral: 04/24/2019 Time of Referral: 14:08 Date of Intervention: 04/24/2019 Time of Intervention: 20:00 Reason for Referral: HX POST DEPRESSION, LOSS FROM SIDS-2017 History obtained from: MOB AND MEDICAL RECORD Household composition: MOB FOB-VOLODYMYR ALTAMIRANO. 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 Childcare/Caregiver(s): MOB STATES WILL BE MAIN CAREGIVER AND HAS GOOD SUPPORT FROM FAMILY. Transportation: NO ISSUES Programs/Agencies Involved: [facility], [facility] Children Services/Legal Issues: MOB DENIES ANY HX Behavioral Health Issues: Mental Health History: MOB REPORTS HX OF PPD AND STATES WAS PRESCRIBED CELEXA. MOB STATES WAS ONLY TAKING ANTIDEPRESSANT FOR A FEW MONTHS. MOB REPORTS SOUGHT COUNSELING AFTER LOSS OF 2 MONTH OLD FROM SIDS. MOB REPORTS 6 MONTHS LATER SISTER AGE 15 AFTER CHILD . Substance Use History: MOB DENIES ANY HISTORY. MOB REPORTS DOES HAVE HX OF TOBACCO USE AND STATES HAS DECREASED USE FROM A PACK A DAY TO JUST A COUPLE Family History: MOB REPORTS FAMILY HX OF SUBSTANCE ABUSE. MOB REPORTS MOTHER HAS HAD ISSUES WITH SUBSTANCE ABUSE. Family/Social Stressors: MOB REPORTS STRESSORS OF GOING FOR CUSTODY OF NIECE, GRIEF FROM LOSS OF BABY, AND SISTER. Support Systems: MOB STATES GOOD SUPPORT FROM HER FAMILY AND FOB'S FAMILY. Depression/Shaken Baby/Safe Sleeping DISCUSSION AND RESOURCES PROVIDED. ASSESSMENT: MET WITH MOB AND FOB IN ROOM. INTRODUCED ROLE AND REASON FOR REFERRAL. MOB REPORTS HX OF PPD WITH FIRST BORN, WHO AT 2 MONTHS OLD FROM SIDS. MOB REPORTS FEELING VERY HAPPY ABOUT OF [employer] STATING, I GOT ANOTHER CHANCE TO BE A MOM. MOB REPORTS LOST HER SISTER 6 MONTHS AFTER LOSS OF HER SON. MOB STATES HER SISTER SHORTLY AFTER SHE GAVE BRITH TO HER BABY GIRL ([employer] NIECE). MOB STATES IS GOING FOR CUSTODY OF HER NIECE AND CURRENTLY NIECE IS BEING TAKEN CARE OF BY FAMILY. MOB REPORTS WAS IN COUNSELING AFTER LOSS OF HER SON AND DECLINES ANY NEED FOR COUNSELING AT THIS TIME. MOB STATES GOOD SUPPORT FROM FAMILY AND FOB. FOB AND MOB AWARE OF SIGNS AND SYMPTOMS OF PPD. INFORMATIONAL PACKET PROVIDED AND ALL QUESTIONS ANSWERED. MOB REPORTS KNOWS SHE CAN TALK OPENLY WITH FOB ABOUT SYMPTOMS IF THEY ARISE AND WILL IMMEDIATELY TALK WITH DOCTOR IF NEEDED TO BE STARTED ON MEDICATION. LOCAL AREA RESOURCES PROVIDED. MOB DENIES ANY NEEDS FOR HOME GOING. UPDATED MOB'S NURSE ON THIS WORKER'S ASSESSMENT. PLAN: HOME WITH RESOURCES PROVIDED No other services requested or indicated. -Naina Nickerson, HUSKER OPERATOR, [employer]
[2019-04-25 02:50] VITALS: BP 118/68; PULSE 81; RESP 18; TEMP 36.6; O2SAT 99
[2019-04-25] MEDS: Acetaminophen 500 MG Tablet 1000 MG PO (02:53)
[2019-04-25] MEDS: Naproxen 250 MG Tablet 500 MG PO (07:18)
--- NOTE | 2019-04-25 07:51 | PCM.PN.OB ---
Subjective: doing well no complaints pain controlled no CP SOB N V ambulating well tolerating po lochia moderate, going well - Physical Exam Vitals/I&O's: Vital Signs Temp Pulse Resp BP Pulse Ox 97.9 F 81 18 118/68 99 04/25/19 02:50 04/25/19 02:50 04/25/19 02:50 04/25/19 02:50 04/25/19 02:50 Oxygen Delivery Method Room Air Weight: 158 lb 1.143 oz Body Mass Index (BMI) 27.1 Intake and Output for Last 24 Hours 04/23/19 04/24/19 04/25/19 23:59 23:59 23:59 Intake Total 3885.14 / 3885.14 Output Total 2600 / 2600 Balance 1285.14 / 1285.14 General: Alert, Oriented x3 Current Medications Acetaminophen (Tylenol) 1,000 mg PO Q8H PRN PRN PRN Reason: Pain Score 1-3/10 Last Admin: 04/25/19 02:53 Dose: 1,000 mg Documented by: Bisacodyl (Dulcolax) 10 mg RECTAL UD PRN PRN Reason: If no BM Dibucaine (Dibucaine) 1 applic TOPICAL TID PRN PRN; Protocol PRN Reason: Discomfort Hydrocortisone (Hytone) 1 applic TOPICAL TID PRN PRN; Protocol PRN Reason: Discomfort Methylergonovine Maleate (Methergine) 0.2 mg IM X1 PRN PRN Reason: Excess bleeding/uterine atony Naproxen (Naprosyn) 500 mg PO Q8H PRN PRN PRN Reason: Pain Score 1-3/10 Last Admin: 04/25/19 07:18 Dose: 500 mg Documented by: Ondansetron HCl (Zofran) 4 mg IV Q4H PRN PRN PRN Reason: Nausea Oxycodone HCl (Oxyir) 5 - 10 mg PO Q4H PRN PRN PRN Reason: Pain Score 4-10/10 Last Admin: 04/24/19 21:59 Dose: 5 mg Documented by: Multivit/Folic Acid/Iron (Prenatabs Fa) 1 tablet PO DAILY@1200 MICHELLE Last Admin: 04/24/19 12:22 Dose: 1 tablet Documented by: Senna/Docusate Sodium (Senokot-S, La-Colace) 1 - 2 tablet PO DAILY PRN PRN PRN Reason: Constipation Last Admin: 04/24/19 15:13 Dose: 2 tablet Documented by: Simethicone (Mylicon) 80 mg PO PCHS PRN PRN Reason: Indigestion/Stomach pain Sodium Chloride () 5 - 15 ml IV UD PRN PRN Reason: SALINE FLUSH Medical Necessity - Tobacco Use Smoking Status: Light Smoker (<10/day) Assessment/Plan All Active Problems (Last Reviewed 04/22/19 @ 16:20 by Zandra Alvarado) Depression affecting (Acute) (Acute) History of depression (Acute) Family history of SIDS (sudden infant syndrome) (Acute) Supervision of high-risk (Acute) screening encounter (Resolved) Choroid plexus cyst of fetus (Resolved) Mild depression (Resolved) Missed (Resolved) Oligohydramnios (Resolved) depression (Resolved) Supervision of high risk in first trimester (Resolved) Supervision of high risk , antepartum (Resolved) Tobacco smoking affecting (Resolved) Tobacco use complicating (Resolved) Uterine size date discrepancy (Resolved) s/p PPD # 2 1. routine post delivery care 2. breast feeding- support given 3. rh positive 4. rubella immune
[2019-04-25 09:15] VITALS: BP 114/72; PULSE 92; RESP 20; TEMP 36.7
[2019-04-25] MEDS: oxyCODONE 5 MG Tablet PO (09:30)
--- NOTE | 2019-04-25 11:48 | NURSING ---
Addendum for afternoon 04/24/19 to morning of this shift. Pt. very appropriate with , meeting needs, holding, talking to . FOB reserved with , but is seen holding infant at times. FOB sleeping quite a bit in room. Per convo in afternoon of 04/24/19 - infant with hiccups. Discussing sending for circ. FOB states maybe after the hiccups. Pt. states uh, yeah. You actually have a girl, not a boy and FOB quickly responds I'd murder everyone. This reported to CALIN Chew prior to her seeing the patient. FOB is otherwise appropriate with staff. Parents very anxious about going home, nervous with hx. of son they lost to SIDS in 2018. Also upset that infant referred hearing screening, but reassured that this does happen and that it means that he needs rescreened, not necessarily that is has hearing loss, but also that hearing loss has not been ruled out. Verbalizing that they will definitely take for follow-up.
== END 2019-04-25 11:30 | disposition home or self-care (01) | DRG 560 ==
PROVIDERS: Admitting Provider Obstetrics & Gynecology; Referring Provider Obstetrics & Gynecology; Visit Provider Obstetrics & Gynecology
DX: O99.340 Other mental disorders complicating pregnancy, unspecified trimester (principal); F32.9 Major depressive disorder, single episode, unspecified; Z84.82 Family history of sudden infant death syndrome; F17.200 Nicotine dependence, unspecified, uncomplicated; O99.334 Smoking (tobacco) complicating childbirth; O70.0 First degree perineal laceration during delivery; Z37.0 Single live birth; Z3A.39 39 weeks gestation of pregnancy
CPT/HCPCS: 59025; 59050; 85025; 86850; 86900; 86901; 99218; J7120; G0378

== ENCOUNTER → 2019-06-07 14:39 | Outpatient (CLI) | payer MEDICAID, SELFPAY ==
[2019-06-07 14:32] VITALS: BMI 27.1
[2019-06-07 15:10] LABS: Absolute Lymphocyte Count 2.66 X10^3/uL (0.83-4.51); Absolute Neutrophil Count 5.1 X10^3/uL (2.0-7.7); Basophil# 0.11 X10^3/uL; Basophil% 1.2 % (0-1); Eosinophil# 0.95 X10^3/uL; Hematocrit 44.9 % (37-47); Hemoglobin 14.5 g/dL (12.0-15.0); Lymphocyte # 2.66 X10^3/ul (4.0); Mean Corp Hgb Conc 32.3 g/dL (32-36); Mean Corpuscular Hgb 30.4 pg (27.0-32.0); Mean Corpuscular Volume 94.1 fL (81-99); Mean Platelet Vol. 10.9 fl (6.2-12.0); Monocyte# 0.64 X10^3/uL; Monocyte% 6.7 % (0-10); NRBC Flagged by Analyzer 0 % (0-5); Neutrophil # 5.13 X10^3/uL (2.7-7.7); Neutrophil % 53.9 % (47-70); Platelet Count 310 K/mm3 (150-450); RBC Distribution Width CV 12.3 % (11.6-14.6); RBC Distribution Width SD 42.9 fl (35.1-43.9); Red Blood Count 4.77 M/mm3 (4.2-5.4); White Blood Count 9.5 K/mm3 (4.4-11.0)
[2019-06-07 15:32] LABS: hCG Titer Quant., Serum < 1 mIU/mL (1-3)
[2019-06-07 15:38] LABS: T4 Free Direct 0.88 ng/dL (0.76-1.46); Thyroid Stim Hormone (TSH) 0.55 uIU/mL (0.358-3.74)
== END ==
PROVIDERS: Referring Provider Obstetrics & Gynecology; Visit Provider Obstetrics & Gynecology
DX: N93.9 Abnormal uterine and vaginal bleeding, unspecified (principal)
CPT/HCPCS: 36415; 84439; 84443; 84702; 85025

== ENCOUNTER 2020-07-08 22:54 | Emergency (ER) | payer MEDICAID, SELFPAY ==
[2019-06-07 14:32] VITALS: BMI 27.1
[2020-07-08 22:55] VITALS: BP 131/103; PULSE 146; RESP 20; TEMP 36.4; O2SAT 95; BMI 24.9
--- NOTE | 2020-07-08 23:44 | ED.VIS.PSYCH ---
History of Present Illness Informant: Patient Context: Gradual Onset Conflict: Family Timing: Continuous Current Severity: Severe Maximum Severity: Severe Worsened by: Situational factors, Alcohol intoxication Relieved by: nothing Associated Symptoms: Depressed, Change in sleeping, Decreased Interest, Decreased Concentration, Hopelessness, Suicidal Thoughts Specific plan (suicidal thought): tried to jump in front of a truck Narrative: Patient had a young son recently and it is also the anniversary of a different family member who and she is feeling more depressed than usual. She has been under no treatment for her depression. She rarely drinks alcohol but drink to the point of intoxication tonight, and tried to jump in front of a moving vehicle to kill herself, but states since she was intoxicated she was about 30 seconds off and it was unsuccessful. Her mother accompanies her here, both agree and that she wants help. She breaks down and cries, saying that she is having suicidal thoughts every day even when she is not intoxicated. She does not do any other drugs. She is healthy otherwise and takes no prescriptions. She has undergone no counseling for these issues. <Gianni Soler - Last Filed: 07/09/20 01:30> <Luciano Persaud - Last Filed: 07/09/20 16:39> Chief Complaint: Suicidal - Past Medical History (1) History of depression Status: Chronic Comment: encouraged counseling, patient declines meds at present <Gianni Soler - Last Filed: 07/09/20 01:30> Past Medical History Lives: With Family - 1-yr-old child Smoking Status: Light Smoker (<10/day) Alcohol: Rare Drugs: None <Gianni Soler - Last Filed: 07/09/20 01:30> <Luciano Persaud - Last Filed: 07/09/20 16:39> - Allergies and Home Meds Allergies/Adverse Reactions: Allergies No Known Allergies Allergy (Verified 07/08/20 22:55) Primary Care Physician: Care Physician,No Primary [Primary Care Provider] - Review of Systems General: Denies: Chills, Fever, Sweats Eyes: Denies: Visual changes - bilaterally, Diplopia ENT: Denies: Rhinorrhea, Sore throat Cardiovascular: Denies: Chest pain, Palpitations Respiratory: Denies: Dyspnea, Cough, Dyspnea on exertion Gastrointestinal: Denies: Abdominal pain, Nausea, Vomiting, Diarrhea, Melena, Hematochezia Genitourinary: Denies: Dysuria, Hematuria, Frequency Musculoskeletal: Denies: Back pain, Extremity Pain Skin: Denies: Rash, Wounds Neurological: Denies: Headache, Weakness, Numbness Psych: Reports: Depression, Anxiety, Suicidal thoughts, Suicidal ideations <Gianni Soler - Last Filed: 07/09/20 01:30> Physical Exam Vital Signs/Narrative: Vital Signs Temp Pulse Resp BP Pulse Ox 07/08/20 22:55 97.5 F L 146 H 20 H 131/103 H 95 Inital Vital Signs reviewed: Yes General: Well nourished, Well developed, - - NAD. grossly intoxicated. Head: Normocephalic, Atraumatic Eyes: Perrl, EOMI - w/ horiz nystagmus ENT: Moist mucous membranes, No rhinorrhea Neck: Supple, Nontender Cardiovascular: Regular rate, Regular rhythm, No murmurs, Tachycardia Respiratory: No distress, CTA bilaterally, Chest nontender Abdomen: Soft, Nontender, Nondistended, Normal bowel sounds Back: Nontender, Normal Inspection. Negative for: CVA tenderness Extremities: Nontender, No Edema Skin: Normal color, No rash, No Trauma Neurological: Alert, Oriented x3, Cranial nerves II-XII grossly intact, Normal Strength, Normal Sensation Psych: Depressed - And tearful, Labile, Suicidal thoughts, Poor Judgement. Negative for: Homicidal thoughts, Hallucinations, Delusions, Paranoid Ideation <Gianni Soler - Last Filed: 07/09/20 01:30> Vital Signs/Narrative: Vital Signs Temp Pulse Resp BP Pulse Ox 07/09/20 13:55 98 F 115 H 20 H 123/89 H 94 <Luciano Persaud - Last Filed: 07/09/20 16:39> Diagnostic/Tx/Re-eval Laboratory Tests 07/09/20 07/09/20 07/08/20 Range/Units 00:20 00:05 00:20 WBC (4.4-11.0) K/mm3 RBC (4.2-5.4) M/mm3 Hgb (12.0-15.0) g/dL Hct (37-47) % MCV (81-99) fL MCH (27.0-32.0) pg MCHC (32-36) g/dL RDW Std Deviation (35.1-43.9) fl RDW Coeff of Jade (11.6-14.6) % Plt Count (150-450) K/mm3 MPV (6.2-12.0) fl Immature Gran % (Auto) (0.0-0.9) % Neut % (Auto) (47-70) % Lymph % (Auto) (19-41) % [place] % (Auto) (0-10) % Eos % (Auto) (0-5) % Baso % (Auto) (0-1) % Absolute Neuts (auto) (2.0-7.7) X10^3/uL Absolute Lymphs (auto) (0.83-4.51) X10^3/uL Nucleated RBC % (0-5) % Sodium (136-145) mmol/L Potassium (3.5-5.1) mmol/L Chloride (98-107) mmol/L Carbon Dioxide (21.0-32.0) mmol/L Anion Gap (5-15) BUN (7-18) mg/dL Creatinine (0.55-1.02) mg/dL Estim Creat Clear Calc ml/min Est GFR (MDRD) Af Amer (>60) mL/min Est GFR (MDRD) Non-Af (>60) mL/min BUN/Creatinine Ratio (10-20) RATIO Glucose (74-106) mg/dL Calcium (8.5-10.1) mg/dL Total Bilirubin (0.20-1.00) mg/dL AST (15-37) U/L ALT (13-56) U/L Alkaline Phosphatase (45-117) U/L Total Protein (6.4-8.2) g/dL Albumin (3.2-5.0) g/dL Globulin (2.2-4.2) g/dL Albumin/Globulin Ratio (0.9-2.4) RATIO Serum , Qual NEGATIVE Negative Urine Color Yellow (Yellow) Urine Clarity Clear (Clear) Urine pH 7.0 (5.0 - 8.0) Ur Specific [place] 1.005 (1.002-1.030) Urine Protein Negative (Negative) mg/dl Urine Glucose (UA) Normal (Normal) mg/dl Urine Ketones Negative (Negative) mg/dl Urine Occult Blood Negative (Negative) /ul Urine Nitrite Negative (Negative) Urine Bilirubin Negative (Negative) mg/dL Urine Urobilinogen Normal (Normal) mg/dl Ur Leukocyte Esterase 25 H (Negative) /ul Urine RBC 0-5 SEEN (0-5) /hpf Urine WBC 0-5 SEEN (0-5) /hpf Ur Squamous Epith Cells 0-5 SEEN (5-10) /hpf Amorphous Sediment RARE Urine Bacteria RARE (None Seen) /hpf Urine Mucus 0 SEEN (<or=2+) /hpf Urine Opiates Screen (< 300 ng/mL) Urine Methadone Screen (< 300 ng/mL) Ur Barbiturates Screen (< 200 ng/mL) Ur Phencyclidine Scrn (< 25 ng/mL) Ur Amphetamines Screen (<1000 ng/mL) U Methamphetamin-MDMA (< 500 ng/mL) U Benzodiazepines Scrn (< 200 ng/mL) Urine Cocaine Screen (< 300 ng/mL) U Cannabinoids Screen (< 50 ng/mL) Ur Drug Screen Comment Ethyl Alcohol 370.0 H* mg/dL 07/08/20 07/08/20 07/08/20 Range/Units 00:20 00:20 00:05 WBC 10.9 (4.4-11.0) K/mm3 RBC 4.95 (4.2-5.4) M/mm3 Hgb 15.7 H (12.0-15.0) g/dL Hct 46.5 (37-47) % MCV 93.9 (81-99) fL MCH 31.7 (27.0-32.0) pg MCHC 33.8 (32-36) g/dL RDW Std Deviation 41.2 (35.1-43.9) fl RDW Coeff of Jade 12.0 (11.6-14.6) % Plt Count 413 (150-450) K/mm3 MPV 10.6 (6.2-12.0) fl Immature Gran % (Auto) 0.600 (0.0-0.9) % Neut % (Auto) 53.6 (47-70) % Lymph % (Auto) 38.5 (19-41) % [place] % (Auto) 4.8 (0-10) % Eos % (Auto) 1.6 (0-5) % Baso % (Auto) 0.9 (0-1) % Absolute Neuts (auto) 5.8 (2.0-7.7) X10^3/uL Absolute Lymphs (auto) 4.18 (0.83-4.51) X10^3/uL Nucleated RBC % 0 (0-5) % Sodium 143 (136-145) mmol/L Potassium 3.9 (3.5-5.1) mmol/L Chloride 112 H (98-107) mmol/L Carbon Dioxide 24.0 (21.0-32.0) mmol/L Anion Gap 7 (5-15) BUN 12 (7-18) mg/dL Creatinine 0.83 (0.55-1.02) mg/dL Estim Creat Clear Calc 85.58 ml/min Est GFR (MDRD) Af Amer 103 (>60) mL/min Est GFR (MDRD) Non-Af 85 (>60) mL/min BUN/Creatinine Ratio 14.4 (10-20) RATIO Glucose 92 (74-106) mg/dL Calcium 8.6 (8.5-10.1) mg/dL Total Bilirubin 0.50 (0.20-1.00) mg/dL AST 10 L (15-37) U/L ALT 27 (13-56) U/L Alkaline Phosphatase 88 (45-117) U/L Total Protein 7.9 (6.4-8.2) g/dL Albumin 4.2 (3.2-5.0) g/dL Globulin 3.7 (2.2-4.2) g/dL Albumin/Globulin Ratio 1.1 (0.9-2.4) RATIO Serum , Qual Negative Urine Color (Yellow) Urine Clarity (Clear) Urine pH (5.0 - 8.0) Ur Specific [place] (1.002-1.030) Urine Protein (Negative) mg/dl Urine Glucose (UA) (Normal) mg/dl Urine Ketones (Negative) mg/dl Urine Occult Blood (Negative) /ul Urine Nitrite (Negative) Urine Bilirubin (Negative) mg/dL Urine Urobilinogen (Normal) mg/dl Ur Leukocyte Esterase (Negative) /ul Urine RBC (0-5) /hpf Urine WBC (0-5) /hpf Ur Squamous Epith Cells (5-10) /hpf Amorphous Sediment Urine Bacteria (None Seen) /hpf Urine Mucus (<or=2+) /hpf Urine Opiates Screen NEGATIVE (< 300 ng/mL) Urine Methadone Screen NEGATIVE (< 300 ng/mL) Ur Barbiturates Screen NEGATIVE (< 200 ng/mL) Ur Phencyclidine Scrn NEGATIVE (< 25 ng/mL) Ur Amphetamines Screen NEGATIVE (<1000 ng/mL) U Methamphetamin-MDMA NEGATIVE (< 500 ng/mL) U Benzodiazepines Scrn NEGATIVE (< 200 ng/mL) Urine Cocaine Screen POSITIVE H (< 300 ng/mL) U Cannabinoids Screen NEGATIVE (< 50 ng/mL) Ur Drug Screen Comment Ethyl Alcohol mg/dL Other than alcohol in the presence of cocaine, her medical work-up is negative and she is medically cleared to be evaluated by psychiatry, although she will be monitored here and allowed to sober up. She was quite worked up about having to stay here, we offered her a Zyprexa Zydis to help her calm down so she could sleep the alcohol off for the rest of the shift superintendent caustic cresylate. This really seemed to help. Discussed outside the room with mother, who helped talk her into staying cooperatively. <Gianni Soler - Last Filed: 07/09/20 01:30> Care of the patient was turned over to me pending repeat alcohol level. This was ordered and was better at 79. At that time, crisis was in to evaluate the patient. Patient currently denies any suicidal ideations. Patient wants to go home. Mother is here with her and will take responsibility for her. Jaky from crisis will help arrange for counseling as an outpatient. She is agreeable to start counseling as an outpatient. Mother and patient were advised to return if worse in any way. They understood and were agreeable with the plan. All questions were answered. <Luciano Persaud - Last Filed: 07/09/20 16:39> Disposition: Home <Luciano Persaud - Last Filed: 07/09/20 16:39> ED Disposition <Gianni Soler - Last Filed: 07/09/20 01:30> <Luciano Persaud - Last Filed: 07/09/20 16:39> - Plan for ED Patient: Disposition: Home or Assisted Living Diagnosis: Alcohol intoxication, Depression Instructions: ED Depression, CONTRACT, No Harm Referrals: Counseling,Center [GROUP OF PHYSICIANS] - As soon as possible
[2020-07-08] MEDS: OLANZapine 5 MG/TAB TAB.RAPDIS PO (23:57)
[2020-07-09] VITALS (14 sets, daily range): BP systolic 117–128; BP diastolic 74–89; PULSE 72–115; RESP 15–20; TEMP 36.3–36.6; O2SAT 94–98
[2020-07-09 00:26] LABS: Mucous, Urine 0 SEEN /hpf (<or=2+)
[2020-07-09 00:27] LABS: Amphetamine Urine VISTA NEGATIVE (<1000 ng/mL); Barbiturate Urine VISTA NEGATIVE (< 200 ng/mL); Benzodiazepine Urine VISTA NEGATIVE (< 200 ng/mL); Cocaine Urine VISTA POSITIVE (< 300 ng/mL); Ecstacy Urine VISTA NEGATIVE (< 500 ng/mL); Methadone Urine VISTA NEGATIVE (< 300 ng/mL); PCP Urine VISTA NEGATIVE (< 25 ng/mL); THC Urine VISTA NEGATIVE (< 50 ng/mL); Vista UDS pH Range 6
[2020-07-09 00:27] LABS: Color, Urine Yellow (Yellow); Glucose, Dipstick Normal (Normal); Ketone-Dipstick Negative (Negative); Leukocyte Esterase-Dipstick 25 /ul (Negative); Nitrite-Dipstick Negative (Negative); Occult Blood-Urine Negative /ul (Negative); Protein-Dipstick Negative (Negative); Specific Gravity, Urine 1.005 (1.002-1.030); Urine Bilirubin Dipstick Negative (Negative); Urine Clarity Clear (Clear); Urine Urobilinogen Normal (Normal)
[2020-07-09 00:29] LABS: Absolute Lymphocyte Count 4.18 X10^3/uL (0.83-4.51); Absolute Neutrophil Count 5.8 X10^3/uL (2.0-7.7); Basophil% 0.9 % (0-1); Eosinophil# 0.17 X10^3/uL; Eosinophils% 1.6 % (0-5); Hematocrit 46.5 % (37-47); Hemoglobin 15.7 g/dL (12.0-15.0); Lymphocyte # 4.18 X10^3/ul (4.0); Lymphocyte % 38.5 % (19-41); Mean Corp Hgb Conc 33.8 g/dL (32-36); Mean Corpuscular Hgb 31.7 pg (27.0-32.0); Mean Corpuscular Volume 93.9 fL (81-99); Mean Platelet Vol. 10.6 fl (6.2-12.0); Monocyte# 0.52 X10^3/uL; Monocyte% 4.8 % (0-10); NRBC Flagged by Analyzer 0 % (0-5); Neutrophil # 5.82 X10^3/uL (2.7-7.7); Neutrophil % 53.6 % (47-70); Platelet Count 413 K/mm3 (150-450); RBC Distribution Width SD 41.2 fl (35.1-43.9); Red Blood Count 4.95 M/mm3 (4.2-5.4); White Blood Count 10.9 K/mm3 (4.4-11.0)
[2020-07-09 00:44] LABS: ALB/GLOB Ratio 1.1 RATIO (0.9-2.4); AST(SGOT) 10 U/L (15-37); Alanine Aminotransfer ALT/SGPT 27 U/L (13-56); Albumin, Serum 4.2 g/dL (3.2-5.0); Alkaline Phosphatase 88 U/L (45-117); Anion Gap 7 (5-15); BUN 12 mg/dL (7-18); BUN/Creat Ratio 14.4 RATIO (10-20); Calcium,Total 8.6 mg/dL (8.5-10.1); Chloride 112 mmol/L (98-107); Creatinine, Serum 0.83 mg/dL (0.55-1.02); EST Glomerular Filtration Rate 85 mL/min (>60); Est Glom Filt Rate - Afr Amer 103 mL/min (>60); Estimated Creatinine Clearance 85.58 ml/min; Globulin 3.7 g/dL (2.2-4.2); Glucose 92 mg/dL (74-106); Potassium 3.9 mmol/L (3.5-5.1); Protein, Total 7.9 g/dL (6.4-8.2); Sodium Level 143 mmol/L (136-145)
[2020-07-09 00:56] LABS: Amorphous Sediment RARE; Bacteria RARE /hpf (None Seen); Red Blood Cells-Urine 0-5 SEEN /hpf (0-5); Squamous Epithelial Cells - UA 0-5 SEEN /hpf (5-10); White Blood Cells 0-5 SEEN /hpf (0-5)
[2020-07-09 00:57] LABS: Internal QC Validated? YES +Cl - CLEAR BKGD; Pregnancy, Serum, hCG Quali. NEGATIVE Negative
--- NOTE | 2020-07-09 21:46 | ED.RN ---
07/08/[address] QUINTERO PT WILL NOT REQUIRE A SITTER AT BEDSIDE. PT IS CURRENTLY BEING OBSERVED IN A ROOM WHERE SUPPLIES ARE LOCKED AWAY AND CAMERA IS ON. MOTHER AT BEDSIDE
== END 2020-07-09 17:15 | disposition home or self-care (01) ==
PROVIDERS: Emergency Medicine; Emergency Provider Emergency Medicine
DX: F10.129 Alcohol abuse with intoxication, unspecified (principal); F32.9 Major depressive disorder, single episode, unspecified; F17.200 Nicotine dependence, unspecified, uncomplicated
CPT/HCPCS: 36415; 80053; 80307; 81001; 82077; 84703; 85025; 99283

== ENCOUNTER → 2021-01-25 12:50 | Outpatient (CLI) | payer MEDICAID, SELFPAY ==
[2021-01-30 16:54] LABS: HPV APTIMA, High Risk Negative (Negative)
== END ==
PROVIDERS: Referring Provider Nurse Practitioner Women's Health; Visit Provider Nurse Practitioner Women's Health
DX: R30.0 Dysuria (principal); N76.0 Acute vaginitis
CPT/HCPCS: 87070; 87086; 87088; 87205; 87624; 88175; G0145

== ENCOUNTER 2022-03-04 21:52 | Emergency (ER) | payer MEDICAID, SELFPAY ==
[2022-03-04 21:54] VITALS: BP 118/90; PULSE 83; RESP 16; TEMP 36.8; O2SAT 97; BMI 21.4
[2022-03-04] MEDS: Ondansetron ODT 4 MG Tablet PO (22:36)
--- NOTE | 2022-03-04 22:42 | EDS_ITS ---
HPI History of Present Illness Chief Complaint: Substance Abuse Narrative Narrative: 31-year-old female presents via EMS with alcohol intoxication. She states that she took fentanyl that someone gave her a few days ago and she feels now she is in withdrawal. She vomited without any blood in her emesis. Her called the squad because he thought she needed detox. However, she declines detox and states that she has only been on a silvestre and has been drinking alcohol/vodka over the last few days. She states she freaked out and wanted to make sure that everything was okay because she felt her heart was racing because she was in withdrawal from fentanyl. She had taken this because she had hip pain and someone told her that that would make her feel better. She denies daily alcohol use other than the last few days. She denies any suicidal ideation. She states she does not normally abuse fentanyl but she snorted it 2 to 3 days ago. [facility] Home Medications NK 07/08/20 [History Last Taken Unknown] Allergy/AdvReac Type Severity Reaction Status Date / Time No Known Allergies Allergy Verified 03/04/22 21:59 Family History Father No known health problems Mother No known health problems Social History household members: family housing: apartment current occupational status: unemployed pets and animals: No Smoking Status: Current every day smoker tobacco type: cigarettes second hand exposure: Yes alcohol intake: never details: not since being substance use type: does not use caffeine: Yes what type of physical activity do you participate in: walking seatbelt use: always do you feel safe at home: Yes additional social history: Sukhwinder ROS ROS ED ROS Narrative Constitutional: No fever, no chills. HEENT: No sore throat. No neck pain. No loss of vision. No rhinorrhea. Cardiovascular: No chest pain. No palpitations. No pedal edema. Respiratory: No cough, no shortness of breath. Abdominal: No abdominal pain. 1 episode of nausea and vomiting. Genitourinary: No dysuria. No hematuria. Musculoskeletal: No myalgias. No arthralgias currently. Neurologic: No headaches. No dizziness. No lightheadedness. Skin: No rash. No change in color. Psychiatric: No depression. No anxiety. No suicidal ideation. EXAM Physical Exam Narrative Exam Narrative: Afebrile. Vital signs noted. Vomit on clothing. HEENT: Normocephalic. Atraumatic. PERRL, EOMI. Neck soft and supple. No point tenderness or step off. Cardiovascular: Regular rate and rhythm. No murmurs, rubs, or gallops appreciated. Respiratory: No tachypnea. Lungs clear to auscultation bilaterally. Gastrointestinal: Abdomen soft, nontender, with normoactive bowel sounds. No rebound or guarding. Neurological: Awake. Alert. Oriented x3. Nonfocal, nonlateralizing. Skin: No rash. Normal color. No pallor. Musculoskeletal: No pedal edema. Full range of motion extremities. Psychiatric: States does not want detox. Denies suicidal ideation. Const Vital Signs: 03/04/22 21:54 Temperature 98.2 F Temperature Source Temporal Pulse Rate 83 Respiratory Rate 16 Blood Pressure 118/90 H Blood Pressure Mean 99 Pulse Ox 97 Oxygen Delivery Method Room Air MDM MDM MDM Narrative Medical decision making narrative: Patient states she does not want detox. She declines any laboratory testing. She was told to stop abusing alcohol and fentanyl. I discussed patient with her over the telephone who states he will come pick her up as detox needs to be voluntary and currently she is denying the need for it. She was given Zofran for nausea. At this point in time, I feel she can be discharged safely home with follow-up. Should she want detox in the future, she can return to the emergency department for medical clearance if a bed is available. Disposition is discharged home in stable condition. Discharge Plan Triage Chief Complaint: Substance Abuse ED Provider: Ish Montero Dx/Rx/DC Orders Clinical Impression: Alcohol abuse, Mild fentanyl abuse, Nausea & vomiting Instructions: ED Opiate Abuse, ED Alcohol Abuse Prescriptions: No Action NK Primary Care Provider: Care Physician,No Primary Disposition Disposition: Home, Self Care
[2022-03-04 23:16] VITALS: PULSE 97; RESP 15; O2SAT 98
== END 2022-03-05 00:40 | disposition home or self-care (01) ==
PROVIDERS: Emergency Provider Emergency Medicine; Visit Provider Emergency Medicine
DX: F10.10 Alcohol abuse, uncomplicated (principal); F11.10 Opioid abuse, uncomplicated; R11.2 Nausea with vomiting, unspecified
CPT/HCPCS: 99284

== ENCOUNTER 2024-04-27 13:25 | Inpatient (IN) | payer MEDICAID, SELFPAY ==
[2024-04-27 13:26] VITALS: BP 163/115; PULSE 94; RESP 15; TEMP 35.9; O2SAT 98; BMI 19.9
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
[2024-04-27 14:26] VITALS: BP 147/82; PULSE 84; RESP 16; TEMP 36.9; O2SAT 99
[2024-04-27 14:26] LABS: Absolute Lymphocyte Count 1.28 X10^3/uL (0.83-4.51); Absolute Neutrophil Count 5.6 X10^3/uL (2.0-7.7); Basophil# 0.07 X10^3/uL; Basophil% 0.9 % (0-1); Eosinophil# 0.06 X10^3/uL; Eosinophils% 0.8 % (0-5); Hematocrit 38.7 % (37-47); Hemoglobin 13.3 g/dL (12.0-15.0); Lymphocyte # 1.28 X10^3/ul (0.83-4.51); Lymphocyte % 16.5 % (19-41); Mean Corp Hgb Conc 34.4 g/dL (32-36); Mean Corpuscular Hgb 32.3 pg (27.0-32.0); Mean Corpuscular Volume 93.9 fL (81-99); Mean Platelet Vol. 10.3 fl (6.2-12.0); Monocyte# 0.78 X10^3/uL; NRBC Flagged by Analyzer 0 % (0-5); Neutrophil # 5.55 X10^3/uL (2.7-7.7); Neutrophil % 71.3 % (47-70); Platelet Count 166 K/mm3 (150-450); RBC Distribution Width CV 13.6 % (11.6-14.6); RBC Distribution Width SD 46.7 fl (35.1-43.9); Red Blood Count 4.12 M/mm3 (4.2-5.4); White Blood Count 7.8 K/mm3 (4.4-11.0)
[2024-04-27 14:40] LABS: Internal QC Validated? YES +Cl - CLEAR BKGD
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
[2024-04-27 14:41] LABS: Pregnancy, Serum, hCG Quali. NEGATIVE Negative
[2024-04-27 14:51] LABS: Alcohol, Blood (Medical)-Serum < 3.0 mg/dL
[2024-04-27 14:56] LABS: ALB/GLOB Ratio 0.9 RATIO (0.9-2.4); AST(SGOT) 218 U/L (15-37); Alanine Aminotransfer ALT/SGPT 87 U/L (13-56); Albumin, Serum 3.5 g/dL (3.2-5.0); Alkaline Phosphatase 255 U/L (45-117); Anion Gap 9 (5-15); BUN 9 mg/dL (7-18); BUN/Creat Ratio 15.1 RATIO (10-20); Chloride 102 mmol/L (98-107); EST Glomerular Filtration Rate 122 mL/min (>60); Est Glom Filt Rate - Afr Amer 148 mL/min (>60); Estimated Creatinine Clearance 109.74 ml/min; Glucose 99 mg/dL (74-106); Magnesium 1.3 mg/dL (1.6-2.6); Phosphorus 3.2 mg/dL (2.5-4.9); Potassium 2.8 mmol/L (3.5-5.1); Protein, Total 7.5 g/dL (6.4-8.2); Sodium Level 139 mmol/L (136-145)
[2024-04-27 15:00] VITALS: BP 142/71; PULSE 78; RESP 16; O2SAT 99
[2024-04-27 15:05] LABS: Amphetamine Urine VISTA POSITIVE (<1000 ng/mL); Barbiturate Urine VISTA NEGATIVE (< 200 ng/mL); Benzodiazepine Urine VISTA NEGATIVE (< 200 ng/mL); Cocaine Urine VISTA NEGATIVE (< 300 ng/mL); Ecstacy Urine VISTA NEGATIVE (< 500 ng/mL); Methadone Urine VISTA NEGATIVE (< 300 ng/mL); PCP Urine VISTA NEGATIVE (< 25 ng/mL); THC Urine VISTA NEGATIVE (< 50 ng/mL); Vista UDS pH Range 5
[2024-04-27] MEDS: Potassium Chloride Oral Tablet 20 MEQ 40 MEQ PO (15:10)
[2024-04-27] MEDS: Potassium Chloride Oral Tablet 20 MEQ 60 MEQ PO (15:20)
[2024-04-27] MEDS: Potassium Chloride 10mEq/100mL 10 MEQ/100 ML IV.SOLN. 100 MEQ IV BOLUS ×2 (15:30→17:51)
[2024-04-27 16:00] VITALS: PULSE 85; RESP 18; O2SAT 97
[2024-04-27 17:34] VITALS: BMI 19.9
[2024-04-27 17:36] VITALS: BP 120/89; PULSE 85; RESP 16; TEMP 36.8; O2SAT 100
[2024-04-27] MEDS: Phenobarbital 32.4 MG Tablet 64.8 MG PO ×2 (18:00→21:42)
[2024-04-27] MEDS: Magnesium Sulfate 4gm/100mL 4 GM/100 ML IV.SOLN. IV (20:15)
[2024-04-27 21:32] VITALS: BP 129/83; PULSE 85; RESP 16; TEMP 37.2; O2SAT 99
[2024-04-27] MEDS: 0.9% Normal Saline (1000mL) 1,000 ML 100 ML IV (21:44)
[2024-04-28] VITALS (7 sets, daily range): BP systolic 129–136; BP diastolic 89–105; PULSE 75–92; RESP 15–18; TEMP 36.6–37.2; O2SAT 99–100
[2024-04-28] MEDS: Phenobarbital 32.4 MG Tablet 64.8 MG PO ×6 (01:36→22:04)
[2024-04-28 06:23] LABS: ALB/GLOB Ratio 0.9 RATIO (0.9-2.4); AST(SGOT) 113 U/L (15-37); Alanine Aminotransfer ALT/SGPT 62 U/L (13-56); Albumin, Serum 2.9 g/dL (3.2-5.0); Alkaline Phosphatase 204 U/L (45-117); Anion Gap 4 (5-15); BUN 4 mg/dL (7-18); BUN/Creat Ratio 7.9 RATIO (10-20); Calcium,Total 8.6 mg/dL (8.5-10.1); Chloride 107 mmol/L (98-107); EST Glomerular Filtration Rate 148 mL/min (>60); Est Glom Filt Rate - Afr Amer 180 mL/min (>60); Estimated Creatinine Clearance 131.69 ml/min; Globulin 3.4 g/dL (2.2-4.2); Glucose 100 mg/dL (74-106); Magnesium 2.2 mg/dL (1.6-2.6); Potassium 3.5 mmol/L (3.5-5.1); Protein, Total 6.3 g/dL (6.4-8.2); Sodium Level 138 mmol/L (136-145)
[2024-04-28] MEDS: Folic Acid 1 MG Tablet PO (10:22)
[2024-04-28] MEDS: Thiamine Hydrochloride 100 MG Tablet PO (10:22)
--- NOTE | 2024-04-28 10:56 | ADDICTION ---
This keno writer/runner met with PT to conduct ASAM, MSE, AUDIT, DUDIT assessments and to plan for d/c. PT A+Ox4 and participated actively. All assessments completed. PT plans to f/u with [facility] at [facility] for follow-up in patient treatment services on if approved. [facility] will transport to treatment.
--- NOTE | 2024-04-28 11:33 | PN.HOSP_ITS ---
Subjective Subjective Doing well, no issues overnight. CIWA score 1 Objective Data Objective Data Vital Signs: Vital Signs Temp Pulse Resp BP Pulse Ox O2 Del Method 99 F 85 16 132/90 H 100 Room Air 04/28/24 10:17 04/28/24 10:17 04/28/24 10:17 04/28/24 10:17 04/28/24 10:17 04/28/24 10:17 Oxygen Delivery Method Room Air Weight: 116 lb Body Mass Index (BMI) 19.9 Intake & Output: Intake and Output for Last 24 Hours 04/27/24 04/28/24 04/29/24 03:59 03:59 03:59 Intake Total 1225 / 1225 500 / 500 Balance 1225 / 1225 500 / 500 Lab / Micro Data 04/27/24 14:15 04/28/24 04:54 Labs: Laboratory Results - last 24 hr 04/27/24 14:10: Urine Opiates Screen POSITIVE H, Urine Methadone Screen NEGATIVE, Ur Barbiturates Screen NEGATIVE, Ur Phencyclidine Scrn NEGATIVE, Ur Amphetamines Screen POSITIVE H, MDMA (Ecstasy) Screen NEGATIVE, U Benzodiazepines Scrn NEGATIVE, Urine Cocaine Screen NEGATIVE, U Cannabinoids Screen NEGATIVE, Ur Drug Screen Comment 04/27/24 14:15: WBC 7.8, RBC 4.12 L, Hgb 13.3, Hct 38.7, MCV 93.9, MCH 32.3 H, MCHC 34.4, RDW Std Deviation 46.7 H, RDW Coeff of Jade 13.6, Plt Count 166, MPV 10.3, Immature Gran % (Auto) 0.500, Neut % (Auto) 71.3 H, Lymph % (Auto) 16.5 L, [place] % (Auto) 10.0, Eos % (Auto) 0.8, Baso % (Auto) 0.9, Absolute Neuts (auto) 5.6, Absolute Lymphs (auto) 1.28, Nucleated RBC % 0, Sodium 139, Potassium 2.8 L , Chloride 102, Carbon Dioxide 28.0, Anion Gap 9, BUN 9, Creatinine 0.60, Estim Creat Clear Calc 109.74, Est GFR (MDRD) Af Amer 148, Est GFR (MDRD) Non-Af 122, BUN/Creatinine Ratio 15.1, Glucose 99, Calcium 9.0, Phosphorus 3.2, Magnesium 1.3 L, Total Bilirubin 1.30 H, AST 218 H, ALT 87 H, Alkaline Phosphatase 255 H, Total Protein 7.5, Albumin 3.5, Globulin 4.0, Albumin/Globulin Ratio 0.9, Serum , Qual NEGATIVE, Ethyl Alcohol < 3.0 04/28/24 04:54: Sodium 138, Potassium 3.5, Chloride 107, Carbon Dioxide 27.0, A nion Gap 4 L, BUN 4 L, Creatinine 0.50 L, Estim Creat Clear Calc 131.69, Est GFR (MDRD) Af Amer 180, Est GFR (MDRD) Non-Af 148, BUN/Creatinine Ratio 7.9 L, Glucose 100, Calcium 8.6, Magnesium 2.2, Total Bilirubin 0.70, AST 113 H, ALT 62 H, Alkaline Phosphatase 204 H, Total Protein 6.3 L, Albumin 2.9 L, Globulin 3.4, Albumin/Globulin Ratio 0.9 Physical Exam Narrative General: Alert, Oriented x3, Cooperative, No apparent distress HEENT: Atraumatic, PERRLA, EOMI, Normocephalic Oral: Moist Mucosa Neck: Supple, No JVD Lungs: Clear to auscultation, Normal air movement, No rhonchi, No wheeze, No rales Cardiovascular: Regular rate, Regular Rhythm, Normal S1, Normal S2, No murmurs Abdomen: Soft, Non Tender, Non-Distended, No Hepato-splenomegaly Extremities: No edema, Capillary Refill Less than 3 Seconds Skin: No rashes, No breakdown Musculoskeletal: No Tenderness to Palpation of Joints or Extremities Neurological: No focal neurological deficits, Motor Exam 5/5 strength throughout, Sensory exam intact to light touch and pain Psych/Mental Status: Normal Affect, Appropriate Assessment & Plan Assessment/Plan (1) Desire for detoxification: (2) Alcohol withdrawal: PLAN: Plan 1. Alcohol withdrawal requesting detox/elevated LFTs/tobacco abuse ? Continue with the alcohol withdrawal protocol ? Plan for inpatient rehab on discharge ? LFTs are due to alcohol will monitor as an outpatient ? Discussed tobacco cessation DVT: Ambulation Charges/Coding Visit Charges Inpatient E&M: 02449 Subs Hosp L2
[2024-04-29 01:46] VITALS: BP 136/82; PULSE 78; RESP 18; TEMP 37.1; O2SAT 99
[2024-04-29] MEDS: Phenobarbital 32.4 MG Tablet 64.8 MG PO ×3 (01:50→09:52)
[2024-04-29 05:19] VITALS: BP 132/82; PULSE 82; RESP 16; TEMP 36.6; O2SAT 100
[2024-04-29 07:50] VITALS: BP 109/82; PULSE 78; RESP 18; TEMP 37.2; O2SAT 100
[2024-04-29] MEDS: Thiamine Hydrochloride 100 MG Tablet PO (07:55)
[2024-04-29] MEDS: Folic Acid 1 MG Tablet PO (07:55)
[2024-04-29 08:07] VITALS: O2SAT 98
--- NOTE | 2024-04-29 11:16 | DCINST_ITS ---
Discharge Instructions Diet Discharge Diet: No restrictions DC O2, CPAP, BIPAP needs Home O2 Discharge instructions: No Dressing / Incision Discharge Activity: Return to Normal Activity Dressing / Incision Call your doctor if you observe: Fever of 101 or Higher, Shortness of breath, Dizziness, Fainting spells, Swelling in the ankles, Chest pain and Increased palpitations (irregular heartbeat) Follow Up Care Test Results: Test results from this visit will be discussed in further detail at your follow- up appointment, if applicable. Discharge Plan Admission Admit Date/Time: 04/27/24 15:02 Attending Provider: Kota Darby Primary Care Provider: Care Physician,No Primary Consulting Providers: Sarah Ruffin Discharge Orders/Prescriptions Prescriptions: No Action NK Referrals / Follow Up: Care Physician,No Primary [Primary Care Provider] - Disposition Disposition (needs filled in before D/C Order can be placed): Inpatient Rehab Unit/Facility
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
[2024-04-29 11:29] VITALS: BP 135/89; PULSE 82; RESP 18; TEMP 37.1; O2SAT 99
--- NOTE | 2024-04-29 15:01 | CHAPLAIN ---
Type of Pastoral Visit ___ Initial Visit ___ Follow-up Visit ___ On-call Visit ___ General Patient Visit ___ Spiritual Assessment ___ Family Conference ___ Bereavement ___ Rapid Response ___ Code Blue _x__ Other (describe below) Pastoral Care Referral From _x__ Patient ___ Family ___ Nurse ___ Physician ___ Paint Spraying Machine Operator Helper ___ Ship Rigger ___ Other (describe below) Sacrament/Intervention ___ Active listening ___ Anointing ___ Zoroastrian ___ Bereavement ___ Communion ___ Xin exploration ___ ___ Life review ___ Prayer ___ Reconciliation ___ Sacrament of Sick ___ Supportive presence ___ Wedding ___ Other (describe below) Pastoral Comments patient was no longer in the hospital when this validation scientist made attempt to visit
== END 2024-04-29 12:27 | disposition home or self-care (01) | DRG 773 ==
LOC: ED 14:14 → MS3 16:16
PROVIDERS: Admitting Provider Internal Medicine; Emergency Provider Emergency Medicine; Visit Provider Family Medicine
DX: F10.239 Alcohol dependence with withdrawal, unspecified (principal); F11.10 Opioid abuse, uncomplicated; E83.42 Hypomagnesemia; F15.20 Other stimulant dependence, uncomplicated; F17.210 Nicotine dependence, cigarettes, uncomplicated; E87.6 Hypokalemia; E87.8 Other disorders of electrolyte and fluid balance, not elsewhere classified; R74.01 Elevation of levels of liver transaminase levels; R03.0 Elevated blood-pressure reading, without diagnosis of hypertension; R00.2 Palpitations; Z84.82 Family history of sudden infant death syndrome; R05.9 Cough, unspecified; Y90.0 Blood alcohol level of less than 20 mg/100 ml
CPT/HCPCS: 36415; 80053; 80307; 82077; 83735; 84100; 84703; 85025; 99283; 99406; A4216

== ENCOUNTER → 2024-05-27 | Outpatient (CLI) | payer MEDICAID, SELFPAY ==
[2024-05-29 05:07] LABS: HEPATITIS B SURFACE AG Negative (Negative); Hep B Surface Antibodies Non Reactive (.); Hepatitis B Core Ab Total Negative (Negative); Hepatitis C Ab Non Reactive (Non Reactive)
[2024-06-01 14:44] LABS: HIV - WCH Non-Reactive (Nonreactive); Syphilis Antibodies Non-reactive
== END | disposition home or self-care (01) ==
PROVIDERS: PCP Nurse Practitioner Family; Visit Provider Nurse Practitioner Family
DX: Z11.3 Encounter for screening for infections with a predominantly sexual mode of transmission (principal)
CPT/HCPCS: 36415; 86703; 86704; 86705; 86706; 86707; 86780; 86803; 87340; 87350